=== PATIENT | male | born 1930 | race Caucasian/White ===

== ENCOUNTER 2018-10-29 09:17 | Inpatient (IN) | payer OTHER, BC ==
--- NOTE | 2018-10-29 09:26 | PDOC ---
Attending Attestation - Resident Resident Name: Cliff Romero (aldo) - HPI HPI: 10/29/18 11:49 Pt presents to the ED complaining of frequent falls. Found to be febrile in the ED. Denies other complaints except for back pain. - Physicial Exam PE: 10/29/18 12:29 Agree with resident exam. Patient is alert and oriented and in no acute distress. CV: rrr no m/r/g Pulm: cta b/l Abdomen: soft, non tender, non distended. Ext: RLE pitting edemia, unchanged from chronic as per patient. - Medical Decision Making 10/29/18 12:31 Pt presents to the ED complaining of falls. Found to be febrile. Also found to have UTI. agreeable to abx despite MOLST form. Will start levaquin and admit to medicine.
--- NOTE | 2018-10-29 09:35 | PDOC ---
History of Present Illness - General Chief Complaint: Injury Stated Complaint: FALL Time Seen by Provider: 10/29/18 09:26 History Source: Patient Exam Limitations: No Limitations - History of Present Illness Initial Comments: 10/29/18 10:01 87 yo male pmh of seizures, HTN and a recently replaced pacemaker presents to the ER after an unwitnessed fall [facility]. Pt has had 2 falls over the last 24 hours which is unusual for him. Pt denies CP, palpitations, SOB prior to the falls or after them, denies LUCIA, LOC, changes in speech/vision/strength/sensation , neck pain, back pain, abdominal pain. Pt is AOX3, no medical complaints. Past History - Past Medical History Allergies/Adverse Reactions: Allergies Allergy/AdvReac Type Severity Reaction Status Date / Time No Known Allergies Allergy Verified 10/29/18 09:24 Home Medications: Ambulatory Orders Acetaminophen [Tylenol] 650 mg PO Q6H PRN 10/29/18 Amlodipine Besylate 5 mg PO DAILY 10/29/18 Apixaban [Eliquis] 2.5 mg PO DAILY 10/29/18 Cholecalciferol (Vitamin D3) [Vitamin D3] 2,000 unit PO DAILY 10/29/18 Finasteride 5 mg PO DAILY 10/29/18 Levetiracetam 500 mg PO BID 10/29/18 Levothyroxine [Synthroid -] 50 mcg PO DAILY 10/29/18 Menthol/Dimeth/Aloe Vera/Vit E [Gold Torres Body Lotion] 1 applic TP BID 10/29/18 Metoprolol Succinate [Kapspargo Sprinkle] 50 mg PO DAILY 10/29/18 Multivit-Min/FA/Lycopen/Lutein [Centrum Silver Tablet] 1 each PO DAILY 10/29/18 Ramipril [Altace] 2.5 mg PO DAILY 10/29/18 Tamsulosin HCl [Flomax] 0.4 mg PO DAILY 10/29/18 - Suicide/Smoking/Psychosocial Hx Smoking History: Never smoked Hx Alcohol Use: No Drug/Substance Use Hx: No Review of Systems - Review of Systems Constitutional: No: Chills, Fever HEENTM: No: Blurred Vision, Double Vision Respiratory: No: Shortness of Breath, Productive cough Cardiac (ROS): No: Chest Pain ABD/GI: No: Constipated, Diarrhea, Nausea, Vomiting : No: Burning, Dysuria, Discharge, Frequency, Flank Pain Musculoskeletal: No: Back Pain Integumentary: No: Change in Color Neurological: No: Headache, Numbness, Paresthesia, Weakness *Physical Exam - Vital Signs Last Vital Signs Temp Pulse Resp BP Pulse Ox 100.0 F H 105 H 18 137/62 96 10/29/18 09:24 10/29/18 09:24 10/29/18 09:24 10/29/18 09:24 10/29/18 09:24 - Physical Exam General Appearance: Yes: Nourished, Appropriately Dressed. No: Apparent Distress HEENT: positive: EOMI, KASH Neck: positive: Supple. negative: Carotid bruit Respiratory/Chest: positive: Lungs Clear, Normal Breath Sounds, Respiratory Distress. negative: Accessory Muscle Use, Crackles, Rales, Rhonchi, Stridor, Wheezing Cardiovascular: positive: Regular Rhythm, S1, S2, Tachycardia. negative: Edema , JVD, Murmur Vascular Pulses: Dorsalis-Pedis (R): 4+, Doralis-Pedis (L): 4+ Gastrointestinal/Abdominal: positive: Flat, Soft. negative: Pulsatile Mass, Distended, Guarding, Rebound, Tenderness Musculoskeletal: positive: Normal Inspection. 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 Pt has had 2 falls over the last 24 hours which is unusual for him. Pt denies CP, palpitations, SOB prior to the falls or after them, denies LUCIA, LOC, changes in speech/vision/strength/sensation , neck pain, back pain, abdominal pain. Pt is AOX3, no medical complaints. message for Yanely Cao at [phone], message left at 10 27 am vitals show elevated HR and temp Yanely present in the ED, states the discrepancy in MOLST form regarding no antibiotics was unknown and will discuss with legal team Sepsis order set done Pt has hx of UTIs will straight cath and likely admit 10/29/18 13:54 Given IV antibiotics and fluids WBC count 19 UA positive URINE LEUKOCYTE ESTERASE 3+ and 200+ WBC Pt has hx of UTI as per deborah Discussed case with Dr. Nicholson, agrees to have pt admitted for urosepsis *DC/Admit/Observation/Transfer Diagnosis at time of Disposition: UTI (urinary tract infection) - Discharge Dispostion Condition at time of disposition: Stable Decision to Admit order: Yes - Referrals - Patient Instructions - Post Discharge Activity
[2018-10-29 12:07] LABS: BASO % 0.3 % (0-2.0); HEMOGLOBIN 10.9 GM/dL (11.7-16.9); LYMPH % 7.4 % (8-40); MCH 33.3 pg (25.7-33.7); MCHC 33.9 g/dl (32.0-35.9); MEAN CELL VOLUME 98.3 fl (80-96); MEAN PLT VOLUME 8.5 fl (7.5-11.1); MONO % 7.9 % (3.8-10.2); NEUT % 84.4 % (42.8-82.8); PLATELET COUNT 185 K/MM3 (134-434); RBC 3.26 M/mm3 (4.00-5.60); RDW 13.3 % (11.9-15.9); WHITE BLOOD COUNT 19.1 K/mm3 (4.0-10.0)
[2018-10-29 12:10] LABS: VENOUS PC02 34.9 mmHg (38-52); VENOUS PH 7.44 (7.31-7.41)
[2018-10-29 12:12] LABS: VENOUS PO2 < 49 mmHg (28-48)
[2018-10-29 12:17] LABS: EPI CELLS 0.5 /HPF (0-5/HPF); HYALINE CASTS 1 /lpf (0-8); URINE APPEARANCE CLOUDY; URINE BACTERIA 4974.7 /hpf (NEGATIVE); URINE BILIRUBIN NEGATIVE (NEGATIVE); URINE COLOR YELLOW; URINE GLUCOSE (UA) NEGATIVE (NEGATIVE); URINE KETONE NEGATIVE (NEGATIVE); URINE LEUK ESTERASE 3+ (NEGATIVE); URINE NITRITE NEGATIVE (NEGATIVE); URINE PROTEIN 2+ (NEGATIVE); URINE RBC 3 /hpf (0-4); URINE UROBILINOGEN 0.2 mg/dL (0.2-1.0); URINE WBC 235 /hpf (0-5)
[2018-10-29 12:22] LABS: INR 1.7 (0.83-1.09); PROTHROMBIN TIME (PATIENT) 20.2 SEC (9.7-13.0)
[2018-10-29 12:36] LABS: ALBUMIN 3.2 g/dl (3.4-5.0); ALK PHOS 82 U/L (45-117); ANION GAP 9 MMOL/L (8-16); CALCIUM 9.2 mg/dL (8.5-10.1); CHLORIDE 106 mmol/L (98-107); CO2 25 mmol/L (21-32); CREATININE 1.8 mg/dL (0.55-1.3); GLUCOSE,RANDOM 138 mg/dL (74-106); SGOT/AST 65 U/L (15-37); SGPT/ALT 33 U/L (13-61); SODIUM 139 mmol/L (136-145); TOT PROT 7.3 g/dl (6.4-8.2)
[2018-10-29] MEDS ORDERED: SODIUM CHLORIDE 1,000 ML IV STA (12:42)
[2018-10-29 14:05] LABS: ANISOCYTOSIS 1+; MACROCYTOSIS 1+; PLATELET ESTIMATE NORMAL
[2018-10-29] MEDS ORDERED: cefTRIAXone SODIUM 1 GM VIAL ONE (17:42)
[2018-10-29] MEDS ORDERED: DEXTROSE 5%-WATER - 50 ML IVPB ONE (17:43)
[2018-10-29] MEDS: CEFTRIAXONE 1 GM in DEXTROSE 5%-WATER - 50 ML IVPB SCH (17:46)
[2018-10-29 18:15] VITALS: BMI 30.2
--- NOTE | 2018-10-29 22:32 | HP ---
Admitting History and Physical - Admission History of Present Illness: 10/29/18 10:01 87 yo male pmh of seizures, HTN and a recently replaced pacemaker presents to the ER after an unwitnessed fall [facility]. Pt has had 2 falls over the last 24 hours which is unusual for him. He is able to provide full hx ( No LOC) , he reports one of his falls he stood up and was "unable to move his feet " " they wouldn't move" and he feel. Pt denies CP, palpitations, SOB prior to the falls or after them, denies LUCIA, LOC, changes in speech/vision/strength/sensation, neck pain, back pain, abdominal pain. Pt is AOX3, and provides full history. He has no medical complaints. 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 SSS)) Pulmonary: No: Asthma, Bronchitis Gastrointestinal: No: Ascites, Cancer - Advance Directives Advance Directives: Yes: Living Will, Health Care Proxy, DNR, MOLST - Smoking History Smoking history: Never smoked - Alcohol/Substance Use Hx Alcohol Use: No History of Substance Use: reports: None - Social History Usual Living Arrangement: Yes: Assisted Living ADL: Independent History of Recent Travel: No Home Medications - Allergies Allergies/Adverse Reactions: Allergies Allergy/AdvReac Type Severity Reaction Status Date / Time No Known Allergies Allergy Verified 10/29/18 09:24 - Home Medications Home Medications: Ambulatory Orders Acetaminophen [Tylenol] 650 mg PO Q6H PRN 10/29/18 Apixaban [Eliquis] 2.5 mg PO DAILY 10/29/18 Cholecalciferol (Vitamin D3) [Vitamin D3] 2,000 unit PO DAILY 10/29/18 Levothyroxine [Synthroid -] 50 mcg PO DAILY 10/29/18 Menthol/Dimeth/Aloe Vera/Vit E [Gold Torres Body Lotion] 1 applic TP BID 10/29/18 Metoprolol Succinate [Kapspargo Sprinkle] 50 mg PO DAILY 10/29/18 Multivit-Min/FA/Lycopen/Lutein [Centrum Silver Tablet] 1 each PO DAILY 10/29/18 RX: Amlodipine Besylate 5 mg PO DAILY 10/29/18 RX: Finasteride 5 mg PO DAILY 10/29/18 RX: Levetiracetam 500 mg PO BID 10/29/18 Ramipril [Altace] 2.5 mg PO DAILY 10/29/18 Tamsulosin HCl [Flomax] 0.4 mg PO DAILY 10/29/18 Review of Systems - Review of Systems Constitutional: reports: No Symptoms Eyes: reports: No Symptoms HENT: reports: No Symptoms Neck: reports: No Symptoms Cardiovascular: reports: No Symptoms Respiratory: reports: No Symptoms Gastrointestinal: reports: No Symptoms Genitourinary: reports: No Symptoms Breasts: reports: No Symptoms Reported Musculoskeletal: reports: No Symptoms, Other (right leg swelling - which he reports is usual for him) Integumentary: reports: No Symptoms Neurological: reports: No Symptoms, Incoordination, Pre-Existing Deficit, Seizure. denies: Change in LOC, Change in Speech, Numbness, Parasthesia Endocrine: reports: No Symptoms Hematology/Lymphatic: reports: No Symptoms Psychiatric: reports: No Symptoms Physical Examination Vital Signs: Vital Signs Temperature 98.4 F 10/29/18 18:10 Pulse Rate 100 H 10/29/18 18:10 Respiratory Rate 20 10/29/18 18:10 Blood Pressure 144/63 10/29/18 18:10 O2 Sat by Pulse Oximetry (%) 96 10/29/18 18:19 Constitutional: Yes: Well Nourished, No Distress, Calm Eyes: Yes: Conjunctiva Clear, EOM Intact HENT: Yes: Atraumatic, Normocephalic Neck: Yes: Supple, Trachea Midline Cardiovascular: Yes: Regular Rate and Rhythm Respiratory: Yes: Regular, Wheezes (left sided / exp high pitched non smoker / no hx of asthma) Gastrointestinal: Yes: Normal Bowel Sounds, Soft, Abdomen, Obese ...Rectal Exam: Yes: WNL Renal/: Yes: WNL. No: Bladder Distention Breast(s): Yes: WNL Musculoskeletal: Yes: WNL Extremities: Yes: WNL Edema: No Peripheral Pulses WNL: Yes Wound/Incision: Yes: Clean/Dry Neurological: Yes: Alert, Oriented, Unsteady Gait (unable to test gait - patient reports unsteady). No: Confusion ...Motor Strength: WNL Psychiatric: Yes: Alert, Oriented Labs: CBC, BMP 10/29/18 11:46 10/29/18 11:46 Problem List - Problems (1) Recurrent falls Code(s): R29.6 - REPEATED FALLS (2) UTI (urinary tract infection) Code(s): N39.0 - URINARY TRACT INFECTION, SITE NOT SPECIFIED (3) History of seizures Code(s): Z87.898 - PERSONAL HISTORY OF OTHER SPECIFIED CONDITIONS (4) H/O: CVA (cerebrovascular accident) Code(s): Z86.73 - PRSNL HX OF TIA (TIA), AND CEREB INFRC W/O RESID DEFICITS (5) Hypertension Code(s): I10 - ESSENTIAL (PRIMARY) HYPERTENSION (6) Hypothyroid Code(s): E03.9 - HYPOTHYROIDISM, UNSPECIFIED (7) BPH (benign prostatic hyperplasia) Code(s): N40.0 - BENIGN PROSTATIC HYPERPLASIA WITHOUT LOWER URINRY TRACT SYMP (8) History of permanent cardiac pacemaker placement Code(s): Z95.0 - PRESENCE OF CARDIAC PACEMAKER Assessment/Plan # Recurrent falls unclear if mechanical falls unsteady gait --?? neuropathy neuro eval #UTI seen by several times patient states he does not want to be seen by again u/a c/s done -awaiting c/s rocephin emperic tx ID consult #hx of CVA unclear if seizure cx of CVA stable on current AC meds #Hypothyroid TSH / T4 continue synthroid # CAD hx of PPM - poor historian ??SSS
[2018-10-29] MEDS: levETIRAcetam 500 MG TABLET (FP) PO SCH (22:37)
[2018-10-30] MEDS: ACETAMINOPHEN 325 MG TABLET (FP) PO PRN ×3 (02:12→15:48)
[2018-10-30] MEDS: LEVOTHYROXINE NA 50 MCG TABLET (FP) PO SCH (06:33)
[2018-10-30 07:45] LABS: HEMATOCRIT 32.4 % (35.4-49); MCH 33.3 pg (25.7-33.7); MEAN CELL VOLUME 97.9 fl (80-96); MEAN PLT VOLUME 8.8 fl (7.5-11.1); PLATELET COUNT 213 K/MM3 (134-434); RBC 3.31 M/mm3 (4.00-5.60); RDW 13.7 % (11.9-15.9); WHITE BLOOD COUNT 14.9 K/mm3 (4.0-10.0)
[2018-10-30] MEDS: TAMSULOSIN HCL 0.4 MG CAP PO SCH (08:05)
[2018-10-30 08:45] LABS: BLOOD UREA NITROGEN 29.5 mg/dL (7-18); CALCIUM 8.8 mg/dL (8.5-10.1); CREATININE 1.7 mg/dL (0.55-1.3); MAGNESIUM 2.2 mg/dL (1.8-2.4); POTASSIUM 3.9 mmol/L (3.5-5.1)
[2018-10-30] MEDS ORDERED: cefTRIAXone SODIUM 1 GM VIAL ONE (09:46)
[2018-10-30] MEDS ORDERED: DEXTROSE 5%-WATER - 50 ML IVPB ONE (09:46)
[2018-10-30] MEDS: CEFTRIAXONE 1 GM in DEXTROSE 5%-WATER - 50 ML IVPB SCH (10:49)
[2018-10-30] MEDS: CHOLECALCIFEROL (VIT D3) 1,000 UNIT (25 MCG) TABLET PO SCH (10:49)
[2018-10-30] MEDS: amLODIPine BESYLATE 5 MG TABLET (FP) PO SCH (10:50)
[2018-10-30] MEDS: levETIRAcetam 500 MG TABLET (FP) PO SCH ×2 (10:50→21:11)
[2018-10-30] MEDS: FINASTERIDE 5 MG TABLET (FP) PO SCH (10:50)
[2018-10-30] MEDS: RAMIPRIL 2.5 MG CAPSULE (FP) PO SCH (10:50)
--- NOTE | 2018-10-30 12:54 | PN ---
Progress Note (short form) - Note Progress Note: ID CONSULT DICTATED UTI R/O SEPSIS SECONDARY TO UTI FEVER/LEUKOCYTOSIS R/O SEPSIS FALLS AWAIT SEPSIS W/U CONTINUE EMPIRIC [id number]
--- NOTE | 2018-10-30 13:06 | EKG ---
Test Reason : Blood Pressure : / mmHG Vent. Rate : 094 BPM Atrial Rate : 094 BPM P-R Int : 134 ms QRS Dur : 088 ms QT Int : 362 ms P-R-T Axes : 030 025 059 degrees QTc Int : 452 ms POOR DATA QUALITY, INTERPRETATION MAY BE ADVERSELY AFFECTED NORMAL SINUS RHYTHM NORMAL ECG NO PREVIOUS ECGS AVAILABLE Confirmed by MD Kyle, Darwin ([id number]) on 10/30/2018 1:06:11 PM Referred By: Confirmed By:Darwin Wright MD
--- NOTE | 2018-10-30 14:40 | CONS ---
DATE OF CONSULTATION: DATE OF DICTATION: 10/30/2018 HISTORY OF PRESENT ILLNESS: The patient is an 87-year-old male who was evaluated for urinary tract infection, fever and leukocytosis. He was admitted to the hospital on October 29, 2018 with complaints of back pain after recurrent falls. In the emergency room he was noted to have fever 101. He complained of penile pain, as well as urinary frequency and incontinence. His white blood cell count was noted to be elevated at 19.1. Urinalysis showed many white cells. Urine culture now growing a lactose cable installer repairer helper. He was empirically treated with ceftriaxone. He denies dysuria or hematuria, no complaints of suprapubic or flank pain. He denies prior history of urinary tract infections. He has been followed in the past by a urologist, but was unsure of the name. PAST MEDICAL HISTORY: Positive for hypertension, seizure disorder. PAST SURGICAL HISTORY: He is status post permanent pacemaker. ALLERGIES: No known allergies. MEDICATIONS: Tylenol, amlodipine, Eliquis, Synthroid, metoprolol, Altace, Flomax. SOCIAL HISTORY: He lives at home in the community. He is a non-smoker, non-drinker. SYSTEMS REVIEW: Neurologic: Positive for seizure disorder. He denies loss of consciousness or focal weakness. Cardiac: Negative chest pain or palpitations. Positive permanent pacemaker. Respiratory: Negative cough, or sputum production. Gastrointestinal: Negative vomiting, or diarrhea. Genitourinary: As per HPI. LABORATORY DATA: White count on admission 19.1, presently 14.9, hematocrit 32.4, platelet count 213. Creatinine 1.7. Urinalysis 235 white cells. Blood culture is pending. Urine culture growing a lactose cable installer repairer helper. Chest x-ray negative for acute infiltrate. PHYSICAL EXAMINATION: General: On physical examination he is awake, in no acute distress. Vitals: Temperature 98.5, temperature maximum 101, blood pressure 156/82, pulse 109 regular, respirations 20 per minute. HEENT: Sclera anicteric. Heart: Sounds S1, S2. Lungs: Clear. Abdomen: Soft, no tenderness elicited, no suprapubic or flank tenderness. Extremities: Positive for edema. IMPRESSION: 1. Urinary tract infection, rule out sepsis secondary to urinary tract infection. 2. Fever leukocytosis. 3. Recurrent falls. RECOMMENDATIONS: Will await sepsis workup, continue empiric ceftriaxone. I would obtain follow up renal sonogram in light of previous findings of enlarged prostate and possible bladder mass. Will follow. Thank you for the kind referral. MAC MCCRARY M.D. [id number]
--- NOTE | 2018-10-30 19:57 | CON.NEURO ---
Consult Consult Specialty:: NEUROLOGY-CHAKA SAHU Reason for Consultation:: Falls - History of Present Illness History of Present Illness: 87 yo male pmh of seizures, HTN and a recently replaced pacemaker presents to the ER after an unwitnessed fall [facility]. Pt has had 2 falls over the last 24 hours which is unusual for him. He is able to provide full hx ( No LOC) , he reports one of his falls he stood up and was "unable to move his feet " " they wouldn't move" and he feel. Pt denies CP, palpitations, SOB prior to the falls or after them, denies LUCIA, LOC, changes in speech/vision/strength/sensation, neck pain, back pain, abdominal pain. Pt is AOX3, and provides full history. He has no medical complaints. -States each time he has fallen he has fallen forwards without tripping"just fall forward after I suddenly loose my balance"+ intermittent urinary retention. 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 SSS)) Pulmonary: No: Asthma, Bronchitis Gastrointestinal: No: Ascites, Cancer - Alcohol/Substance Use Hx Alcohol Use: No History of Substance Use: reports: None - Smoking History Smoking history: Never smoked - Social History ADL: Independent History of Recent Travel: No Home Medications - Allergies Allergies/Adverse Reactions: Allergies Allergy/AdvReac Type Severity Reaction Status Date / Time No Known Allergies Allergy Verified 10/29/18 09:24 - Home Medications Home Medications: Ambulatory Orders Acetaminophen [Tylenol] 650 mg PO Q6H PRN 10/29/18 Amlodipine Besylate 5 mg PO DAILY 10/29/18 Apixaban [Eliquis] 2.5 mg PO DAILY 10/29/18 Cholecalciferol (Vitamin D3) [Vitamin D3] 2,000 unit PO DAILY 10/29/18 Finasteride 5 mg PO DAILY 10/29/18 Levetiracetam 500 mg PO BID 10/29/18 Levothyroxine [Synthroid -] 50 mcg PO DAILY 10/29/18 Menthol/Dimeth/Aloe Vera/Vit E [Gold Torres Body Lotion] 1 applic TP BID 10/29/18 Metoprolol Succinate [Kapspargo Sprinkle] 50 mg PO DAILY 10/29/18 Multivit-Min/FA/Lycopen/Lutein [Centrum Silver Tablet] 1 each PO DAILY 10/29/18 Ramipril [Altace] 2.5 mg PO DAILY 10/29/18 Tamsulosin HCl [Flomax] 0.4 mg PO DAILY 10/29/18 Physical Exam-Neuro Vital Signs: Vital Signs Temperature 98.1 F 10/30/18 17:20 Pulse Rate 99 H 10/30/18 17:20 Respiratory Rate 20 10/30/18 17:20 Blood Pressure 133/59 L 10/30/18 17:20 O2 Sat by Pulse Oximetry (%) 93 L 10/29/18 21:00 Labs: CBC, BMP 10/30/18 06:47 10/30/18 06:47 INR, PTT INR 1.70 (0.83-1.09) H 10/29/18 11:46 - Neuro Exam Mini Mental Exam: Intact DTR's: 0 Left Achilles, 0 Right Achilles, 1+ Left Tricep, 1+ Right Tricep, 1+ Left Brachioradialis, 1+ Right Brachioradialis, 2+ Left Bicep, 2+ Right Bicep Babinski: Present (right side. 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 osteophytes, mod DJD) Assessment/Plan Multiple falls, ddx. includes(given increased tone in legs) "lower body parkinsonism, cervical/thoracic spinal stenosis(even though not reported on CT C spine, B12 deficiency Suggest: Vit B12 level, Folate. -If B12 wnl would give trial of Sinemet 25/100 tabs, 1/2 tid x 7 days than 1 tid. Thank you,
--- NOTE | 2018-10-30 23:33 | PN ---
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 osteophytes, mod DJD) Microbiology 10/29/18 11:46 Blood - Peripheral Venous Blood Culture - Preliminary NO GROWTH OBTAINED AFTER 24 HOURS, INCUBATION TO CONTINUE FOR 4 DAYS. 10/29/18 11:15 Blood - Peripheral Venous Blood Culture - Preliminary NO GROWTH OBTAINED AFTER 24 HOURS, INCUBATION TO CONTINUE FOR 4 DAYS. 10/29/18 12:00 Urine - Urine Clean Catch Urine Culture - Preliminary Lactose Fermenting Neg Bacilli Active Medications Acetaminophen (Tylenol -) 650 mg PO Q6H PRN PRN Reason: PAIN Last Admin: 10/30/18 15:48 Dose: 650 mg Amlodipine Besylate (Norvasc -) 5 mg PO DAILY [facility] Last Admin: 10/30/18 10:50 Dose: 5 mg Apixaban (Eliquis -) 2.5 mg PO DAILY [facility] Cholecalciferol (Vitamin D3 -) 2,000 unit PO DAILY [facility] Last Admin: 10/30/18 10:49 Dose: 2,000 unit Finasteride (Proscar -) 5 mg PO DAILY [facility] Last Admin: 10/30/18 10:50 Dose: 5 mg Ceftriaxone Sodium 1 gm/ (Dextrose) 50 mls @ 100 mls/hr IVPB DAILY [facility]; Protocol Last Admin: 10/30/18 10:49 Dose: 100 mls/hr Levetiracetam (Keppra -) 500 mg PO BID [facility] Last Admin: 10/30/18 21:11 Dose: 500 mg Levothyroxine Sodium (Synthroid -) 50 mcg PO AM [facility] Last Admin: 10/30/18 06:33 Dose: 50 mcg Metoprolol Succinate (Toprol Xl -) 50 mg PO DAILY [facility] Last Admin: 10/30/18 10:50 Dose: 50 mg Ramipril (Altace -) 2.5 mg PO DAILY [facility] Last Admin: 10/30/18 10:50 Dose: 2.5 mg Tamsulosin HCl (Flomax -) 0.4 mg PO DAILY@0830 [facility] Last Admin: 10/30/18 08:05 Dose: 0.4 mg Assessment/Plan # Recurrent falls appreciate neuro input lower body parkinsonism vs cervical / thoracic stenosis vs B12 def B12 level ordered PT evaluation reviewed #UTI seen by several times patient states he does not want to be seen by again u/a c/s done -awaiting c/s rocephin emperic tx ID consult appreciated #hx of CVA unclear if seizure cx of CVA stable on current AC meds # CAD hx of PPM stable on curent medication # BPH continue proscar / flomax # Hypothyroid continue synthroid Problem List - Problems (1) Recurrent falls Code(s): R29.6 - REPEATED FALLS (2) UTI (urinary tract infection) Code(s): N39.0 - URINARY TRACT INFECTION, SITE NOT SPECIFIED (3) History of seizures Code(s): Z87.898 - PERSONAL HISTORY OF OTHER SPECIFIED CONDITIONS (4) BPH (benign prostatic hyperplasia) Code(s): N40.0 - BENIGN PROSTATIC HYPERPLASIA WITHOUT LOWER URINRY TRACT SYMP (5) H/O: CVA (cerebrovascular accident) Code(s): Z86.73 - PRSNL HX OF TIA (TIA), AND CEREB INFRC W/O RESID DEFICITS (6) Hypertension Code(s): I10 - ESSENTIAL (PRIMARY) HYPERTENSION (7) Hypothyroid Code(s): E03.9 - HYPOTHYROIDISM, UNSPECIFIED (8) Urinary retention due to benign prostatic hyperplasia Code(s): N40.1 - BENIGN PROSTATIC HYPERPLASIA WITH LOWER URINARY TRACT SYMP; R33.8 - OTHER RETENTION OF URINE
[2018-10-31] MEDS: LEVOTHYROXINE NA 50 MCG TABLET (FP) PO SCH (06:12)
[2018-10-31] MEDS ORDERED: cefTRIAXone SODIUM 1 GM VIAL ONE (08:52)
[2018-10-31] MEDS ORDERED: DEXTROSE 5%-WATER - 50 ML IVPB ONE (08:53)
[2018-10-31] MEDS: TAMSULOSIN HCL 0.4 MG CAP PO SCH (10:06)
[2018-10-31] MEDS: CHOLECALCIFEROL (VIT D3) 1,000 UNIT (25 MCG) TABLET PO SCH (10:07)
[2018-10-31] MEDS: amLODIPine BESYLATE 5 MG TABLET (FP) PO SCH (10:08)
[2018-10-31] MEDS: FINASTERIDE 5 MG TABLET (FP) PO SCH (10:08)
[2018-10-31] MEDS: RAMIPRIL 2.5 MG CAPSULE (FP) PO SCH (10:08)
[2018-10-31] MEDS: levETIRAcetam 500 MG TABLET (FP) PO SCH ×2 (10:08→23:10)
[2018-10-31] MEDS: CEFTRIAXONE 1 GM in DEXTROSE 5%-WATER - 50 ML IVPB SCH (10:09)
--- NOTE | 2018-10-31 10:48 | PN ---
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 osteophytes, mod DJD) Microbiology 10/29/18 11:46 Blood - Peripheral Venous Blood Culture - Preliminary NO GROWTH OBTAINED AFTER 24 HOURS, INCUBATION TO CONTINUE FOR 4 DAYS. 10/29/18 11:15 Blood - Peripheral Venous Blood Culture - Preliminary NO GROWTH OBTAINED AFTER 24 HOURS, INCUBATION TO CONTINUE FOR 4 DAYS. 10/29/18 12:00 Urine - Urine Clean Catch Urine Culture - Preliminary Lactose Fermenting Neg Bacilli Active Medications Acetaminophen (Tylenol -) 650 mg PO Q6H PRN PRN Reason: PAIN Last Admin: 10/30/18 15:48 Dose: 650 mg Amlodipine Besylate (Norvasc -) 5 mg PO DAILY [facility] Last Admin: 10/31/18 10:08 Dose: 5 mg Apixaban (Eliquis -) 2.5 mg PO DAILY [facility] Cholecalciferol (Vitamin D3 -) 2,000 unit PO DAILY [facility] Last Admin: 10/31/18 10:07 Dose: 2,000 unit Finasteride (Proscar -) 5 mg PO DAILY [facility] Last Admin: 10/31/18 10:08 Dose: 5 mg Ceftriaxone Sodium 1 gm/ (Dextrose) 50 mls @ 100 mls/hr IVPB DAILY [facility]; Protocol Last Admin: 10/31/18 10:09 Dose: 100 mls/hr Levetiracetam (Keppra -) 500 mg PO BID [facility] Last Admin: 10/31/18 10:08 Dose: 500 mg Levothyroxine Sodium (Synthroid -) 50 mcg PO AM [facility] Last Admin: 10/31/18 06:12 Dose: 50 mcg Metoprolol Succinate (Toprol Xl -) 50 mg PO DAILY [facility] Last Admin: 10/31/18 10:08 Dose: 50 mg Ramipril (Altace -) 2.5 mg PO DAILY [facility] Last Admin: 10/31/18 10:08 Dose: 2.5 mg Tamsulosin HCl (Flomax -) 0.4 mg PO DAILY@0830 [facility] Last Admin: 10/31/18 10:06 Dose: 0.4 mg Assessment/Plan # Recurrent falls appreciate neuro input lower body parkinsonism vs cervical / thoracic stenosis vs B12 def B12 level ordered PT evaluation reviewed discussed with patient need for additional rehab -- he agrees willl arrange for STR #UTI seen by several times patient states he does not want to be seen by again u/a c/s done -awaiting c/s rocephin emperic tx ID consult appreciated #hx of CVA unclear if seizure cx of CVA stable on current AC meds # CAD hx of PPM stable on curent medication # BPH continue proscar / flomax PSA # Hypothyroid continue synthroid Problem List - Problems (1) Recurrent falls Code(s): R29.6 - REPEATED FALLS (2) UTI (urinary tract infection) Code(s): N39.0 - URINARY TRACT INFECTION, SITE NOT SPECIFIED (3) History of seizures Code(s): Z87.898 - PERSONAL HISTORY OF OTHER SPECIFIED CONDITIONS (4) BPH (benign prostatic hyperplasia) Code(s): N40.0 - BENIGN PROSTATIC HYPERPLASIA WITHOUT LOWER URINRY TRACT SYMP (5) Hypertension Code(s): I10 - ESSENTIAL (PRIMARY) HYPERTENSION (6) H/O: CVA (cerebrovascular accident) Code(s): Z86.73 - PRSNL HX OF TIA (TIA), AND CEREB INFRC W/O RESID DEFICITS (7) History of permanent cardiac pacemaker placement Code(s): Z95.0 - PRESENCE OF CARDIAC PACEMAKER (8) Hypothyroid Code(s): E03.9 - HYPOTHYROIDISM, UNSPECIFIED
[2018-10-31 11:40] LABS: HEMOGLOBIN 11.8 GM/dL (11.7-16.9); MCH 33.1 pg (25.7-33.7); MCHC 33.7 g/dl (32.0-35.9); MEAN CELL VOLUME 98.2 fl (80-96); MEAN PLT VOLUME 8.5 fl (7.5-11.1); MONO % 7.7 % (3.8-10.2); NEUT % 86.3 % (42.8-82.8); PLATELET COUNT 306 K/MM3 (134-434); RBC 3.56 M/mm3 (4.00-5.60); RDW 13.4 % (11.9-15.9); WHITE BLOOD COUNT 13.5 K/mm3 (4.0-10.0)
[2018-10-31 12:07] LABS: BILIRUBIN,TOTAL 0.4 mg/dL (0.2-1); BLOOD UREA NITROGEN 50.8 mg/dL (7-18); CALCIUM 9.3 mg/dL (8.5-10.1); CREATININE 3.2 mg/dL (0.55-1.3); POTASSIUM 4.3 mmol/L (3.5-5.1); TOT PROT 7.8 g/dl (6.4-8.2)
[2018-10-31] MEDS: APIXABAN 2.5 MG TABLET PO SCH (15:58)
[2018-11-01] MEDS: LEVOTHYROXINE NA 50 MCG TABLET (FP) PO SCH (06:11)
[2018-11-01] MEDS ORDERED: cefTRIAXone SODIUM 1 GM VIAL ONE (08:03)
[2018-11-01] MEDS ORDERED: DEXTROSE 5%-WATER - 50 ML IVPB ONE (08:03)
[2018-11-01] MEDS: TAMSULOSIN HCL 0.4 MG CAP PO SCH (08:42)
[2018-11-01] MEDS ORDERED: SODIUM CHLORIDE 1,000 ML IV SCH (10:00)
--- NOTE | 2018-11-01 10:05 | PN ---
Progress Note (short form) - Note Progress Note: 87 y/o male found sitting in chair. Denies pain and discomfort. Vital Signs Period Temp Pulse Resp BP Sys/Currie Pulse Ox Last 24 Hr 97.2 F-98 F 64-106 18-20 126-151/53-73 98 CBC, BMP 10/31/18 11:15 10/31/18 11:15 HEENT- NL Neck-Trachea midline Lungs- CTAB Heart- S1/S2 Abd- soft, nt Ext- RT LE trace edema LT LE no edema Active Medications Acetaminophen (Tylenol -) 650 mg PO Q6H PRN PRN Reason: PAIN Last Admin: 10/30/18 15:48 Dose: 650 mg Amlodipine Besylate (Norvasc -) 5 mg PO DAILY [facility] Last Admin: 10/31/18 10:08 Dose: 5 mg Apixaban (Eliquis -) 2.5 mg PO DAILY [facility] Last Admin: 10/31/18 15:58 Dose: 2.5 mg Cholecalciferol (Vitamin D3 -) 2,000 unit PO DAILY [facility] Last Admin: 10/31/18 10:07 Dose: 2,000 unit Finasteride (Proscar -) 5 mg PO DAILY [facility] Last Admin: 10/31/18 10:08 Dose: 5 mg Ceftriaxone Sodium 1 gm/ (Dextrose) 50 mls @ 100 mls/hr IVPB DAILY [facility]; Protocol Last Admin: 10/31/18 10:09 Dose: 100 mls/hr Sodium Chloride (Normal Saline -) 1,000 mls @ 75 mls/hr IV ASDIR [facility] Stop: 11/01/18 23:19 Levetiracetam (Keppra -) 500 mg PO BID [facility] Last Admin: 10/31/18 23:10 Dose: 500 mg Levothyroxine Sodium (Synthroid -) 50 mcg PO AM [facility] Last Admin: 11/01/18 06:11 Dose: 50 mcg Metoprolol Succinate (Toprol Xl -) 50 mg PO DAILY [facility] Last Admin: 10/31/18 10:08 Dose: 50 mg Ramipril (Altace -) 2.5 mg PO DAILY [facility] Last Admin: 10/31/18 10:08 Dose: 2.5 mg Tamsulosin HCl (Flomax -) 0.4 mg PO DAILY@0830 [facility] Last Admin: 09/19/19 08:42 Dose: 0.4 mg Assessment/Plan # Recurrent falls 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 / thoracic stenosis vs B12 def #UTI seen by several times patient declines again cont IV rocephin #hx of CVA cont AC # CAD hx of PPM # BPH continue proscar / flomax PSA # Hypothyroid continue synthroid Problem List - Problems (1) Recurrent falls Code(s): R29.6 - REPEATED FALLS (2) UTI (urinary tract infection) Code(s): N39.0 - URINARY TRACT INFECTION, SITE NOT SPECIFIED (3) History of seizures Code(s): Z87.898 - PERSONAL HISTORY OF OTHER SPECIFIED CONDITIONS (4) BPH (benign prostatic hyperplasia) Code(s): N40.0 - BENIGN PROSTATIC HYPERPLASIA WITHOUT LOWER URINRY TRACT SYMP (5) Hypertension Code(s): I10 - ESSENTIAL (PRIMARY) HYPERTENSION (6) H/O: CVA (cerebrovascular accident) Code(s): Z86.73 - PRSNL HX OF TIA (TIA), AND CEREB INFRC W/O RESID DEFICITS (7) History of permanent cardiac pacemaker placement Code(s): Z95.0 - PRESENCE OF CARDIAC PACEMAKER (8) Hypothyroid Code(s): E03.9 - HYPOTHYROIDISM, UNSPECIFIED
[2018-11-01] MEDS: CHOLECALCIFEROL (VIT D3) 1,000 UNIT (25 MCG) TABLET PO SCH (10:23)
[2018-11-01] MEDS: amLODIPine BESYLATE 5 MG TABLET (FP) PO SCH (10:23)
[2018-11-01] MEDS: RAMIPRIL 2.5 MG CAPSULE (FP) PO SCH (10:23)
[2018-11-01] MEDS: levETIRAcetam 500 MG TABLET (FP) PO SCH ×2 (10:23→23:01)
[2018-11-01] MEDS: APIXABAN 2.5 MG TABLET PO SCH (10:23)
[2018-11-01] MEDS: FINASTERIDE 5 MG TABLET (FP) PO SCH (10:23)
[2018-11-01] MEDS: CEFTRIAXONE 1 GM in DEXTROSE 5%-WATER - 50 ML IVPB SCH (11:04)
[2018-11-01 19:57] LABS: ALBUMIN 2.5 g/dl (3.4-5.0); BILIRUBIN,TOTAL 0.3 mg/dL (0.2-1); BLOOD UREA NITROGEN 75.1 mg/dL (7-18); CALCIUM 8.9 mg/dL (8.5-10.1); CREATININE 4.1 mg/dL (0.55-1.3); POTASSIUM 4.8 mmol/L (3.5-5.1); TOT PROT 6.6 g/dl (6.4-8.2)
--- NOTE | 2018-11-01 23:30 | PN ---
Progress Note, Physician History of Present Illness: AWAKE, ALERT C/O PENILE PAIN MONTEJO IN PLACE AFEBRILE WBC ELEVATED WORSENING AZOTEMIA BC(-) URINE C/S KLEBSIELLA - Current Medication List Current Medications: Active Medications Acetaminophen (Tylenol -) 650 mg PO Q6H PRN PRN Reason: PAIN Last Admin: 10/30/18 15:48 Dose: 650 mg Amlodipine Besylate (Norvasc -) 5 mg PO DAILY [facility] Last Admin: 11/01/18 10:23 Dose: 5 mg Apixaban (Eliquis -) 2.5 mg PO DAILY [facility] Last Admin: 11/01/18 10:23 Dose: 2.5 mg Cholecalciferol (Vitamin D3 -) 2,000 unit PO DAILY [facility] Last Admin: 11/01/18 10:23 Dose: 2,000 unit Finasteride (Proscar -) 5 mg PO DAILY [facility] Last Admin: 11/01/18 10:23 Dose: 5 mg Ceftriaxone Sodium 1 gm/ (Dextrose) 50 mls @ 100 mls/hr IVPB DAILY [facility]; Protocol Last Admin: 11/01/18 11:04 Dose: 100 mls/hr Levetiracetam (Keppra -) 500 mg PO BID [facility] Last Admin: 11/01/18 23:01 Dose: 500 mg Levothyroxine Sodium (Synthroid -) 50 mcg PO AM [facility] Last Admin: 11/01/18 06:11 Dose: 50 mcg Metoprolol Succinate (Toprol Xl -) 50 mg PO DAILY [facility] Last Admin: 11/01/18 10:23 Dose: 50 mg Ramipril (Altace -) 2.5 mg PO DAILY [facility] Last Admin: 11/01/18 10:23 Dose: 2.5 mg Tamsulosin HCl (Flomax -) 0.4 mg PO DAILY@0830 [facility] Last Admin: 11/01/18 08:42 Dose: 0.4 mg - Objective Vital Signs: Vital Signs Temperature 98.4 F 11/01/18 16:30 Pulse Rate 93 H 11/01/18 16:30 Respiratory Rate 20 11/01/18 16:30 Blood Pressure 134/76 11/01/18 16:30 O2 Sat by Pulse Oximetry (%) 98 11/01/18 08:23 Constitutional: Yes: No Distress Cardiovascular: Yes: Regular Rate and Rhythm, S1, S2 Respiratory: Yes: CTA Bilaterally Gastrointestinal: Yes: Normal Bowel Sounds Edema: No Labs: CBC, BMP 10/31/18 11:15 11/01/18 18:30 INR, PTT INR 1.70 (0.83-1.09) H 10/29/18 11:46 Assessment/Plan KLEBSIELLA UTI RENAL FAILURE FEVER/LEUKOCYTOSIS IMPROVED CONTINUE CEFTRIAXONE
[2018-11-02] MEDS: LEVOTHYROXINE NA 50 MCG TABLET (FP) PO SCH (06:31)
[2018-11-02 06:43] LABS: BASO % 0.4 % (0-2.0); EOS % 3.9 % (0-4.5); HEMATOCRIT 31.2 % (35.4-49); HEMOGLOBIN 10.5 GM/dL (11.7-16.9); LYMPH % 17.1 % (8-40); MCH 33.3 pg (25.7-33.7); MCHC 33.8 g/dl (32.0-35.9); MEAN CELL VOLUME 98.7 fl (80-96); MEAN PLT VOLUME 8.6 fl (7.5-11.1); MONO % 7.6 % (3.8-10.2); PLATELET COUNT 239 K/MM3 (134-434); RBC 3.16 M/mm3 (4.00-5.60); RDW 13.6 % (11.9-15.9); WHITE BLOOD COUNT 8.1 K/mm3 (4.0-10.0)
[2018-11-02 07:34] LABS: BLOOD UREA NITROGEN 63.9 mg/dL (7-18); CALCIUM 8.5 mg/dL (8.5-10.1); CREATININE 2.6 mg/dL (0.55-1.3); POTASSIUM 4.3 mmol/L (3.5-5.1)
[2018-11-02] MEDS ORDERED: cefTRIAXone SODIUM 1 GM VIAL ONE (09:12)
[2018-11-02] MEDS ORDERED: PT OWN MED DRAWER 7, Y5N ONE (09:12)
[2018-11-02] MEDS ORDERED: DEXTROSE 5%-WATER - 50 ML IVPB ONE (09:12)
[2018-11-02] MEDS: TAMSULOSIN HCL 0.4 MG CAP PO SCH (09:16)
[2018-11-02] MEDS: RAMIPRIL 2.5 MG CAPSULE (FP) PO SCH (09:18)
[2018-11-02] MEDS: CHOLECALCIFEROL (VIT D3) 1,000 UNIT (25 MCG) TABLET PO SCH (09:18)
[2018-11-02] MEDS: FINASTERIDE 5 MG TABLET (FP) PO SCH (09:18)
[2018-11-02] MEDS: amLODIPine BESYLATE 5 MG TABLET (FP) PO SCH (09:18)
[2018-11-02] MEDS: levETIRAcetam 500 MG TABLET (FP) PO SCH ×2 (09:18→21:39)
[2018-11-02] MEDS: CEFTRIAXONE 1 GM in DEXTROSE 5%-WATER - 50 ML IVPB SCH (09:19)
[2018-11-02] MEDS: APIXABAN 2.5 MG TABLET PO SCH (09:19)
--- NOTE | 2018-11-02 13:32 | PN ---
Progress Note (short form) - Note Progress Note: 87 y/o male found sitting in chair. Confused at times. Told niece, "I have needles in my penis". Denies pain and discomfort. Vital Signs Period Temp Pulse Resp BP Sys/Currie Pulse Ox Last 24 Hr 97.2 F-98.4 F 75-96 19-22 120-151/49-91 97 CBC, BMP 11/02/18 05:30 11/02/18 05:30 HEENT-NL Neck- supple Lungs- CTAb Heart- S1/S2 Abd- soft, Nt Gu- Perez in place- urine clear and yellow Ext- No Le edema Active Medications Acetaminophen (Tylenol -) 650 mg PO Q6H PRN PRN Reason: PAIN Last Admin: 10/30/18 15:48 Dose: 650 mg Amlodipine Besylate (Norvasc -) 5 mg PO DAILY [facility] Last Admin: 11/02/18 09:18 Dose: 5 mg Apixaban (Eliquis -) 2.5 mg PO DAILY [facility] Last Admin: 11/02/18 09:19 Dose: 2.5 mg Cholecalciferol (Vitamin D3 -) 2,000 unit PO DAILY [facility] Last Admin: 11/02/18 09:18 Dose: 2,000 unit Finasteride (Proscar -) 5 mg PO DAILY [facility] Last Admin: 11/02/18 09:18 Dose: 5 mg Ceftriaxone Sodium 1 gm/ (Dextrose) 50 mls @ 100 mls/hr IVPB DAILY [facility]; Protocol Last Admin: 11/02/18 09:19 Dose: 100 mls/hr Levetiracetam (Keppra -) 500 mg PO BID [facility] Last Admin: 11/02/18 09:18 Dose: 500 mg Levothyroxine Sodium (Synthroid -) 50 mcg PO AM [facility] Last Admin: 11/02/18 06:31 Dose: 50 mcg Metoprolol Succinate (Toprol Xl -) 50 mg PO DAILY [facility] Last Admin: 11/02/18 09:19 Dose: 50 mg Ramipril (Altace -) 2.5 mg PO DAILY [facility] Last Admin: 11/02/18 09:18 Dose: 2.5 mg Tamsulosin HCl (Flomax -) 0.4 mg PO DAILY@0830 [facility] Last Admin: 11/02/18 09:16 Dose: 0.4 mg Assessment/Plan # Recurrent falls 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 / thoracic stenosis vs B12 def #UTI seen by several times patient declines again UTI with Klebsiella cont IV rocephin #Obstructive Uropathy Residual >900 cc Bun/ creat decreased today Monitor BUN/ Creat Perez in place consult #hx of CVA cont AC # CAD hx of PPM # BPH continue proscar / flomax PSA # Hypothyroid continue synthroid Problem List - Problems (1) Recurrent falls Code(s): R29.6 - REPEATED FALLS (2) UTI (urinary tract infection) Code(s): N39.0 - URINARY TRACT INFECTION, SITE NOT SPECIFIED (3) History of seizures Code(s): Z87.898 - PERSONAL HISTORY OF OTHER SPECIFIED CONDITIONS (4) BPH (benign prostatic hyperplasia) Code(s): N40.0 - BENIGN PROSTATIC HYPERPLASIA WITHOUT LOWER URINRY TRACT SYMP (5) Hypertension Code(s): I10 - ESSENTIAL (PRIMARY) HYPERTENSION (6) H/O: CVA (cerebrovascular accident) Code(s): Z86.73 - PRSNL HX OF TIA (TIA), AND CEREB INFRC W/O RESID DEFICITS (7) History of permanent cardiac pacemaker placement Code(s): Z95.0 - PRESENCE OF CARDIAC PACEMAKER (8) Hypothyroid Code(s): E03.9 - HYPOTHYROIDISM, UNSPECIFIED
--- NOTE | 2018-11-02 16:12 | CON.GU ---
Consult Consult Specialty:: Referred by:: kinjal Reason for Consultation:: urinary retention - History of Present Illness Chief Complaint: urinary retention History of Present Illness: 87 year old male with a history of overflow incontinence. Nelson catheter was placed. 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 SSS)) Pulmonary: No: Asthma, Bronchitis Gastrointestinal: No: Ascites, Cancer Renal/: Yes: BPH - Alcohol/Substance Use Hx Alcohol Use: No History of Substance Use: reports: None - Smoking History Smoking history: Never smoked - Social History ADL: Independent History of Recent Travel: No Home Medications - Allergies Allergies/Adverse Reactions: Allergies Allergy/AdvReac Type Severity Reaction Status Date / Time No Known Allergies Allergy Verified 10/29/18 09:24 - Home Medications Home Medications: Ambulatory Orders Acetaminophen [Tylenol] 650 mg PO Q6H PRN 10/29/18 Amlodipine Besylate 5 mg PO DAILY 10/29/18 Apixaban [Eliquis] 2.5 mg PO DAILY 10/29/18 Cholecalciferol (Vitamin D3) [Vitamin D3] 2,000 unit PO DAILY 10/29/18 Finasteride 5 mg PO DAILY 10/29/18 Levetiracetam 500 mg PO BID 10/29/18 Levothyroxine [Synthroid -] 50 mcg PO DAILY 10/29/18 Menthol/Dimeth/Aloe Vera/Vit E [Gold Torres Body Lotion] 1 applic TP BID 10/29/18 Metoprolol Succinate [Kapspargo Sprinkle] 50 mg PO DAILY 10/29/18 Multivit-Min/FA/Lycopen/Lutein [Centrum Silver Tablet] 1 each PO DAILY 10/29/18 Ramipril [Altace] 2.5 mg PO DAILY 10/29/18 Tamsulosin HCl [Flomax] 0.4 mg PO DAILY 10/29/18 Review of Systems - Review of Systems Genitourinary: reports: Frequency, Incontinence, Urgency Physical Exam- Vital Signs: Vital Signs Temperature 95.3 F L 11/02/18 15:00 Pulse Rate 68 11/02/18 15:00 Respiratory Rate 18 11/02/18 15:00 Blood Pressure 132/89 11/02/18 15:00 O2 Sat by Pulse Oximetry (%) 97 11/01/18 21:00 Renal/: Yes: Nelson Present, Incontinence. No: Bladder Distention, CVA Tenderness - Left, CVA Tenderness - Right, Hematuria Labs: CBC, BMP 11/02/18 05:30 11/02/18 05:30 Problem List - Problems (1) Urinary retention due to benign prostatic hyperplasia Assessment/Plan: maintain nelson for now. on flomax. treat UTI. will need outpatient minimally invasive prostate procedure. Code(s): N40.1 - BENIGN PROSTATIC HYPERPLASIA WITH LOWER URINARY TRACT SYMP; R33.8 - OTHER RETENTION OF URINE (2) BPH (benign prostatic hyperplasia) Code(s): N40.0 - BENIGN PROSTATIC HYPERPLASIA WITHOUT LOWER URINRY TRACT SYMP (3) UTI (urinary tract infection) Code(s): N39.0 - URINARY TRACT INFECTION, SITE NOT SPECIFIED
--- NOTE | 2018-11-02 17:24 | PN ---
Progress Note, Physician History of Present Illness: AWAKE, ALERT OOB IN CHAIR REPORTS LESS PENILE PAIN MONTEJO IN PLACE AFEBRILE WBC WNL AZOTEMIA IMPROVED BC(-) URINE C/S KLEBSIELLA - Current Medication List Current Medications: Active Medications Acetaminophen (Tylenol -) 650 mg PO Q6H PRN PRN Reason: PAIN Last Admin: 10/30/18 15:48 Dose: 650 mg Amlodipine Besylate (Norvasc -) 5 mg PO DAILY [facility] Last Admin: 11/02/18 09:18 Dose: 5 mg Apixaban (Eliquis -) 2.5 mg PO DAILY [facility] Last Admin: 11/02/18 09:19 Dose: 2.5 mg Cholecalciferol (Vitamin D3 -) 2,000 unit PO DAILY [facility] Last Admin: 11/02/18 09:18 Dose: 2,000 unit Finasteride (Proscar -) 5 mg PO DAILY [facility] Last Admin: 11/02/18 09:18 Dose: 5 mg Ceftriaxone Sodium 1 gm/ (Dextrose) 50 mls @ 100 mls/hr IVPB DAILY [facility]; Protocol Last Admin: 11/02/18 09:19 Dose: 100 mls/hr Levetiracetam (Keppra -) 500 mg PO BID [facility] Last Admin: 11/02/18 09:18 Dose: 500 mg Levothyroxine Sodium (Synthroid -) 50 mcg PO AM [facility] Last Admin: 11/02/18 06:31 Dose: 50 mcg Metoprolol Succinate (Toprol Xl -) 50 mg PO DAILY [facility] Last Admin: 11/02/18 09:19 Dose: 50 mg Ramipril (Altace -) 2.5 mg PO DAILY [facility] Last Admin: 11/02/18 09:18 Dose: 2.5 mg Tamsulosin HCl (Flomax -) 0.4 mg PO DAILY@0830 [facility] Last Admin: 11/02/18 09:16 Dose: 0.4 mg - Objective Vital Signs: Vital Signs Temperature 95.3 F L 11/02/18 15:00 Pulse Rate 68 11/02/18 15:00 Respiratory Rate 18 11/02/18 15:00 Blood Pressure 132/89 11/02/18 15:00 O2 Sat by Pulse Oximetry (%) 97 11/02/18 09:00 Constitutional: Yes: No Distress Eyes: Yes: Conjunctiva Clear Cardiovascular: Yes: Regular Rate and Rhythm, S1, S2 Respiratory: Yes: CTA Bilaterally Gastrointestinal: Yes: Normal Bowel Sounds, Soft. No: Tenderness Labs: CBC, BMP 11/02/18 05:30 11/02/18 05:30 INR, PTT INR 1.70 (0.83-1.09) H 10/29/18 11:46 Assessment/Plan KLEBSIELLA UTI RENAL FAILURE FEVER/LEUKOCYTOSIS RESOLVED SUBSTITUTE KEFLEX 500MG PO BID 7D
[2018-11-02] MEDS: CEPHALEXIN MONOHYDRATE 500 MG CAPSULE (UD) PO SCH (21:39)
[2018-11-03] MEDS: LEVOTHYROXINE NA 50 MCG TABLET (FP) PO SCH (06:26)
[2018-11-03 06:39] LABS: BASO % 0.7 % (0-2.0); HEMATOCRIT 30.3 % (35.4-49); HEMOGLOBIN 10.3 GM/dL (11.7-16.9); LYMPH % 21.2 % (8-40); MCH 33.6 pg (25.7-33.7); MCHC 34.1 g/dl (32.0-35.9); MEAN CELL VOLUME 98.5 fl (80-96); MEAN PLT VOLUME 8.5 fl (7.5-11.1); MONO % 8.8 % (3.8-10.2); NEUT % 66.3 % (42.8-82.8); PLATELET COUNT 223 K/MM3 (134-434); RBC 3.08 M/mm3 (4.00-5.60); RDW 13.5 % (11.9-15.9); WHITE BLOOD COUNT 6.9 K/mm3 (4.0-10.0)
[2018-11-03 07:04] LABS: BLOOD UREA NITROGEN 47.1 mg/dL (7-18); CALCIUM 8.1 mg/dL (8.5-10.1); CREATININE 1.5 mg/dL (0.55-1.3); POTASSIUM 3.8 mmol/L (3.5-5.1)
[2018-11-03] MEDS: RAMIPRIL 2.5 MG CAPSULE (FP) PO SCH (09:31)
[2018-11-03] MEDS: levETIRAcetam 500 MG TABLET (FP) PO SCH ×2 (09:31→21:25)
[2018-11-03] MEDS: FINASTERIDE 5 MG TABLET (FP) PO SCH (09:31)
[2018-11-03] MEDS: amLODIPine BESYLATE 5 MG TABLET (FP) PO SCH (09:32)
[2018-11-03] MEDS: TAMSULOSIN HCL 0.4 MG CAP PO SCH (09:32)
[2018-11-03] MEDS: APIXABAN 2.5 MG TABLET PO SCH (09:32)
[2018-11-03] MEDS: CEPHALEXIN MONOHYDRATE 500 MG CAPSULE (UD) PO SCH ×2 (09:32→21:25)
[2018-11-03] MEDS: CHOLECALCIFEROL (VIT D3) 1,000 UNIT (25 MCG) TABLET PO SCH (09:32)
--- NOTE | 2018-11-03 09:53 | PN ---
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 osteophytes, mod DJD) Microbiology 10/29/18 11:46 Blood - Peripheral Venous Blood Culture - Preliminary NO GROWTH OBTAINED AFTER 96 HOURS, INCUBATION TO CONTINUE FOR 1 DAYS. 10/29/18 11:15 Blood - Peripheral Venous Blood Culture - Preliminary NO GROWTH OBTAINED AFTER 96 HOURS, INCUBATION TO CONTINUE FOR 1 DAYS. 10/29/18 12:00 Urine - Urine Clean Catch Urine Culture - Final Klebsiella Pneumoniae Active Medications Acetaminophen (Tylenol -) 650 mg PO Q6H PRN PRN Reason: PAIN Last Admin: 10/30/18 15:48 Dose: 650 mg Amlodipine Besylate (Norvasc -) 5 mg PO DAILY [facility] Last Admin: 11/03/18 09:32 Dose: 5 mg Apixaban (Eliquis -) 2.5 mg PO DAILY [facility] Last Admin: 11/03/18 09:32 Dose: 2.5 mg Cephalexin HCl (Keflex -) 500 mg PO BID [facility] Last Admin: 11/03/18 09:32 Dose: 500 mg Cholecalciferol (Vitamin D3 -) 2,000 unit PO DAILY [facility] Last Admin: 11/03/18 09:32 Dose: 2,000 unit Finasteride (Proscar -) 5 mg PO DAILY [facility] Last Admin: 11/03/18 09:31 Dose: 5 mg Levetiracetam (Keppra -) 500 mg PO BID [facility] Last Admin: 11/03/18 09:31 Dose: 500 mg Levothyroxine Sodium (Synthroid -) 50 mcg PO AM [facility] Last Admin: 11/03/18 06:26 Dose: 50 mcg Metoprolol Succinate (Toprol Xl -) 50 mg PO DAILY [facility] Last Admin: 11/03/18 09:32 Dose: 50 mg Ramipril (Altace -) 2.5 mg PO DAILY [facility] Last Admin: 11/03/18 09:31 Dose: 2.5 mg Tamsulosin HCl (Flomax -) 0.8 mg PO DAILY@0830 [facility] Last Admin: 11/03/18 09:32 Dose: 0.8 mg Assessment/Plan # BPH with outlet obstruction required nelson retention > 900 cc urine and inc in Cr >4.0 renal function normalizing after nelson insertion continue proscar / inc dose of flomax will trial d/c nelson in am #UTI u/a c/s done -Klebsiella keflex BID ID consult appreciated # Recurrent falls appreciate neuro input lower body parkinsonism vs cervical / thoracic stenosis vs B12 def B12 level ordered PT evaluation reviewed discussed with patient need for additional rehab -- he agrees willl arrange for STR #hx of CVA unclear if seizure cx of CVA stable on current AC meds # CAD hx of PPM stable on curent medication # Hypothyroid continue synthroid Problem List - Problems (1) Recurrent falls Code(s): R29.6 - REPEATED FALLS (2) UTI (urinary tract infection) Code(s): N39.0 - URINARY TRACT INFECTION, SITE NOT SPECIFIED (3) History of seizures Code(s): Z87.898 - PERSONAL HISTORY OF OTHER SPECIFIED CONDITIONS (4) BPH (benign prostatic hyperplasia) Code(s): N40.0 - BENIGN PROSTATIC HYPERPLASIA WITHOUT LOWER URINRY TRACT SYMP (5) Hypertension Code(s): I10 - ESSENTIAL (PRIMARY) HYPERTENSION (6) H/O: CVA (cerebrovascular accident) Code(s): Z86.73 - PRSNL HX OF TIA (TIA), AND CEREB INFRC W/O RESID DEFICITS (7) History of permanent cardiac pacemaker placement Code(s): Z95.0 - PRESENCE OF CARDIAC PACEMAKER (8) Hypothyroid Code(s): E03.9 - HYPOTHYROIDISM, UNSPECIFIED
[2018-11-04] MEDS: LEVOTHYROXINE NA 50 MCG TABLET (FP) PO SCH (06:09)
[2018-11-04 07:38] LABS: EOS % 2.4 % (0-4.5); HEMATOCRIT 31.5 % (35.4-49); HEMOGLOBIN 10.9 GM/dL (11.7-16.9); LYMPH % 28.7 % (8-40); MCH 33.8 pg (25.7-33.7); MCHC 34.6 g/dl (32.0-35.9); MEAN CELL VOLUME 97.6 fl (80-96); MONO % 8.8 % (3.8-10.2); NEUT % 59.1 % (42.8-82.8); PLATELET COUNT 232 K/MM3 (134-434); RBC 3.23 M/mm3 (4.00-5.60); RDW 13.3 % (11.9-15.9); WHITE BLOOD COUNT 7.7 K/mm3 (4.0-10.0)
[2018-11-04 08:04] LABS: BLOOD UREA NITROGEN 30.9 mg/dL (7-18); CALCIUM 8.6 mg/dL (8.5-10.1); CREATININE 1.3 mg/dL (0.55-1.3); POTASSIUM 3.8 mmol/L (3.5-5.1)
[2018-11-04] MEDS: TAMSULOSIN HCL 0.4 MG CAP PO SCH (09:43)
[2018-11-04] MEDS: levETIRAcetam 500 MG TABLET (FP) PO SCH ×2 (09:44→23:11)
[2018-11-04] MEDS: amLODIPine BESYLATE 5 MG TABLET (FP) PO SCH (09:44)
[2018-11-04] MEDS: RAMIPRIL 2.5 MG CAPSULE (FP) PO SCH (09:44)
[2018-11-04] MEDS: CHOLECALCIFEROL (VIT D3) 1,000 UNIT (25 MCG) TABLET PO SCH (09:44)
[2018-11-04] MEDS: FINASTERIDE 5 MG TABLET (FP) PO SCH (09:44)
[2018-11-04] MEDS: APIXABAN 2.5 MG TABLET PO SCH (09:45)
[2018-11-04] MEDS: CEPHALEXIN MONOHYDRATE 500 MG CAPSULE (UD) PO SCH ×2 (09:45→23:11)
--- NOTE | 2018-11-04 16:38 | PN ---
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 osteophytes, mod DJD) Microbiology 10/29/18 11:15 Blood - Peripheral Venous Blood Culture - Final NO GROWTH AFTER 5 DAYS INCUBATION 10/29/18 11:46 Blood - Peripheral Venous Blood Culture - Final NO GROWTH AFTER 5 DAYS INCUBATION 10/29/18 12:00 Urine - Urine Clean Catch Urine Culture - Final Klebsiella Pneumoniae Active Medications Acetaminophen (Tylenol -) 650 mg PO Q6H PRN PRN Reason: PAIN Last Admin: 10/30/18 15:48 Dose: 650 mg Amlodipine Besylate (Norvasc -) 5 mg PO DAILY [facility] Last Admin: 11/04/18 09:44 Dose: 5 mg Apixaban (Eliquis -) 2.5 mg PO DAILY [facility] Last Admin: 11/04/18 09:45 Dose: 2.5 mg Cephalexin HCl (Keflex -) 500 mg PO BID [facility] Last Admin: 11/04/18 09:45 Dose: 500 mg Cholecalciferol (Vitamin D3 -) 2,000 unit PO DAILY [facility] Last Admin: 11/04/18 09:44 Dose: 2,000 unit Finasteride (Proscar -) 5 mg PO DAILY [facility] Last Admin: 11/04/18 09:44 Dose: 5 mg Levetiracetam (Keppra -) 500 mg PO BID [facility] Last Admin: 11/04/18 09:44 Dose: 500 mg Levothyroxine Sodium (Synthroid -) 50 mcg PO AM [facility] Last Admin: 11/04/18 06:09 Dose: 50 mcg Metoprolol Succinate (Toprol Xl -) 50 mg PO DAILY [facility] Last Admin: 11/04/18 09:45 Dose: 50 mg Ramipril (Altace -) 2.5 mg PO DAILY [facility] Last Admin: 11/04/18 09:44 Dose: 2.5 mg Tamsulosin HCl (Flomax -) 0.8 mg PO DAILY@0830 [facility] Last Admin: 11/04/18 09:43 Dose: 0.8 mg Assessment/Plan # BPH with outlet obstruction required nelson retention > 900 cc urine and inc in Cr >4.0 renal function normalizing after nelson insertion elevated PSA - will follow up with continue proscar / inc dose of flomax / ABX will trial d/c nelson today if voiding freely probable d/c in am if obstructed will need follow up in hosp #UTI u/a c/s done -Klebsiella keflex BID ID consult appreciated # Recurrent falls appreciate neuro input lower body parkinsonism vs cervical / thoracic stenosis vs B12 def B12 level ordered - low normal -- will trial B12 inj IM PT evaluation reviewed discussed with patient need for additional rehab -- he agrees willl arrange for STR #hx of CVA unclear if seizure cx of CVA stable on current AC meds # CAD hx of PPM stable on current medication # Hypothyroid continue synthroid Problem List - Problems (1) Recurrent falls Code(s): R29.6 - REPEATED FALLS (2) UTI (urinary tract infection) Code(s): N39.0 - URINARY TRACT INFECTION, SITE NOT SPECIFIED (3) History of seizures Code(s): Z87.898 - PERSONAL HISTORY OF OTHER SPECIFIED CONDITIONS (4) BPH (benign prostatic hyperplasia) Code(s): N40.0 - BENIGN PROSTATIC HYPERPLASIA WITHOUT LOWER URINRY TRACT SYMP (5) Hypertension Code(s): I10 - ESSENTIAL (PRIMARY) HYPERTENSION (6) H/O: CVA (cerebrovascular accident) Code(s): Z86.73 - PRSNL HX OF TIA (TIA), AND CEREB INFRC W/O RESID DEFICITS (7) History of permanent cardiac pacemaker placement Code(s): Z95.0 - PRESENCE OF CARDIAC PACEMAKER (8) Hypothyroid Code(s): E03.9 - HYPOTHYROIDISM, UNSPECIFIED
[2018-11-04] MEDS: CYANOCOBALAMIN (VITAMIN B-12) 1000 MCG/1 ML VIAL IM SCH (17:42)
[2018-11-05] MEDS: LEVOTHYROXINE NA 50 MCG TABLET (FP) PO SCH (06:00)
[2018-11-05 07:45] LABS: BLOOD UREA NITROGEN 26.2 mg/dL (7-18); CALCIUM 8.5 mg/dL (8.5-10.1); CREATININE 1.2 mg/dL (0.55-1.3); POTASSIUM 3.7 mmol/L (3.5-5.1)
[2018-11-05 08:01] LABS: EOS % 2.6 % (0-4.5); HEMATOCRIT 29.7 % (35.4-49); HEMOGLOBIN 10.2 GM/dL (11.7-16.9); MCH 33.3 pg (25.7-33.7); MCHC 34.3 g/dl (32.0-35.9); MEAN CELL VOLUME 97.2 fl (80-96); MEAN PLT VOLUME 8.6 fl (7.5-11.1); MONO % 6.9 % (3.8-10.2); NEUT % 62.5 % (42.8-82.8); PLATELET COUNT 240 K/MM3 (134-434); RBC 3.06 M/mm3 (4.00-5.60); RDW 13.5 % (11.9-15.9); WHITE BLOOD COUNT 7.4 K/mm3 (4.0-10.0)
[2018-11-05] MEDS ORDERED: PT OWN MED DRAWER 7, Y5N ONE (09:50)
[2018-11-05] MEDS: CHOLECALCIFEROL (VIT D3) 1,000 UNIT (25 MCG) TABLET PO SCH (09:53)
[2018-11-05] MEDS: amLODIPine BESYLATE 5 MG TABLET (FP) PO SCH (09:53)
[2018-11-05] MEDS: CYANOCOBALAMIN (VITAMIN B-12) 1000 MCG/1 ML VIAL IM SCH (09:53)
[2018-11-05] MEDS: APIXABAN 2.5 MG TABLET PO SCH (09:53)
[2018-11-05] MEDS: levETIRAcetam 500 MG TABLET (FP) PO SCH ×2 (09:53→21:36)
[2018-11-05] MEDS: RAMIPRIL 2.5 MG CAPSULE (FP) PO SCH (09:53)
[2018-11-05] MEDS: FINASTERIDE 5 MG TABLET (FP) PO SCH (09:53)
[2018-11-05] MEDS: CEPHALEXIN MONOHYDRATE 500 MG CAPSULE (UD) PO SCH ×2 (09:53→21:36)
[2018-11-05] MEDS: TAMSULOSIN HCL 0.4 MG CAP PO SCH (09:53)
--- NOTE | 2018-11-05 14:25 | PN ---
Progress Note (short form) - Note Progress Note: patient seen and examined in room called last night - patient with urinary retention required re insertion of nelson will need to recall ?? 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 osteophytes, mod DJD) Microbiology 10/29/18 11:15 Blood - Peripheral Venous Blood Culture - Final NO GROWTH AFTER 5 DAYS INCUBATION 10/29/18 11:46 Blood - Peripheral Venous Blood Culture - Final NO GROWTH AFTER 5 DAYS INCUBATION 10/29/18 12:00 Urine - Urine Clean Catch Urine Culture - Final Klebsiella Pneumoniae Active Medications Acetaminophen (Tylenol -) 650 mg PO Q6H PRN PRN Reason: PAIN Last Admin: 10/30/18 15:48 Dose: 650 mg Amlodipine Besylate (Norvasc -) 5 mg PO DAILY [facility] Last Admin: 11/05/18 09:53 Dose: 5 mg Apixaban (Eliquis -) 2.5 mg PO DAILY [facility] Last Admin: 11/05/18 09:53 Dose: 2.5 mg Cephalexin HCl (Keflex -) 500 mg PO BID [facility] Last Admin: 11/05/18 09:53 Dose: 500 mg Cholecalciferol (Vitamin D3 -) 2,000 unit PO DAILY [facility] Last Admin: 11/05/18 09:53 Dose: 2,000 unit Cyanocobalamin (Vitamin B12 Injection -) 1,000 mcg IM DAILY [facility] Last Admin: 11/05/18 09:53 Dose: 1,000 mcg Finasteride (Proscar -) 5 mg PO DAILY [facility] Last Admin: 11/05/18 09:53 Dose: 5 mg Levetiracetam (Keppra -) 500 mg PO BID [facility] Last Admin: 11/05/18 09:53 Dose: 500 mg Levothyroxine Sodium (Synthroid -) 50 mcg PO AM [facility] Last Admin: 11/05/18 06:00 Dose: 50 mcg Metoprolol Succinate (Toprol Xl -) 50 mg PO DAILY [facility] Last Admin: 11/05/18 09:53 Dose: 50 mg Ramipril (Altace -) 2.5 mg PO DAILY [facility] Last Admin: 11/05/18 09:53 Dose: 2.5 mg Tamsulosin HCl (Flomax -) 0.8 mg PO DAILY@0830 [facility] Last Admin: 11/05/18 09:53 Dose: 0.8 mg Assessment/Plan # BPH with urinary obstruction inc flomax / proscar / ABX failed trial of voiding - required nelson overnight will recall # Recurrent falls appreciate neuro input lower body parkinsonism vs cervical / thoracic stenosis vs B12 def B12 level ordered PT evaluation reviewed #UTI seen by several times patient states he does not want to be seen by again u/a c/s done -awaiting c/s rocephin emperic tx ID consult appreciated #hx of CVA unclear if seizure cx of CVA stable on current AC meds # CAD hx of PPM stable on curent medication # BPH continue proscar / flomax # Hypothyroid continue synthroid Problem List - Problems (1) Recurrent falls Code(s): R29.6 - REPEATED FALLS (2) UTI (urinary tract infection) Code(s): N39.0 - URINARY TRACT INFECTION, SITE NOT SPECIFIED (3) History of seizures Code(s): Z87.898 - PERSONAL HISTORY OF OTHER SPECIFIED CONDITIONS (4) BPH (benign prostatic hyperplasia) Code(s): N40.0 - BENIGN PROSTATIC HYPERPLASIA WITHOUT LOWER URINRY TRACT SYMP (5) H/O: CVA (cerebrovascular accident) Code(s): Z86.73 - PRSNL HX OF TIA (TIA), AND CEREB INFRC W/O RESID DEFICITS (6) Hypertension Code(s): I10 - ESSENTIAL (PRIMARY) HYPERTENSION (7) Hypothyroid Code(s): E03.9 - HYPOTHYROIDISM, UNSPECIFIED (8) Urinary retention due to benign prostatic hyperplasia Code(s): N40.1 - BENIGN PROSTATIC HYPERPLASIA WITH LOWER URINARY TRACT SYMP; R33.8 - OTHER RETENTION OF URINE
[2018-11-06] MEDS: LEVOTHYROXINE NA 50 MCG TABLET (FP) PO SCH (06:07)
[2018-11-06] MEDS: APIXABAN 2.5 MG TABLET PO SCH (10:20)
[2018-11-06] MEDS: TAMSULOSIN HCL 0.4 MG CAP PO SCH (10:20)
[2018-11-06] MEDS: FINASTERIDE 5 MG TABLET (FP) PO SCH (10:20)
[2018-11-06] MEDS: levETIRAcetam 500 MG TABLET (FP) PO SCH (10:20)
[2018-11-06] MEDS: RAMIPRIL 2.5 MG CAPSULE (FP) PO SCH (10:20)
[2018-11-06] MEDS: amLODIPine BESYLATE 5 MG TABLET (FP) PO SCH (10:20)
[2018-11-06] MEDS: CEPHALEXIN MONOHYDRATE 500 MG CAPSULE (UD) PO SCH (10:21)
[2018-11-06] MEDS: CYANOCOBALAMIN (VITAMIN B-12) 1000 MCG/1 ML VIAL IM SCH (10:21)
[2018-11-06] MEDS: CHOLECALCIFEROL (VIT D3) 1,000 UNIT (25 MCG) TABLET PO SCH (10:21)
--- NOTE | 2018-11-06 12:56 | DS ---
Physical Examination Vital Signs: Vital Signs Temperature 98.6 F 11/06/18 10:00 Pulse Rate 71 11/06/18 10:00 Respiratory Rate 18 11/06/18 10:00 Blood Pressure 119/59 L 11/06/18 10:00 O2 Sat by Pulse Oximetry (%) 95 11/05/18 21:00 Findings/Remarks: 10/29/18 10:01 87 yo male pmh of seizures, HTN and a recently replaced pacemaker presents to the ER after an unwitnessed fall [facility]. Pt has had 2 falls over the last 24 hours which is unusual for him. He is able to provide full hx ( No LOC) , he reports one of his falls he stood up and was "unable to move his feet " " they wouldn't move" and he feel. Pt denies CP, palpitations, SOB prior to the falls or after them, denies LUCIA, LOC, changes in speech/vision/strength/sensation, neck pain, back pain, abdominal pain. Pt is AOX3, and provides full history. He has no medical complaints. Hospital stay was complicated by urinary obstruction. He is currently on Flomax /proscar and completed ABX tx for UTI --will repeat u/a and C/S as out patient. Patient will be d/c'd with nelson in place and follow up with . Constitutional: Yes: Well Nourished, No Distress, Calm Eyes: Yes: Conjunctiva Clear, EOM Intact HENT: Yes: Atraumatic, Normocephalic Neck: Yes: Trachea Midline Respiratory: Yes: CTA Bilaterally Gastrointestinal: Yes: Normal Bowel Sounds, Soft. No: Distention ...Rectal Exam: Yes: Deferred Renal/: Yes: Nelson Present. No: Bladder Distention, Hematuria Breast(s): Yes: WNL Musculoskeletal: Yes: Joint Stiffness Extremities: Yes: WNL. No: Deformity Edema: Yes Edema: LLE: Trace, RLE: Trace Peripheral Pulses WNL: Yes Integumentary: Yes: WNL Neurological: Yes: Alert, Oriented, Pre-Existing Deficit, Unsteady Gait Psychiatric: Yes: Alert, Oriented Labs: CBC, BMP 11/05/18 06:50 11/05/18 06:50 Discharge Summary Reason For Visit: UTI Current Active Problems BPH (benign prostatic hyperplasia) (Acute) H/O: CVA (cerebrovascular accident) (Acute) History of permanent cardiac pacemaker placement (Acute) History of seizures (Acute) Hypertension (Acute) Hypothyroid (Acute) Recurrent falls (Acute) UTI (urinary tract infection) (Acute) Urinary retention due to benign prostatic hyperplasia (Acute) Condition: Stable - Instructions Referrals: Dany Ramirez MD [Staff Physician] - Disposition: [facility] FACILITY - Home Medications Comprehensive Discharge Medication List: Ambulatory Orders Acetaminophen [Tylenol] 650 mg PO Q6H PRN 10/29/18 Amlodipine Besylate 5 mg PO DAILY 10/29/18 Apixaban [Eliquis] 2.5 mg PO DAILY 10/29/18 Cholecalciferol (Vitamin D3) [Vitamin D3] 2,000 unit PO DAILY 10/29/18 Finasteride 5 mg PO DAILY 10/29/18 Levetiracetam 500 mg PO BID 10/29/18 Levothyroxine [Synthroid -] 50 mcg PO DAILY 10/29/18 Menthol/Dimeth/Aloe Vera/Vit E [Gold Torres Body Lotion] 1 applic TP BID 10/29/18 Metoprolol Succinate [Kapspargo Sprinkle] 50 mg PO DAILY 10/29/18 Multivit-Min/FA/Lycopen/Lutein [Centrum Silver Tablet] 1 each PO DAILY 10/29/18 Ramipril [Altace] 2.5 mg PO DAILY 10/29/18 Tamsulosin HCl [Flomax] 0.8 mg PO DAILY 10/29/18
[2018-11-06 14:50] VITALS: BP 129/54; PULSE 74; TEMP 97.9
== END 2018-11-06 14:45 | DRG 552 ==
LOC: JER 09:17 → JERBED 14:07 → J8W 17:23
PROVIDERS: ADMIT Family Medicine; ATTEND Family Medicine
DX: M48.02 Spinal stenosis, cervical region (principal); N39.0 Urinary tract infection, site not specified; M48.04 Spinal stenosis, thoracic region; I10 Essential (primary) hypertension; Z95.0 Presence of cardiac pacemaker; E03.9 Hypothyroidism, unspecified; N40.0 Benign prostatic hyperplasia without lower urinary tract symptoms; R29.6 Repeated falls; I25.10 Atherosclerotic heart disease of native coronary artery without angina pectoris; G40.909 Epilepsy, unspecified, not intractable, without status epilepticus; N40.1 Benign prostatic hyperplasia with lower urinary tract symptoms; R33.8 Other retention of urine; B96.1 Klebsiella pneumoniae [K. pneumoniae] as the cause of diseases classified elsewhere; G20 Parkinson's disease; N28.9 Disorder of kidney and ureter, unspecified; E53.8 Deficiency of other specified B group vitamins
CPT/HCPCS: 36415; 70450-TC; 71045-TC-FY; 72125-TC; 80048; 80053; 81003; 82607; 82746; 82803; 83605; 83735; 84153; 84443; 84484; 85025; 85027; 85610; 85730; 87040; 87086; 87186; 93005; 93010; 97116-GP; 97162-GP; 99284-25; J7030

== ENCOUNTER 2018-12-23 10:40 | Inpatient (IN) | payer OTHER, BC ==
--- NOTE | 2018-12-23 10:57 | PDOC ---
History of Present Illness - General History Source: Patient Exam Limitations: No Limitations - History of Present Illness Initial Comments: 88 yo M with a hx of HTN, hx of TIA, dysphagia, and BPH (off eliquis for 1 week for upcoming TURP in 2 days) presents to the emergency department from his skilled nursing [facility] for weakness, tachycardia, and hypotension. Per the facility , he had a BP initially of 178/133 with a heart rate of 130. They gave him, PO, norvasc 5 mg, metoprolol 50 mg, and ramipril 2.5 mg at 8:30 am. The patient then had a BP of 97/54 with a heart rate in the 170s. In our department, he is unable to provide a history due to AMS. <West Holley - Last Filed: 12/23/18 18:48> <Kerri Hussein - Last Filed: 12/25/18 12:28> - General Stated Complaint: HIGH BP Time Seen by Provider: 12/23/18 10:49 Past History - Past Medical History Cardiac Disorders: Yes (Sick Sinus Syndrome, A-Fib) CVA: Yes (NO RESIDUAL) COPD: No Disorders: Yes (BPH) HTN: Yes Seizures: Yes Thyroid Disease: Yes - Immunization History Immunization Up to Date: Yes - Psycho Social/Smoking Cessation Hx Smoking History: Never smoked Hx Alcohol Use: No Drug/Substance Use Hx: No Substance Use Type: None <West Holley - Last Filed: 12/23/18 18:48> <Kerri Hussein - Last Filed: 12/25/18 12:28> - Past Medical History Allergies/Adverse Reactions: Allergies Allergy/AdvReac Type Severity Reaction Status Date / Time No Known Allergies Allergy Verified 10/29/18 09:24 Home Medications: Ambulatory Orders Acetaminophen 325 mg PO QID 12/23/18 Amlodipine Besylate [Norvasc -] 5 mg PO DAILY 12/23/18 Apixaban [Eliquis] 2.5 mg PO DAILY 12/23/18 Cholecalciferol (Vitamin D3) [Vitamin D] 2,000 unit PO DAILY 12/23/18 Finasteride 5 mg PO DAILY 12/23/18 Levetiracetam 500 mg PO BID 12/23/18 Levothyroxine [Synthroid -] 50 mcg PO DAILY 12/23/18 Metoprolol Succinate 50 mg PO DAILY 12/23/18 Multivitamins [Tab-A-Vit -] 1 tab PO DAILY 12/23/18 Ramipril [Altace] 2.5 mg PO DAILY 12/23/18 Tamsulosin HCl [Flomax] 0.4 mg PO DAILY 12/23/18 *Physical Exam - Physical Exam General Appearance: Yes: Nourished, Appropriately Dressed. No: Apparent Distress, Obese HEENT: positive: EOMI, KASH, Normal Voice, Symmetrical, Hearing Grossly Normal, Other (dry mucous membranes). negative: Pharynx Normal (abrasions inside the mouth lower lip), Pale Conjunctivae, Scleral Icterus (R), Scleral Icterus (L), Muffled/Hoarse voice, Pharyngeal Erythema, Tonsillar Exudate, Tonsillar Erythema , Excessive drooling Neck: positive: Trachea midline, Supple. negative: Tender, Lymphadenopathy (R) , Lymphadenopathy (L), Tender lateral, Tender midline Respiratory/Chest: positive: Decreased Breath Sounds (at the bases bilaterally) . negative: Chest Tender, Respiratory Distress, Accessory Muscle Use Cardiovascular: positive: Tachycardia, Systolic Murmur (grade 1), Irregularly Irregular Gastrointestinal/Abdominal: positive: Normal Bowel Sounds, Flat, Soft. negative : Tender, Distended, Guarding, Rebound, Tenderness, Hernia Lymphatic: negative: Adenopathy Musculoskeletal: positive: Normal Inspection. negative: CVA Tenderness, Vertebral Tenderness Extremity: positive: Normal Inspection, Normal Range of Motion. 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 negative: Fully Oriented (oriented to self only) <West Holley - Last Filed: 12/23/18 18:48> - Vital Signs Last Vital Signs Temp Pulse Resp BP Pulse Ox 97.6 F 159 H 30 H 89/49 L 94 L 12/23/18 11:56 12/23/18 12:25 12/23/18 12:25 12/23/18 12:25 12/23/18 12:10 <Kerri Hussein - Last Filed: 12/25/18 12:28> Procedures - Central Line Central Line Lumen: triple Central Line Position: internal jugular (R) Anesthesia: 1% Lidocaine Amount of anesthesia (ccs): 5 Complications: none Post Central Line Insertion: sutured, good blood return, position confirmed w/ CXR <LeydiWest - Last Filed: 12/23/18 18:48> - Bedside Ultrasound Remarks: 12/23/18 13:17 POCUS renal exam performed, indication includes abdominal/flank pain. views obtained: bilateral kidneys in short and long axis, bladder. findings: bilateral moderate hydronephrosis. urinary retention of acute nature, volume > 1000 ml - Impression: acute urinary retention with bilateral hydronephrosis. 12/25/18 12:27 <Kerri Hussein - Last Filed: 12/25/18 12:28> ED Treatment Course - LABORATORY CBC & Chemistry Diagram: 12/23/18 11:15 12/23/18 10:45 <LeydiWest - Last Filed: 12/23/18 18:48> - LABORATORY CBC & Chemistry Diagram: 12/25/18 06:00 12/25/18 06:00 - ADDITIONAL ORDERS Additional order review: Laboratory Results 12/23/18 12/23/18 12/23/18 11:15 10:45 10:45 PT with INR Cancelled INR Cancelled PTT (Actin FS) Cancelled Sodium 133 L Potassium 4.7 Chloride 104 Carbon Dioxide 16 L Anion Gap 13 BUN 69.9 H Creatinine 4.6 H Est GFR (CKD-EPI)AfAm 12.17 Est GFR (CKD-EPI)NonAf 10.50 Random Glucose 148 H Calcium 9.3 Magnesium 2.2 Total Bilirubin 0.5 AST 35 ALT 17 Alkaline Phosphatase 105 Creatine Kinase 677 H Creatine Kinase Index 0.5 CK-MB (CK-2) 3.8 H Troponin I 0.03 B-Natriuretic Peptide 5815.3 H Total Protein 7.7 Albumin 2.9 L TSH 0.37 D 12/23/18 11:15 RBC 3.71 L MCV 97.9 H MCHC 33.5 RDW 14.2 MPV 10.1 D Neutrophils % 94.6 H D Lymphocytes % 2.2 L D Monocytes % 3.0 L Eosinophils % 0.0 D Basophils % 0.2 - RADIOLOGY Radiology Studies Ordered: Category Date Time Status CHEST X-RAY PORTABLE* [RAD] Stat Radiology 12/23/18 10:48 Completed - Medications Given in the ED: ED Medications Discontinued Medications Generic Name Dose Route Start Last Admin Trade Name Brandyn PRN Reason Stop Dose Admin Calcium Gluconate 1,000 mg 12/23/18 10:59 12/23/18 11:25 Calcium Gluconate 10% - IVPB 12/23/18 11:00 1,000 mg ONCE ONE Administration Digoxin 0.25 mg 12/23/18 12:16 12/23/18 12:27 Lanoxin Injection - IVPUSH 12/23/18 12:17 0.25 mg ONCE ONE Administration Diltiazem HCl 10 mg 12/23/18 12:10 12/23/18 12:19 Cardizem Injection - IVPB 12/23/18 12:11 Not Given ONCE ONE <Kerri Hussein - Last Filed: 12/25/18 12:28> Medical Decision Making - Medical Decision Making 12/23/18 12:00 BP was 87/46 prior to administration of the epinephrine (dose is 10 mcg/mL). 1 mL was delivered 11:52 am. At 11:54 am, the BP was 93/57. 12/23/18 12:06 BP was 99/65 with HR of 162. Another 1 mL (10 mcg/mL) was delivered at 12:07 pm. 12/23/18 12:14 BP at 90/52. Patient continues to be tachycardic at 170s. Will cancel diltiazem order and start digoxin 0.25 mg IV. 12/23/18 13:09 BP at 104/92 at 12:40 pm (98). At 13:09, the patient's BP was 81/53. The patient is s/p 1 L of NS started by EMS. The patient continues to have tachycardia with BPM 130-150s. A call was placed out to Dr. Bassett. 12/23/18 18:48 Patient's healthcare proxy, Yanely, stated that she wants a central line to be placed, reversing her original standing on no central line when the patient initially presented. A central line was placed (refer to procedure note). <West Holley - Last Filed: 12/23/18 18:48> - Critical Care Time Total Critical Care Time (minutes): 60 (afib rvr, septic shock, acute renal failure) Critical Care Statement: The care of this patient involved high complexity decision making to prevent further life threatening deterioration of the patient 's condition and/or to evaluate & treat vital organ system(s) failure or risk of failure. <Kerri Hussein - Last Filed: 12/25/18 12:28> Discharge - Discharge Information Problems reviewed: Yes <West Holley - Last Filed: 12/23/18 18:48> - Discharge Information Problems reviewed: Yes - Admission Yes <Kerri Hussein - Last Filed: 12/25/18 12:28> - Discharge Information Clinical Impression/Diagnosis: Atrial fibrillation with RVR, Acute UTI, Septic shock Acute renal failure Qualifiers: Acute renal failure type: unspecified Qualified Code(s): N17.9 - Acute kidney failure, unspecified Condition: Guarded
[2018-12-23] MEDS ORDERED: SODIUM CHLORIDE 0.9% 500 ML INFUS.BAG IV ONE (10:59)
[2018-12-23] MEDS ORDERED: CALCIUM GLUCONATE 10% - 1,000 MG/10 ML VIAL IVPB ONE (10:59)
--- NOTE | 2018-12-23 11:08 | PDOC ---
Documentation entered by Jannet Diaz SCRIBE, acting as scribe for Kerri Hussein MD. Kerri Hussein MD: This documentation has been prepared by the Joe moran Nirvannie, SCRIBE, under my direction and personally reviewed by me in its entirety. I confirm that the documentation accurately reflects all work, treatment, procedures, and medical decision making performed by me. Attending Attestation - Resident Resident Name: West Holley - ED Attending Attestation I have performed the following: I have examined & evaluated the patient, The case was reviewed & discussed with the resident, I agree w/resident's findings & plan - HPI HPI: 12/23/18 11:04 88 YOM with PMHx of seizures, TIA/CVA, dysphagia, HTN, Afib on Eliquis, PPM, HTN , HLD, BPH presents to the ER from [facility] for evaluation of weakness. while at [place], noted to be hypertensive and tachycardic (VS BP 178/133, HR 130, SpO2 93%), given norvasc 5mg, metoprolol 50mg, ramipril 2.5mg at approx 830am. repeat BP 97/54. he is due for TURP in 2 days, held off on Eliquis x 1 week. recently sent to [facility] and has been there x 1 month for falls. per niece at bedside, he has been having garbled speech x 1 week. 12/23/18 11:40 - Physicial Exam PE: 12/23/18 11:07 Agree with the resident's HPI and PE as documented in the electronic medical record. NAD, EOMI, PERRL, nl conjunctiva, anicteric; neck supple. chest wall PPM palpated. lungs clear, +irreg irregular, +tachycardic. abdomen soft, +palp bladder, distended abdomen and tender over suprapubic region.. +nelson in place, no urine output. normal external genitalia. Back nontender. CUEVA x4, slow speech , No peripheral edema. pale color for ethnicity, WWP. 12/23/18 11:21 12/23/18 13:39 - Critical Care Time Total Critical Care Time: 60 (Afib RVR) Critical Care Statement: The care of this patient involved high complexity decision making to prevent further life threatening deterioration of the patient 's condition and/or to evaluate & treat vital organ system(s) failure or risk of failure. - Medical Decision Making 12/23/18 11:10 Vital Signs Temp Pulse Resp BP Pulse Ox 180 H 20 98/48 L 96 12/23/18 10:45 12/23/18 10:45 12/23/18 10:45 12/23/18 10:45 Vital signs notable for atrial fibrillation RVR, heart rate 170s, BP is currently soft 98/50. We will continue with IV fluid hydration, IV calcium. This is most likely secondary to his BP drop from multiple antihypertensives administered at approximately 8:30 AM today. He is currently mentating, will also consider digoxin after findings of CARLOS/ARF with Cr 4.5, baseline normal, considering bladder outlet obstruction/obstructive uropathy. Bedside ultrasound with mild to moderate bilateral hydronephrosis with very distended bladder with retention of almost 1 L and layering of blood clot. Will change out the Nelson as this could be etiology for his acute renal failure , leukocytosis also noted which could be coming from infection with the obstruction so we will check UA with urine culture and antibiotics as necessary. Patient was given push dose epinephrine's of 20 mcg, with minimal effect on his hemodynamics, continues to be in atrial fibrillation RVR so we will trial digoxin. Hold off on AV node blockade at this time as it will also worsen his hypotension. IV calcium also administered and IV fluids for volume repletion after nelson coude catheter placed, 1.5L urine output, with bloody and sedimentation, pascale with infection, c/w urinary stasis. abx - zosyn given catheter use and UTI. confirmed with patient's niece, Yanely - DNR/DNI, no prolonged use of pressors, central line, intubation, aggressive or heroic measures, CPR/resuscitation. ok with IV/temp pressors, hydration, nelson 12/23/18 13:01 - spoke with Dr Richard - agree with plan Dr Bassett for cards cs- rec'd amiodarone gtt. heparin gtt for resuming AC. 12/23/18 13:40 ICU consult for admission, admit for AFIB RVR with hypotension, requiring amio gtt. urinary retention, acute renal failure, urinary tract infection. admit to primary care provider. 12/23/18 15:08 12/23/18 15:56 Heart Score/ECG Review #1 ECG reviewed & interpreted by me at: 10:45 General ECG Interpretation: Normal Intervals Compared to previous ECG there are: Changes noted 12/23/18 11:11 EKG with atrial fibrillation RVR 169 bpm, no interval abnormalities, narrow QRS , ST and T wave segments and morphology normal. Nonspecific T wave abnormalities
[2018-12-23] MEDS ORDERED: CALCIUM GLUCONATE 10% - 1,000 MG/10 ML VIAL ONE ×2 (11:17→11:18)
[2018-12-23 11:42] LABS: BASO % 0.2 % (0-2.0); HEMATOCRIT 36.3 % (35.4-49); HEMOGLOBIN 12.2 GM/dL (11.7-16.9); LYMPH % 2.2 % (8-40); MCH 32.8 pg (25.7-33.7); MCHC 33.5 g/dl (32.0-35.9); MEAN CELL VOLUME 97.9 fl (80-96); MEAN PLT VOLUME 10.1 fl (7.5-11.1); NEUT % 94.6 % (42.8-82.8); PLATELET COUNT 194 K/MM3 (134-434); RBC 3.71 M/mm3 (4.00-5.60); RDW 14.2 % (11.9-15.9); WHITE BLOOD COUNT 14.8 K/mm3 (4.0-10.0)
[2018-12-23] MEDS ORDERED: dilTIAZem HCL 50 MG/10 ML - 10 ML VIAL IVPB ONE (12:10)
[2018-12-23] MEDS ORDERED: DIGOXIN 0.5 MG/2 ML AMPUL IVPUSH ONE (12:16)
[2018-12-23] MEDS ORDERED: dilTIAZem HCL 125 MG/25 ML - 25 ML VIAL ONE (12:17)
[2018-12-23 12:18] LABS: ALBUMIN 2.9 g/dl (3.4-5.0); BILIRUBIN,TOTAL 0.5 mg/dL (0.2-1); BLOOD UREA NITROGEN 69.9 mg/dL (7-18); CALCIUM 9.3 mg/dL (8.5-10.1); CREATININE 4.6 mg/dL (0.55-1.3); MAGNESIUM 2.2 mg/dL (1.8-2.4); POTASSIUM 4.7 mmol/L (3.5-5.1); TOT PROT 7.7 g/dl (6.4-8.2)
[2018-12-23] MEDS ORDERED: DIGOXIN 0.5 MG/2 ML AMPUL ONE (12:21)
[2018-12-23 12:50] LABS: N-TERMINAL BNP 5815.3 pg/ml (5-450)
[2018-12-23 13:09] LABS: ANISOCYTOSIS 2+; MACROCYTOSIS 0; PLATELET ESTIMATE NORMAL
[2018-12-23] MEDS ORDERED: AMIODARONE HCL 150 MG/3 ML VIAL IVPUSH ONE (13:26)
[2018-12-23 13:34] LABS: INR 1.22 (0.83-1.09); PROTHROMBIN TIME (PATIENT) 14.4 SEC (9.7-13.0)
[2018-12-23 13:37] LABS: ACTIVATED PTT 28.1 SECONDS (25.2-36.5)
[2018-12-23] MEDS ORDERED: SODIUM CHLORIDE 1,000 ML IV STA (14:20)
[2018-12-23] MEDS ORDERED: AMIODARONE IN DEXTROSE,ISO-OSM 360 MG/200 ML BAG ONE (14:56)
[2018-12-23] MEDS ORDERED: AMIODARONE HCL 150 MG/3 ML VIAL ONE (14:56)
[2018-12-23] MEDS ORDERED: HEPARIN NA (PORCINE) 5,000 UNITS/ML 1ML VIAL ONE (15:08)
[2018-12-23] MEDS ORDERED: HEPARIN INFUSION - 25,000 UNITS/500 ML INFUS.BAG IVPB ONE (15:08)
[2018-12-23] MEDS: AMIODARONE IN DEXTROSE,ISO-OSM 360 MG/200 ML BAG IVPB SCH (15:20)
[2018-12-23] MEDS: HEPARIN - 25,000 UNIT in SODIUM CHLORIDE 495 ML IV SCH (15:20)
[2018-12-23 15:46] LABS: EPI CELLS 0 /HPF (0-5/HPF); HYALINE CASTS 1 /lpf (0-8); PH,URINE 5.5 (5.0-8.0); URINE APPEARANCE CLOUDY; URINE BACTERIA 878.1 /hpf (NEGATIVE); URINE BILIRUBIN NEGATIVE (NEGATIVE); URINE COLOR YELLOW; URINE GLUCOSE (UA) NEGATIVE (NEGATIVE); URINE KETONE NEGATIVE (NEGATIVE); URINE LEUK ESTERASE 3+ (NEGATIVE); URINE NITRITE NEGATIVE (NEGATIVE); URINE PROTEIN 1+ (NEGATIVE); URINE RBC 23 /hpf (0-4); URINE UROBILINOGEN 0.2 mg/dL (0.2-1.0); URINE WBC 105 /hpf (0-5)
[2018-12-23] MEDS ORDERED: PIPERACILLIN/TAZOB 3.375 GM 3.375 GM in DEXTROSE 5%-WATER - 50 ML IVPB ONE (15:55)
[2018-12-23] MEDS ORDERED: PIPERACILLIN/TAZOB 3.375 GM 3.375 GM/50 ML BAG IVPB ONE (16:48)
--- NOTE | 2018-12-23 17:18 | CONSULT ---
Consultation: CONSULT REQUEST: ICU HISTORY OF PRESENT ILLNESS: Patient is a poor historian due to mental status. Patient is an 88 yo M witha PMHx of HTN, hx TIA, dysphagia, PPM, BPH (off eliquis, scheduled for TURP), recent admission for UTI, presented to the ED from [facility] because of weakness, hypotension, and lethargy. In the ER patient was found in rapid a-fib in the 150s-170s and hypertensive. He was given Norvasc 5mg, metoprolol 50mg, ramipril at 8:30am which resulted in hypotension. Patient was then given 2 rounds of "low dose epi". Patent remained hypotensive s /p 2 L normal saline and tachycardic. He was then started on digoxin with no improvement in heart rate. Cardiology was called and plan was to start patient on amiodarone drip. Patient has been off eliquis for the last few days because of a planned TURP. Patient was d/c in october for a UTI and discharged with a nelson. Daughter says the nelson catheter has not been removed since discharge on 11/06. Patient "normal" at baseline, walks/talks, per Family. REVIEW OF SYSTEMS: unable to obtain PHYSICAL EXAMINATION Vital Signs - 24 hr 12/23/18 12/23/18 12/23/18 10:45 11:56 12:10 Temperature 97.6 F Pulse Rate 180 H Pulse Rate [ 180 H 156 H Apical] Respiratory 20 34 H 32 H Rate Blood Pressure 95/48 L Blood Pressure [Left Arm] Blood Pressure 98/48 L 99/65 [Right Arm] O2 Sat by Pulse 96 95 94 L Oximetry (%) 12/23/18 12/23/18 12/23/18 12:25 13:00 13:09 Temperature Pulse Rate Pulse Rate [ 159 H 166 H 160 H Apical] Respiratory 30 H 30 H Rate Blood Pressure Blood Pressure 177/155 H 94/54 L [Left Arm] Blood Pressure 89/49 L [Right Arm] O2 Sat by Pulse Oximetry (%) 12/23/18 16:54 Temperature 97.5 F L Pulse Rate Pulse Rate [ Apical] Respiratory Rate Blood Pressure Blood Pressure [Left Arm] Blood Pressure [Right Arm] O2 Sat by Pulse Oximetry (%) GENERAL: lethargic, altered, a/o x 1 HEAD: Normal with no signs of trauma. EYES: PERRL EARS, NOSE, THROAT: oropharynx clear without exudates. dry mucous membranes. NECK: supple without lymphadenopathy, JVD, or masses. LUNGS: decreased breah sounds HEART: irregular rhythm, tachy, +PPM ABDOMEN: distended abdomen, suprapubic tenderness. palpable bladder. +Nelson- bloody LOWER EXTREMITIES: 2+ pulses, No peripheral edema. Laboratory Results - last 24 hr 12/23/18 12/23/18 15:10 15:21 WBC RBC Hgb Hct MCV MCH MCHC RDW Plt Count MPV Absolute Neuts (auto) Neutrophils % Neutrophils % (Manual) Band Neutrophils % Lymphocytes % Lymphocytes % (Manual) Monocytes % Monocytes % (Manual) Eosinophils % Eosinophils % (Manual) Basophils % Basophils % (Manual) Myelocytes % (Man) Promyelocytes % (Man) Blast Cells % (Manual) Nucleated RBC % Metamyelocytes Hypochromia Platelet Estimate Polychromasia Poikilocytosis Basophilic Stippling Anisocytosis Microcytosis Macrocytosis Spherocytes [place] Cells PT with INR INR PTT (Actin FS) Sodium Potassium Chloride Carbon Dioxide Anion Gap BUN Creatinine Est GFR (CKD-EPI)AfAm Est GFR (CKD-EPI)NonAf Random Glucose Calcium Magnesium Total Bilirubin AST ALT Alkaline Phosphatase Creatine Kinase Creatine Kinase Index CK-MB (CK-2) Troponin I B-Natriuretic Peptide Total Protein Albumin TSH Urine Color Yellow Urine Appearance Cloudy Urine pH 5.5 Ur Specific Jamison 1.014 Urine Protein 1+ H Urine Glucose (UA) Negative Urine Ketones Negative Urine Blood 3+ H Urine Nitrite Negative Urine Bilirubin Negative Urine Urobilinogen 0.2 Ur Leukocyte Esterase 3+ H Urine WBC (Auto) 105 Urine RBC (Auto) 23 Urine Casts (Auto) 1 U Epithel Cells (Auto) 0 Urine Bacteria (Auto) 878.1 Ur Random Creatinine 138.0 Ur Random Sodium Ur Random Potassium Ur Random Chloride Blood Type Antibody Screen Active Medications Generic Name Dose Route Start Last Admin Trade Name Freq PRN Reason Stop Dose Admin Amiodarone HCl/Dextrose 360 mg in 200 mls @ 16.667 mls/hr 12/23/18 13:30 12/01 15:20 Nexterone 360 Mg/200 Ml Bag IVPB 16.667 mls/hr ASDIR SHEEBA Administration Protocol 0.5 MG/MIN Heparin Sodium (Porcine) 25, 500 mls @ 20 mls/hr 12/23/18 13:30 12/23/18 15: 20 000 unit/ Sodium Chloride IV 1,000 unit/hr TITR SHEEBA 20 mls/hr Administration Protocol 1,000 UNIT/HR ASSESSMENT/PLAN: #Neuro -Lethargic -monitor mental status -Patient on Keppra at home: changed to IV for now #CV -hypotension likely d/t Septic shock -s/p 2 L NS IV fluids -plan to place Central line -monitor CVP -maintain MAP >65 -begin pressors if needed. -Rapid A-fib- given 1x digoxin 0.25 -Amio drip started -Hold rate control due to hypotension -eliquis held -Heparin drip started -Echo ordered -Cardio consulted #ID -Septic Shock likely from UTI -positive u/a, leukocytosis w/ left shift, hypotenson -nelson not renewed since october -renew nelson -Start zosyn -ID consulted -follow bcx, ucx, lactic acid #Pulmonary -maintaining saturation on Nasal canula -o2 supplementation as needed #Renal -CARLOS likely 2/2 obstructive uropathy -Cr 4.6 (last admission in 02.14) -renew nelson -Kidney/bladder/abdominal US -FU urine studies, Fena -strict i/o's -Nephrology consulted # -abdomen distended, suprapubic tenderness, palpable bladder -patient with hx of severe BPH, scheduled TURP in a few days -Has not removed nelson since October. -renew nelson -kidney US, abdominal US -Urology consulted #Endocrine -hx of hypothyroidism -Levothyroxin changed from PO to IV for now. 50mcgs PO converted to 40mcgs IV. Put back on original oral dose when able to take PO. #dvt ppx -heparin drip DNR/DNI Dispo: We will continue to follow the patient. Thank you for this consultative opportunity. Critical care time spent in reviewing chart, evaluating patient and formulating plan - 40 minutes. Visit type - Emergency Visit Emergency Visit: Yes ED Registration Date: 12/23/18 Care time: The patient presented to the Emergency Department on the above date and was hospitalized for further evaluation of their emergent condition. - New Patient This patient is new to me today: Yes Date on this admission: 12/23/18 - Critical Care Critical Care patient: Yes Total Critical Care Time (in minutes): 40 Critical Care Statement: The care of this patient involved high complexity decision making to prevent further life threatening deterioration of the patient 's condition and/or to evaluate & treat vital organ system(s) failure or risk of failure. ATTENDING PHYSICIAN STATEMENT I saw and evaluated the patient. I reviewed the resident's note and discussed the case with the resident. I agree with the resident's findings and plan as documented. SUBJECTIVE: OBJECTIVE: ASSESSMENT AND PLAN:
[2018-12-23] MEDS ORDERED: NOREPINEPHRINE BITARTRATE 4 MG/4 ML ML IV ONE (19:12)
[2018-12-23] MEDS: NOREPINEPHRINE BITARTRATE 4,000 MCG in DEXTROSE 5%-WATER - 496 ML IV SCH ×2 (19:13→21:45)
--- NOTE | 2018-12-23 19:36 | HP ---
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 SSS)) Renal/: Yes: BPH, Other (obstructive uropathy) Psych: Yes: Anxiety - Smoking History Smoking history: Never smoked - Alcohol/Substance Use Hx Alcohol Use: No History of Substance Use: reports: None - Social History Usual Living Arrangement: Yes: Assisted Living ADL: Independent History of Recent Travel: No Home Medications - Allergies Allergies/Adverse Reactions: Allergies Allergy/AdvReac Type Severity Reaction Status Date / Time No Known Allergies Allergy Verified 10/29/18 09:24 - Home Medications Home Medications: Ambulatory Orders Acetaminophen 325 mg PO QID 12/23/18 Amlodipine Besylate [Norvasc -] 5 mg PO DAILY 12/23/18 Apixaban [Eliquis] 2.5 mg PO DAILY 12/23/18 Cholecalciferol (Vitamin D3) [Vitamin D] 2,000 unit PO DAILY 12/23/18 Finasteride 5 mg PO DAILY 12/23/18 Levetiracetam 500 mg PO BID 12/23/18 Levothyroxine [Synthroid -] 50 mcg PO DAILY 12/23/18 Metoprolol Succinate 50 mg PO DAILY 12/23/18 Multivitamins [Tab-A-Vit -] 1 tab PO DAILY 12/23/18 Ramipril [Altace] 2.5 mg PO DAILY 12/23/18 Tamsulosin HCl [Flomax] 0.4 mg PO DAILY 12/23/18 Review of Systems Unable to obtain ROS, reason: clinial condition Findings/Remarks: patient transferred to ER lethargic and hypotensive - Review of Systems Constitutional: reports: Lethargy Eyes: reports: No Symptoms HENT: reports: No Symptoms Neck: reports: No Symptoms Cardiovascular: reports: Shortness of Breath Respiratory: reports: SOB Genitourinary: reports: Other (obstructive uropathy) Physical Examination Vital Signs: Vital Signs Temperature 98.0 F 12/23/18 19:27 Pulse Rate 86 12/23/18 19:27 Respiratory Rate 30 H 12/23/18 19:27 Blood Pressure 102/43 L 12/23/18 19:27 O2 Sat by Pulse Oximetry (%) 96 12/23/18 19:27 Labs: CBC, BMP 12/23/18 11:15 12/23/18 10:45 Problem List - Problems (1) Acute renal failure Code(s): N17.9 - ACUTE KIDNEY FAILURE, UNSPECIFIED Qualifiers: Acute renal failure type: unspecified Qualified Code(s): N17.9 - Acute kidney failure, unspecified (2) Atrial fibrillation with RVR Code(s): I48.91 - UNSPECIFIED ATRIAL FIBRILLATION (3) BPH (benign prostatic hyperplasia) Code(s): N40.0 - BENIGN PROSTATIC HYPERPLASIA WITHOUT LOWER URINRY TRACT SYMP (4) H/O: CVA (cerebrovascular accident) Code(s): Z86.73 - PRSNL HX OF TIA (TIA), AND CEREB INFRC W/O RESID DEFICITS (5) Hypertension Code(s): I10 - ESSENTIAL (PRIMARY) HYPERTENSION (6) Hypothyroid Code(s): E03.9 - HYPOTHYROIDISM, UNSPECIFIED (7) Urinary retention due to benign prostatic hyperplasia Code(s): N40.1 - BENIGN PROSTATIC HYPERPLASIA WITH LOWER URINARY TRACT SYMP; R33.8 - OTHER RETENTION OF URINE
--- NOTE | 2018-12-23 20:36 | CONS ---
DATE OF CONSULTATION: 12/23/2018 The patient is an 88-year-old male first seen in the detention last month with urinary retention. Patient was on anticoagulation for atrial fibrillation. He was scheduled to undergo a TURP on December 25, 2018, and he was to be off his anticoagulation for 5 days prior to the TURP. He presented today to the emergency room with weakness, tachycardia, and hypotension. He does have history of high blood pressure as well as a CVA in the past. He has had recurrent TIAs. He complains of dysphagia. He also had history of prostatism with frequency, urgency, terminal dribbling, and feelings of incomplete bladder emptying. In the detention, his blood pressure was 178/33 with a heart rate of 130. They gave him p.o. Norvasc as well as metoprolol and ramipril at 8:30 a.m. The patient then had a blood pressure of 197/54 and a heart rate of 170. The patient does have history of a sick sinus syndrome with atrial fibrillation. He also has history of hypothyroidism as well as seizure disorder. He denies any allergies. He denies ethanolism or tobacco. He is on multiple medication including acetaminophen, Norvasc, Eliquis, vitamin D, Proscar, levothyroxine, metoprolol, , and Flomax. His temperature in the emergency room was 97.6, pulse 159, respirations 30, blood pressure 89/49, pulse oximetry 94. He appeared to be well nourished and well dressed, in no apparent distress. An ultrasound performed in the emergency room, which included the abdomen and flanks, revealed a distended bladder with greater than 970 mL of fluid. There was also bilateral moderate hydroureteronephrosis. A CBC revealed a white count of 14.8, hemoglobin 12.2, hematocrit 36.3, platelets 194. The patient's BUN was 69.9 and creatinine 46.6. Random glucose was 148. The patient's liver enzymes were within normal limits. The patient is presently still in the emergency room. His latest blood pressure is 183/53. He has received 1 L of normal saline. He continues to be tachycardic at a rate between 130 and 150. Impression at present is acute urinary retention, acute renal failure, atrial fibrillation with a rapid ventricular response. Will continue to monitor patient and when patient is medically cleared, will attempt to perform a prostate reductive procedure. In the meantime, will control his cardiovascular status. CRISTOPHER PACHECO M.D. [id number]
--- NOTE | 2018-12-23 21:37 | PROC ---
Central Line Insertion Indication: Vasopressor Risks and Benefits Explained: Yes Consent on Chart: Yes Central Line: Triple Lumen Catheter Anesthesia: 1% Lidocaine Sterile Technique: Yes Ultrasound Guided Assistance: Yes Position: Right Internal Jugular Post Insertion: Yes: Bilateral Breath Sounds, Bilateral Chest Expansion, Chest X-Ray Ordered Sterile Dressing Applied: Yes
[2018-12-23] MEDS ORDERED: levETIRAcetam 500 MG TABLET (FP) PO SCH (22:00)
[2018-12-23] MEDS: levETIRAcetam 500 MG/5 ML INJECTION VIAL IVPB SCH (22:54)
[2018-12-23] MEDS ORDERED: PIPERACILLIN/TAZOBACTAM 2.25 GM VIAL IVPB ONE (23:10)
[2018-12-23] MEDS ORDERED: DEXTROSE 5%-WATER - 50 ML IVPB ONE (23:10)
[2018-12-23] MEDS: SODIUM CHLORIDE 1,000 ML IV SCH (23:13)
[2018-12-23] MEDS ORDERED: PIPERACILLIN/TAZOB 2.25 GM 2.25 GM in DEXTROSE 5%-WATER - 50 ML IVPB SCH (23:30)
[2018-12-24] MEDS: PIPERACILLIN/TAZOB 2.25 GM 2.25 GM in DEXTROSE 5%-WATER - 50 ML IVPB SCH ×3 (00:12→08:45)
[2018-12-24] MEDS ORDERED: PIPERACILLIN/TAZOBACTAM 2.25 GM VIAL IVPB ONE ×2 (02:20→08:27)
[2018-12-24] MEDS ORDERED: DEXTROSE 5%-WATER - 50 ML IVPB ONE ×3 (02:20→12:23)
[2018-12-24] MEDS: NOREPINEPHRINE BITARTRATE 8,000 MCG in DEXTROSE 5%-WATER - 492 ML IV SCH (02:41)
[2018-12-24 07:05] LABS: BASO % 0.1 % (0-2.0); HEMATOCRIT 29.4 % (35.4-49); LYMPH % 4.7 % (8-40); MCH 32.7 pg (25.7-33.7); MEAN CELL VOLUME 96.3 fl (80-96); MEAN PLT VOLUME 10.2 fl (7.5-11.1); NEUT % 91.2 % (42.8-82.8); PLATELET COUNT 148 K/MM3 (134-434); RBC 3.05 M/mm3 (4.00-5.60); RDW 13.8 % (11.9-15.9)
[2018-12-24 07:40] LABS: ALBUMIN 2.1 g/dl (3.4-5.0); BILIRUBIN,TOTAL 0.5 mg/dL (0.2-1); BLOOD UREA NITROGEN 69.2 mg/dL (7-18); CALCIUM 8.2 mg/dL (8.5-10.1); CREATININE 3.6 mg/dL (0.55-1.3); POTASSIUM 3.4 mmol/L (3.5-5.1)
[2018-12-24] MEDS ORDERED: PT OWN MED DRAWER 7, Y5N ONE (09:33)
[2018-12-24] MEDS: HEPARIN NA (PORCINE) 5,000 UNITS/ML 1ML VIAL IVPUSH PRN ×2 (09:35→16:46)
[2018-12-24] MEDS: levETIRAcetam 500 MG/5 ML INJECTION VIAL IVPB SCH ×2 (09:36→21:35)
[2018-12-24 09:41] LABS: PLATELET ESTIMATE DECREASED
--- NOTE | 2018-12-24 09:59 | CON.ID ---
Consult Reason for Consultation:: UTI - History of Present Illness Chief Complaint: weakness, hypotension History of Present Illness: Mr. Hogan is an 88y/o male with BPH (was scheduled for TURP on 12/25), klebsiella positive UTI treated with Ceftriaxone and Keflex (10/2018), urinary retention (urinary catheter placed), PPM (?SSS/a-fib), and CVA who presents from [facility] with hypotension post-medication administration yesterday. He was hypertensive at 178/133 and HR 130 and was given medication then was hypotensive and presented to ED. He was reported to be weak and lethargic. He has had recent falls at [place] per chart. He currently denies chills, fever, nausea , abdominal pain, or penile pain. 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 Cardio/Vascular: Yes: HTN, Other (PPM insertion, possible SSS or a-fib) Renal/: Yes: BPH, UTI, Other (obstructive uropathy) Psych: Yes: Anxiety Endocrine: Yes: Hypothyroidism - Past Surgical History Past Surgical History: Yes: Permanent Pacemaker - Alcohol/Substance Use Hx Alcohol Use: No History of Substance Use: reports: None - Smoking History Smoking history: Never smoked - Social History Usual Living Arrangement: Assisted ADL: Independent History of Recent Travel: No Home Medications - Allergies Allergies/Adverse Reactions: Allergies Allergy/AdvReac Type Severity Reaction Status Date / Time No Known Allergies Allergy Verified 10/29/18 09:24 - Home Medications Home Medications: Ambulatory Orders Acetaminophen 325 mg PO QID 12/23/18 Amlodipine Besylate [Norvasc -] 5 mg PO DAILY 12/23/18 Apixaban [Eliquis] 2.5 mg PO DAILY 12/23/18 Cholecalciferol (Vitamin D3) [Vitamin D] 2,000 unit PO DAILY 12/23/18 Finasteride 5 mg PO DAILY 12/23/18 Levetiracetam 500 mg PO BID 12/23/18 Levothyroxine [Synthroid -] 50 mcg PO DAILY 12/23/18 Metoprolol Succinate 50 mg PO DAILY 12/23/18 Multivitamins [Tab-A-Vit -] 1 tab PO DAILY 12/23/18 Ramipril [Altace] 2.5 mg PO DAILY 12/23/18 Tamsulosin HCl [Flomax] 0.4 mg PO DAILY 12/23/18 Review of Systems - Review of Systems Constitutional: denies: Chills, Fever HENT: denies: Difficult Swallowing Cardiovascular: denies: Chest Pain, Palpitations Respiratory: denies: Cough Gastrointestinal: denies: Abdominal Pain, Nausea Genitourinary: denies: Burning Integumentary: denies: Rash Neurological: denies: Syncope Physical Exam Vital Signs: Vital Signs Temperature 98.8 F 12/24/18 03:00 Pulse Rate 87 12/24/18 09:00 Respiratory Rate 20 12/24/18 09:00 Blood Pressure 128/48 L 12/24/18 09:00 O2 Sat by Pulse Oximetry (%) 98 12/23/18 22:00 Constitutional: Yes: No Distress Eyes: Yes: Conjunctiva Clear, EOM Intact HENT: Yes: Atraumatic, Normocephalic Neck: Yes: Supple. No: Lymphadenopathy Cardiovascular: Yes: Regular Rate and Rhythm. No: Murmur Respiratory: Yes: CTA Bilaterally, On Nasal O2 Gastrointestinal: Yes: Distention, Hyperactive Bowel Sounds Renal/: Yes: Perez Present (sediment in tube; dried blood at meatus) Edema: LLE: Trace, RLE: Trace Integumentary: Yes: Pressure Ulcer (erythematous sacral area; right IJ present no induration or erythema; PPM no induration or erythema) Neurological: Yes: Alert, Oriented, Lethargy Labs: CBC, BMP 12/24/18 05:30 12/24/18 05:30 Imaging - Results Chest X-ray: Report Reviewed (bilateral pleural effusions can't exlude LLL infiltrate), Image Reviewed Ultrasound: Report Reviewed (4.8cm masslike density in bladder (blood clot vs neoplasm), no hydronephrosis, bilateral simple renal cysts, 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 Hogan is an 88y/o male with BPH (was scheduled for TURP on 12/25), klebsiella positive UTI treated with Ceftriaxone and Keflex (10/2018), urinary retention (urinary catheter placed), CKD, PPM (?SSS/a-fib), and CVA who presents from [facility] with hypotension post-medication administration. #UTI #bacteremia #CARLOS, likely pre-renal Pt has hx of urinary obstruction and klebsiella positive UTI. He was scheduled for TURP. Pt presented with a-fib with RVR and hypotension with improvement in pressure and HR. Leukocytosis present. He has been afebrile. UA positive for leuk esterase, blood, WBCs, and bacteria. Initial blood cultures are growing Gram + cocci in clusters but may be from 1 site. -urine cx pending -d/c Zosyn -ceftriaxone 1g daily -vancomycin 1g x1 -vanc level in the morning, redose if <15 -echo -repeat blood cultures from 2 separate sites
[2018-12-24] MEDS ORDERED: LEVOTHYROXINE NA 50 MCG TABLET (FP) PO SCH (10:00)
[2018-12-24] MEDS ORDERED: LEVOTHYROXINE SODIUM 100 MCG VIAL IVPUSH SCH (10:00)
--- NOTE | 2018-12-24 10:14 | EKG ---
Test Reason : Blood Pressure : / mmHG Vent. Rate : 169 BPM Atrial Rate : 153 BPM P-R Int : 000 ms QRS Dur : 080 ms QT Int : 272 ms P-R-T Axes : 000 028 090 degrees QTc Int : 456 ms ATRIAL FIBRILLATION WITH RAPID VENTRICULAR RESPONSE NONSPECIFIC ST AND T WAVE ABNORMALITY ABNORMAL ECG WHEN COMPARED WITH ECG OF 29-OCT-2018 17:03, ATRIAL FIBRILLATION HAS REPLACED SINUS RHYTHM VENT. RATE HAS INCREASED BY 75 BPM Confirmed by CHRISTIANO SAHU, JONEL ([id number]) on 12/24/2018 10:14:01 AM Referred By: Confirmed By:JONEL ALVARADO MD
--- NOTE | 2018-12-24 10:23 | PN ---
Progress Note (short form) - Note Progress Note: UROLOGY NOTE. PT. WITH H/O BPH WITH LUTS, HAS BEEN ON MONTEJO DRAINAGE FOR PAST 14 DAYS. PT. IS SCHEDUALED FOR A TURP/TUVP FOR Monday12/25/18. BUN/CREAT.=69.2 /3.6,WBC=14,000.PLAN-TUVP IN AM IF MED. OK.
--- NOTE | 2018-12-24 10:55 | CON.CARD ---
Consult Consult Specialty:: cardio - History of Present Illness Chief Complaint: rapid afib, hypotension History of Present Illness: 88 M here with hypotension, lethargy (sent from [place]). s/p recent admission for UTI 11/01--discharged with nelson noted in [place] to exhibit weakness, hypotension, and lethargy. In the ER patient was found in rapid a-fib in the 150s-170s and hypertensive. He was given Norvasc 5mg, metoprolol 50mg, ramipril at 8:30am which resulted in hypotension. Patient was then given 2 rounds of "low dose epi". Patent remained hypotensive s /p 2 L normal saline and tachycardic. He was then started on digoxin with no improvement in heart rate. Amio gtt started. Patient has been off eliquis for the last few days because of a planned TURP. UFH gtt started here. s/p PM generator change 10/01--has not been back to see me since presently: lethargic, opens eyes weakly. 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 SSS)) Renal/: Yes: BPH, Other (obstructive uropathy) Psych: Yes: Anxiety - Alcohol/Substance Use Hx Alcohol Use: No History of Substance Use: reports: None - Smoking History Smoking history: Never smoked - Social History ADL: Independent History of Recent Travel: No Home Medications - Allergies Allergies/Adverse Reactions: Allergies Allergy/AdvReac Type Severity Reaction Status Date / Time No Known Allergies Allergy Verified 10/29/18 09:24 - Home Medications Home Medications: Ambulatory Orders Acetaminophen 325 mg PO QID 12/23/18 Amlodipine Besylate [Norvasc -] 5 mg PO DAILY 12/23/18 Apixaban [Eliquis] 2.5 mg PO DAILY 12/23/18 Cholecalciferol (Vitamin D3) [Vitamin D] 2,000 unit PO DAILY 12/23/18 Finasteride 5 mg PO DAILY 12/23/18 Levetiracetam 500 mg PO BID 12/23/18 Levothyroxine [Synthroid -] 50 mcg PO DAILY 12/23/18 Metoprolol Succinate 50 mg PO DAILY 12/23/18 Multivitamins [Tab-A-Vit -] 1 tab PO DAILY 12/23/18 Ramipril [Altace] 2.5 mg PO DAILY 12/23/18 Tamsulosin HCl [Flomax] 0.4 mg PO DAILY 12/23/18 Family Medical History Family History: Denies (no known cmp) Review of Systems Unable to obtain ROS, reason: not verbal presently Vital Signs: Vital Signs Temperature 98.8 F 12/24/18 03:00 Pulse Rate 87 12/24/18 09:00 Respiratory Rate 20 12/24/18 09:00 Blood Pressure 128/48 L 12/24/18 09:00 O2 Sat by Pulse Oximetry (%) 97 12/24/18 09:00 Constitutional: Yes: Well Nourished, No Distress Eyes: No: Sclera Icterus HENT: No: Nasal Congestion Neck: No: Decreased ROM Respiratory: Yes: CTA Bilaterally (not deep breaths). No: Accessory Muscle Use Gastrointestinal: Yes: Normal Bowel Sounds. No: Distention, Hepatomegaly, Palpable Mass, Tenderness Cardiovascular: Yes: Regular Rate and Rhythm JVD: No Carotid Bruit: No PMI: Non-Displaced Heart Sounds: Yes: S1, S2. No: Gallop Murmur: No: Systolic Murmur, Diastolic Murmur Musculoskeletal: Yes: Other (No kyphosis) Extremities: No: Cool, Cyanosis Edema: No Peripheral Pulses: 2+ Left Carotid, 2+ Right Carotid, 2+ Left Doralis Pedis, 2+ Right Dorsalis Pedis Integumentary: No: Jaundice Neurological: Yes: Lethargy. No: Seizure Psychiatric: No: Agitated - Other Data Labs, Other Data: CBC, BMP 12/24/18 05:30 12/24/18 05:30 INR, PTT INR 1.22 (0.83-1.09) H 12/23/18 12:55 Troponin, BNP 12/23/18 10:45 Troponin I 0.03 B-Natriuretic Peptide 5815.3 H Troponin, BNP 12/23/18 10:45 Troponin I 0.03 B-Natriuretic Peptide 5815.3 H Assessment/Plan ECG: rapid AF, mild NSST-Ts likely rate related CXR: new pleural effusions--reviewed, ? small effusions--resolved on CXR #2 Echo 07/01: TDS. nl LVSF, probably normal RV. mild AI. mild-mod MR/TR Renal/bladder sono: no hydro, ? 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 clot, vs other tele: NSR septic shock: -lactate elevated initiatlly--cont IVF -BCX gram positive cocci clusters--await ID -pt is s/p PM generator change at [facility] (dr carbajal) on 10/11/18--once cultured organisms identified, will d/w dr carbajal ZENY (here vs there) -cont norepi for now, for MAP >60--if rapid AF on amio, would change to phenylephrine or vasopressing to minimize chronotropic agonist effect CARLOS, urinary retention with indwelling nelson: -plan per crit care, renal/ PAF, rapid HR: -hypotension limiting AVN blockers -cont amio gtt for now -cont UFH gtt (hold eliquis in case of need for invasive procedures) PPM, s/p generator change recently (Dr. Martin, [facility]): -as above est time in data review, pt exam, formulating mgmt plan of potentially life- threatening problems = 39 min
[2018-12-24] MEDS ORDERED: VANCOMYCIN 1 GRAM (PRE-DOCKED) 1,000 MG/250 ML BAG IVPB ONE (11:00)
[2018-12-24] MEDS ORDERED: SODIUM CHLORIDE 0.9% 1000 ML INFUS.BAG IV ONE (11:01)
--- NOTE | 2018-12-24 11:32 | CONSULT ---
Consult Consult Specialty:: Nephrology Reason for Consultation:: CARLOS - History of Present Illness Chief Complaint: sent in for weakness and hypotension History of Present Illness: Pt is an 88 year old male with pmhx of htn, tia, dysphagia, ppm, bph, indwelling nelson and uti who was sent in from the [place] for weakness and lethargy. He was found to be in rapid a-fib with a pulse in the 150s. He was initially hypertensive. He wa treated with amlodipine, metoprolol and ramipril. He later developed hypotension. I was called to evaluate him for CARLOS. His renal function has improved from yesterday. He is now on fluids. He was scheduled for turp and has been off of eliquis. He is awake but not able to contribute much to history. 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 Cardio/Vascular: Yes: HTN, Other (PPM insertion, possible SSS or a-fib) Renal/: Yes: BPH, UTI, Other (obstructive uropathy) Psych: Yes: Anxiety Endocrine: Yes: Hypothyroidism - Past Surgical History Past Surgical History: Yes: Permanent Pacemaker - Alcohol/Substance Use Hx Alcohol Use: No History of Substance Use: reports: None - Smoking History Smoking history: Never smoked - Social History Usual Living Arrangement: Snf ADL: Independent History of Recent Travel: No Home Medications - Allergies Allergies/Adverse Reactions: Allergies Allergy/AdvReac Type Severity Reaction Status Date / Time No Known Allergies Allergy Verified 10/29/18 09:24 - Home Medications Home Medications: Ambulatory Orders Acetaminophen 325 mg PO QID 12/23/18 Amlodipine Besylate [Norvasc -] 5 mg PO DAILY 12/23/18 Apixaban [Eliquis] 2.5 mg PO DAILY 12/23/18 Cholecalciferol (Vitamin D3) [Vitamin D] 2,000 unit PO DAILY 12/23/18 Finasteride 5 mg PO DAILY 12/23/18 Levetiracetam 500 mg PO BID 12/23/18 Levothyroxine [Synthroid -] 50 mcg PO DAILY 12/23/18 Metoprolol Succinate 50 mg PO DAILY 12/23/18 Multivitamins [Tab-A-Vit -] 1 tab PO DAILY 12/23/18 Ramipril [Altace] 2.5 mg PO DAILY 12/23/18 Tamsulosin HCl [Flomax] 0.4 mg PO DAILY 12/23/18 Family Medical History Family History: Denies Review of Systems Unable to obtain ROS, reason: poor historian - Review of Systems Constitutional: reports: No Symptoms Eyes: reports: No Symptoms HENT: reports: No Symptoms Cardiovascular: reports: No Symptoms Respiratory: reports: No Symptoms Gastrointestinal: reports: No Symptoms Genitourinary: reports: Other (nelson) Musculoskeletal: reports: No Symptoms Integumentary: reports: No Symptoms Neurological: reports: No Symptoms Endocrine: reports: No Symptoms Hematology/Lymphatic: reports: No Symptoms Psychiatric: reports: No Symptoms Physical Exam Vital Signs: Vital Signs Temperature 98.8 F 12/24/18 03:00 Pulse Rate 87 12/24/18 09:00 Respiratory Rate 20 12/24/18 09:00 Blood Pressure 128/48 L 12/24/18 09:00 O2 Sat by Pulse Oximetry (%) 97 12/24/18 09:00 Constitutional: Yes: Calm Eyes: Yes: Conjunctiva Clear HENT: Yes: Atraumatic Neck: Yes: Supple Cardiovascular: Yes: Pulse Irregular, S1, S2 Respiratory: Yes: On Nasal O2 Gastrointestinal: Yes: Soft Renal/: Yes: Nelson Present Musculoskeletal: Yes: Muscle Weakness Edema: Yes Edema: LLE: Trace, RLE: Trace Neurological: Yes: Confusion Labs: CBC, BMP 12/24/18 05:30 12/24/18 05:30 Laboratory Tests 11/04/18 11/05/18 12/23/18 06:45 06:50 10:45 WBC Hgb Creatinine 1.3 1.2 4.6 H Urine Protein Urine Blood Ur Leukocyte Esterase 12/23/18 12/23/18 12/24/18 11:15 15:21 05:30 WBC 14.8 H 14.0 H Hgb 10.0 L Creatinine Urine Protein 1+ H Urine Blood 3+ H Ur Leukocyte Esterase 3+ H 12/24/18 05:30 WBC Hgb Creatinine 3.6 H Urine Protein Urine Blood Ur Leukocyte Esterase Imaging - Results Chest X-ray: Report Reviewed Problem List - Problems (1) Acute renal failure Code(s): N17.9 - ACUTE KIDNEY FAILURE, UNSPECIFIED Qualifiers: Acute renal failure type: unspecified Qualified Code(s): N17.9 - Acute kidney failure, unspecified (2) Atrial fibrillation with RVR Code(s): I48.91 - UNSPECIFIED ATRIAL FIBRILLATION Assessment/Plan Current Medications Generic Name Dose Route Start Last Admin Trade Name Freq PRN Reason Stop Dose Admin Heparin Sodium (Porcine) 5,000 unit 12/24/18 08:34 12/24/18 09:35 Heparin - IVPUSH 5,000 unit PRN PRN Administration APTT (SECONDS) <40 Heparin Sodium (Porcine) 1,000 unit 12/24/18 08:34 Heparin - IVPUSH PRN PRN APTT (SECONDS) 40-49 Amiodarone HCl/Dextrose 360 mg in 200 mls @ 16.667 mls/hr 12/23/18 13:30 12/01 15:20 Nexterone 360 Mg/200 Ml Bag IVPB 16.667 mls/hr ASDIR SHEEBA Administration Protocol 0.5 MG/MIN Heparin Sodium (Porcine) 25, 500 mls @ 20 mls/hr 12/23/18 13:30 12/24/18 08: 34 000 unit/ Sodium Chloride IV 1,150 unit/hr TITR SHEEBA 23 mls/hr Titration Protocol 1,000 UNIT/HR Sodium Chloride 1,000 mls @ 42 mls/hr 12/23/18 22:45 12/23/18 23:13 Normal Saline - IV 42 mls/hr ASDIR SHEEBA Administration Norepinephrine Bitartrate 8, 500 mls @ 18.75 mls/hr 12/24/18 01:45 12/24/18 02:43 000 mcg/ Dextrose IV 15 mcg/min TITR SHEEBA 56.25 mls/hr Titration Protocol 5 MCG/MIN Vancomycin HCl 1,000 mg in 250 mls @ 166.667 mls/hr 12/24/18 11:00 12/24/18 11:09 Vancomycin (Pre-Docked) IVPB 12/24/18 12:29 166.667 mls/hr ONCE ONE Administration Protocol Ceftriaxone Sodium 1 gm/ 50 mls @ 200 mls/hr 12/24/18 11:15 Dextrose IVPB DAILY SHEEBA Protocol Levetiracetam 500 mg 12/23/18 22:00 12/24/18 09:36 Keppra Injection - IVPB 500 mg BID SHEEBA Administration Levothyroxine Sodium 40 mcg 12/24/18 10:00 12/24/18 11:09 Synthroid Injection - IVPUSH 40 mcg DAILY SHEEBA Administration Microbiology 12/23/18 12:55 Blood - Peripheral Venous Blood Culture - Preliminary Pending Organism 12/23/18 12:55 Blood - Peripheral Venous Blood Culture - Preliminary Pending Organism Impression 1. CARLOS 2. rapid a-fib 3. hypotension 4. sepsis 5. bacteremia 6. hypothyroidism 7. 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
[2018-12-24] MEDS ORDERED: POTASSIUM CHLORIDE TABS 20 MEQ TABLET.ER (FP) PO ONE (11:36)
--- NOTE | 2018-12-24 11:36 | PN ---
Physical Exam: SUBJECTIVE: Patient seen and examined this morning. He denies any pain or concerns. States that he is thirsty. Denies abdominal pain. Spoke with family regarding care today. OBJECTIVE: Vital Signs Period Temp Pulse Resp BP Sys/Currie Pulse Ox Last 24 Hr 97.4 F-98.8 F 72-180 20-36 89-177/43-155 94-98 GENERAL: AAOx2 (self and place), NAD HEAD: Normal with no signs of trauma. EYES: PERRL, EOMI, no scleral icterus ENT: dry mucous membranes, poor oral dentition. NECK: Trachea midline, full range of motion, supple. LUNGS: decreased breath sounds at bases. no wheezes, no crackles, no accessory muscle use. HEART: Regular rate and rhythm, S1, S2 without murmur, rub or gallop. ABDOMEN: Soft, nontender, nondistended, normoactive bowel sounds, no guarding, no rebound EXTREMITIES: trace edema of bilateral lower extremities. 2+ pulses, warm, well- perfused Laboratory Results - last 24 hr 12/23/18 12/23/18 12/23/18 10:45 10:45 11:15 WBC RBC Hgb Hct MCV MCH MCHC RDW Plt Count MPV Absolute Neuts (auto) Neutrophils % Neutrophils % (Manual) Band Neutrophils % Lymphocytes % Lymphocytes % (Manual) Monocytes % Monocytes % (Manual) Eosinophils % Eosinophils % (Manual) Basophils % Basophils % (Manual) Myelocytes % (Man) Promyelocytes % (Man) Blast Cells % (Manual) Nucleated RBC % Metamyelocytes Hypochromia Dohle Bodies Platelet Estimate Polychromasia Poikilocytosis Basophilic Stippling Anisocytosis Microcytosis Macrocytosis Spherocytes Bow Cells PT with INR Cancelled INR Cancelled PTT (Actin FS) Cancelled Sodium 133 L Potassium 4.7 Chloride 104 Carbon Dioxide 16 L Anion Gap 13 BUN 69.9 H Creatinine 4.6 H Est GFR (CKD-EPI)AfAm 12.17 Est GFR (CKD-EPI)NonAf 10.50 Random Glucose 148 H Lactic Acid Calcium 9.3 Phosphorus Magnesium 2.2 Total Bilirubin 0.5 AST 35 ALT 17 Alkaline Phosphatase 105 Creatine Kinase 677 H Creatine Kinase Index 0.5 CK-MB (CK-2) 3.8 H Troponin I 0.03 B-Natriuretic Peptide 5815.3 H Total Protein 7.7 Albumin 2.9 L TSH 0.37 D Urine Color Urine Appearance Urine pH Ur Specific [place] Urine Protein Urine Glucose (UA) Urine Ketones Urine Blood Urine Nitrite Urine Bilirubin Urine Urobilinogen Ur Leukocyte Esterase Urine WBC (Auto) Urine RBC (Auto) Urine Casts (Auto) U Epithel Cells (Auto) Urine Bacteria (Auto) Ur Random Creatinine Ur Random Sodium Ur Random Potassium Ur Random Chloride Blood Type Antibody Screen 12/23/18 12/23/18 12/23/18 11:15 11:15 12:05 WBC 14.8 H RBC 3.71 L Hgb 12.2 Hct 36.3 D MCV 97.9 H MCH 32.8 MCHC 33.5 RDW 14.2 Plt Count 194 MPV 10.1 D Absolute Neuts (auto) 14.0 H Neutrophils % 94.6 H D Neutrophils % (Manual) 66.7 D Band Neutrophils % 24.5 Lymphocytes % 2.2 L D Lymphocytes % (Manual) 2.9 L D Monocytes % 3.0 L Monocytes % (Manual) 4 Eosinophils % 0.0 D Eosinophils % (Manual) 0.0 Basophils % 0.2 Basophils % (Manual) 0.0 Myelocytes % (Man) 0 Promyelocytes % (Man) 0 Blast Cells % (Manual) 0 Nucleated RBC % 0 Metamyelocytes 2 D Hypochromia 0 Dohle Bodies Platelet Estimate Normal Polychromasia 1+ Poikilocytosis 1+ Basophilic Stippling 1+ Anisocytosis 2+ Microcytosis 2+ Macrocytosis 0 Spherocytes 1+ Charley Cells 1+ PT with INR INR PTT (Actin FS) Sodium Potassium Chloride Carbon Dioxide Anion Gap BUN Creatinine Est GFR (CKD-EPI)AfAm Est GFR (CKD-EPI)NonAf Random Glucose Lactic Acid Calcium Phosphorus Magnesium Total Bilirubin AST ALT Alkaline Phosphatase Creatine Kinase Creatine Kinase Index CK-MB (CK-2) Troponin I B-Natriuretic Peptide Total Protein Albumin TSH Urine Color Urine Appearance Urine pH Ur Specific [place] Urine Protein Urine Glucose (UA) Urine Ketones Urine Blood Urine Nitrite Urine Bilirubin Urine Urobilinogen Ur Leukocyte Esterase Urine WBC (Auto) Urine RBC (Auto) Urine Casts (Auto) U Epithel Cells (Auto) Urine Bacteria (Auto) Ur Random Creatinine Ur Random Sodium Ur Random Potassium Ur Random Chloride Blood Type AB POSITIVE AB POSITIVE Antibody Screen No Result Required. 12/23/18 12/23/18 12/23/18 12:05 12:55 15:10 WBC RBC Hgb Hct MCV MCH MCHC RDW Plt Count MPV Absolute Neuts (auto) Neutrophils % Neutrophils % (Manual) Band Neutrophils % Lymphocytes % Lymphocytes % (Manual) Monocytes % Monocytes % (Manual) Eosinophils % Eosinophils % (Manual) Basophils % Basophils % (Manual) Myelocytes % (Man) Promyelocytes % (Man) Blast Cells % (Manual) Nucleated RBC % Metamyelocytes Hypochromia Dohle Bodies Platelet Estimate Polychromasia Poikilocytosis Basophilic Stippling Anisocytosis Microcytosis Macrocytosis Spherocytes Charley Cells PT with INR 14.40 H INR 1.22 H PTT (Actin FS) 28.1 Sodium Potassium Chloride Carbon Dioxide Anion Gap BUN Creatinine Est GFR (CKD-EPI)AfAm Est GFR (CKD-EPI)NonAf Random Glucose Lactic Acid Calcium Phosphorus Magnesium Total Bilirubin AST ALT Alkaline Phosphatase Creatine Kinase Creatine Kinase Index CK-MB (CK-2) Troponin I B-Natriuretic Peptide Total Protein Albumin TSH Urine Color Urine Appearance Urine pH Ur Specific [place] Urine Protein Urine Glucose (UA) Urine Ketones Urine Blood Urine Nitrite Urine Bilirubin Urine Urobilinogen Ur Leukocyte Esterase Urine WBC (Auto) Urine RBC (Auto) Urine Casts (Auto) U Epithel Cells (Auto) Urine Bacteria (Auto) Ur Random Creatinine Ur Random Sodium 55 Ur Random Potassium 38.0 Ur Random Chloride 58 L Blood Type Antibody Screen Negative 12/23/18 12/23/18 12/23/18 15:10 15:21 22:20 WBC RBC Hgb Hct MCV MCH MCHC RDW Plt Count MPV Absolute Neuts (auto) Neutrophils % Neutrophils % (Manual) Band Neutrophils % Lymphocytes % Lymphocytes % (Manual) Monocytes % Monocytes % (Manual) Eosinophils % Eosinophils % (Manual) Basophils % Basophils % (Manual) Myelocytes % (Man) Promyelocytes % (Man) Blast Cells % (Manual) Nucleated RBC % Metamyelocytes Hypochromia Dohle Bodies Platelet Estimate Polychromasia Poikilocytosis Basophilic Stippling Anisocytosis Microcytosis Macrocytosis Spherocytes Charley Cells PT with INR INR PTT (Actin FS) Sodium Potassium Chloride Carbon Dioxide Anion Gap BUN Creatinine Est GFR (CKD-EPI)AfAm Est GFR (CKD-EPI)NonAf Random Glucose Lactic Acid 2.1 H Calcium Phosphorus Magnesium Total Bilirubin AST ALT Alkaline Phosphatase Creatine Kinase Creatine Kinase Index CK-MB (CK-2) Troponin I B-Natriuretic Peptide Total Protein Albumin TSH Urine Color Yellow Urine Appearance Cloudy Urine pH 5.5 Ur Specific [place] 1.014 Urine Protein 1+ H Urine Glucose (UA) Negative Urine Ketones Negative Urine Blood 3+ H Urine Nitrite Negative Urine Bilirubin Negative Urine Urobilinogen 0.2 Ur Leukocyte Esterase 3+ H Urine WBC (Auto) 105 Urine RBC (Auto) 23 Urine Casts (Auto) 1 U Epithel Cells (Auto) 0 Urine Bacteria (Auto) 878.1 Ur Random Creatinine 138.0 Ur Random Sodium Ur Random Potassium Ur Random Chloride Blood Type Antibody Screen 12/24/18 12/24/18 12/24/18 05:30 05:30 05:30 WBC 14.0 H RBC 3.05 L Hgb 10.0 L Hct 29.4 L D MCV 96.3 H MCH 32.7 MCHC 34.0 RDW 13.8 Plt Count 148 D MPV 10.2 Absolute Neuts (auto) 12.8 H Neutrophils % 91.2 H Neutrophils % (Manual) 81.8 D Band Neutrophils % 9.1 Lymphocytes % 4.7 L D Lymphocytes % (Manual) 7.1 L D Monocytes % 4.0 Monocytes % (Manual) 2 L Eosinophils % 0.0 Eosinophils % (Manual) 0.0 Basophils % 0.1 Basophils % (Manual) 0.0 Myelocytes % (Man) 0 Promyelocytes % (Man) 0 Blast Cells % (Manual) 0 Nucleated RBC % 0 Metamyelocytes 0 D Hypochromia Dohle Bodies 1+ Platelet Estimate Decreased Polychromasia Poikilocytosis Basophilic Stippling Anisocytosis Microcytosis Macrocytosis Spherocytes Bow Cells PT with INR INR PTT (Actin FS) Sodium 135 L Potassium 3.4 L Chloride 105 Carbon Dioxide 18 L Anion Gap 12 BUN 69.2 H Creatinine 3.6 H Est GFR (CKD-EPI)AfAm 16.36 Est GFR (CKD-EPI)NonAf 14.12 Random Glucose 179 H Lactic Acid 1.7 Calcium 8.2 L Phosphorus 4.0 Magnesium 2.0 Total Bilirubin 0.5 AST 82 H ALT 23 Alkaline Phosphatase 80 Creatine Kinase Creatine Kinase Index CK-MB (CK-2) Troponin I B-Natriuretic Peptide Total Protein 6.0 L Albumin 2.1 L TSH Urine Color Urine Appearance Urine pH Ur Specific [place] Urine Protein Urine Glucose (UA) Urine Ketones Urine Blood Urine Nitrite Urine Bilirubin Urine Urobilinogen Ur Leukocyte Esterase Urine WBC (Auto) Urine RBC (Auto) Urine Casts (Auto) U Epithel Cells (Auto) Urine Bacteria (Auto) Ur Random Creatinine Ur Random Sodium Ur Random Potassium Ur Random Chloride Blood Type Antibody Screen 12/24/18 05:30 WBC RBC Hgb Hct MCV MCH MCHC RDW Plt Count MPV Absolute Neuts (auto) Neutrophils % Neutrophils % (Manual) Band Neutrophils % Lymphocytes % Lymphocytes % (Manual) Monocytes % Monocytes % (Manual) Eosinophils % Eosinophils % (Manual) Basophils % Basophils % (Manual) Myelocytes % (Man) Promyelocytes % (Man) Blast Cells % (Manual) Nucleated RBC % Metamyelocytes Hypochromia Dohle Bodies Platelet Estimate Polychromasia Poikilocytosis Basophilic Stippling Anisocytosis Microcytosis Macrocytosis Spherocytes Bow Cells PT with INR INR PTT (Actin FS) 37.1 H Sodium Potassium Chloride Carbon Dioxide Anion Gap BUN Creatinine Est GFR (CKD-EPI)AfAm Est GFR (CKD-EPI)NonAf Random Glucose Lactic Acid Calcium Phosphorus Magnesium Total Bilirubin AST ALT Alkaline Phosphatase Creatine Kinase Creatine Kinase Index CK-MB (CK-2) Troponin I B-Natriuretic Peptide Total Protein Albumin TSH Urine Color Urine Appearance Urine pH Ur Specific [place] Urine Protein Urine Glucose (UA) Urine Ketones Urine Blood Urine Nitrite Urine Bilirubin Urine Urobilinogen Ur Leukocyte Esterase Urine WBC (Auto) Urine RBC (Auto) Urine Casts (Auto) U Epithel Cells (Auto) Urine Bacteria (Auto) Ur Random Creatinine Ur Random Sodium Ur Random Potassium Ur Random Chloride Blood Type Antibody Screen Active Medications Generic Name Dose Route Start Last Admin Trade Name Freq PRN Reason Stop Dose Admin Heparin Sodium (Porcine) 5,000 unit 12/24/18 08:34 12/24/18 09:35 Heparin - IVPUSH 5,000 unit PRN PRN Administration APTT (SECONDS) <40 Heparin Sodium (Porcine) 1,000 unit 12/24/18 08:34 Heparin - IVPUSH PRN PRN APTT (SECONDS) 40-49 Amiodarone HCl/Dextrose 360 mg in 200 mls @ 16.667 mls/hr 12/23/18 13:30 12/01 15:20 Nexterone 360 Mg/200 Ml Bag IVPB 16.667 mls/hr ASDIR SHEEBA Administration Protocol 0.5 MG/MIN Heparin Sodium (Porcine) 25, 500 mls @ 20 mls/hr 12/23/18 13:30 12/24/18 08: 34 000 unit/ Sodium Chloride IV 1,150 unit/hr TITR SHEEBA 23 mls/hr Titration Protocol 1,000 UNIT/HR Sodium Chloride 1,000 mls @ 42 mls/hr 12/23/18 22:45 12/23/18 23:13 Normal Saline - IV 42 mls/hr ASDIR SHEEBA Administration Norepinephrine Bitartrate 8, 500 mls @ 18.75 mls/hr 12/24/18 01:45 12/24/18 02:43 000 mcg/ Dextrose IV 15 mcg/min TITR SHEBEA 56.25 mls/hr Titration Protocol 5 MCG/MIN Vancomycin HCl 1,000 mg in 250 mls @ 166.667 mls/hr 12/24/18 11:00 12/24/18 11:09 Vancomycin (Pre-Docked) IVPB 12/24/18 12:29 166.667 mls/hr ONCE ONE Administration Protocol Ceftriaxone Sodium 1 gm/ 50 mls @ 200 mls/hr 12/24/18 11:15 Dextrose IVPB DAILY SHEEBA Protocol Levetiracetam 500 mg 12/23/18 22:00 12/24/18 09:36 Keppra Injection - IVPB 500 mg BID SHEEBA Administration Levothyroxine Sodium 40 mcg 12/24/18 10:00 12/24/18 11:09 Synthroid Injection - IVPUSH 40 mcg DAILY SHEEBA Administration ASSESSMENT/PLAN: Patient is an 88 yo M witha PMHx of HTN, hx TIA, dysphagia, PPM, BPH (off eliquis, scheduled for TURP), recent admission for UTI, presented to the ED from [facility] because of weakness, hypotension, and lethargy. Found to have Afib with RVR in ED. Admitted for uncontrolled Afib and Septic shock 2/2 to UTI. #Neuro - Lethargic, AAOx2 - monitor mental status - Patient on Keppra at home: changed to IV for now #Cardio - hypotension improved - Central line placed for pressor support - On Levophed 15mcg. Wean as tolerated - monitor CVP - maintain MAP >65 - Amio drip started started for Afib, continue - Hold rate control due to hypotension - Heparin drip started, hold eliquis - Echo ordered, concern for bacteremia as well - Cardio on board #ID - Septic Shock likely from UTI - positive u/a, leukocytosis w/ left shift, hypotenson - nelson renewed - Discontinue Zosyn. - Vanc x1 ordered - Random vanc in morning, redose as appropriate - Ceftriaxone Q24 as per ID - ID consulted - Blood cx showing presumptive MSSA. repeat Blood cx ordered by ID #Pulmonary - maintaining saturation on Nasal canula - o2 supplementation as needed #Renal - CARLOS likely 2/2 obstructive uropathy - Cr 4.6 -> 3.6 (last admission in 02.14) - renew nelson - Kidney/bladder/abdominal US showing partially distended urinary bladder. Masslike density within the urinary bladder measuring 4.8cm, Differential diagnosis includes a large blood clot versus a urinary blader mass/neoplasm for which further evaluation is recommended. - strict i/o's - Nephrology consulted # - patient with hx of severe BPH, scheduled for TURP but not a candidate at this time - Nelson not removed at residential since discharge in October as per family - Nelson renewed - Urology consulted #Endocrine - hx of hypothyroidism - Continue home dose of Synthroid #Prophylaxis - heparin drip #FEN - gentle hydration, bolus as needed - Hypokalemia, repleted #Dispo - Continue to monitor in ICU - Patient is DNR/DNI Visit type - Emergency Visit Emergency Visit: Yes ED Registration Date: 12/23/18 Care time: The patient presented to the Emergency Department on the above date and was hospitalized for further evaluation of their emergent condition. - New Patient This patient is new to me today: Yes Date on this admission: 12/24/18 - Critical Care Critical Care patient: Yes Total Critical Care Time (in minutes): 36 Critical Care Statement: The care of this patient involved high complexity decision making to prevent further life threatening deterioration of the patient 's condition and/or to evaluate & treat vital organ system(s) failure or risk of failure. ATTENDING PHYSICIAN STATEMENT I saw and evaluated the patient. I reviewed the resident's note and discussed the case with the resident. I agree with the resident's findings and plan as documented. SUBJECTIVE: OBJECTIVE: ASSESSMENT AND PLAN:
--- NOTE | 2018-12-24 11:38 | PN ---
Teaching Attending Note Name of Resident: Angela Hunt ATTENDING PHYSICIAN STATEMENT I saw and evaluated the patient. I reviewed the resident's note and discussed the case with the resident. I agree with the resident's findings and plan as documented. SUBJECTIVE: Pt seen and examined in the ICU. Remains on levophed gtt. Blood cultures growing gram positive cocci in clusters. OBJECTIVE: Vital Signs Period Temp Pulse Resp BP Sys/Currie Pulse Ox Last 24 Hr 97.4 F-98.8 F 72-180 20-36 89-177/43-155 94-98 Intake & Output 12/21/18 12/22/18 12/23/18 12/24/18 23:59 23:59 23:59 23:59 Intake Total 2876 945.0 Output Total 4750 800 Balance -1874 145.0 Weight 84.776 kg 84.958 kg Gen: NAD at rest Heart: RRR Lung: decreased breath sounds at the bases Abd: soft, nontender Ext: no edema CBC, BMP 12/24/18 05:30 12/24/18 05:30 Active Medications Heparin Sodium (Porcine) (Heparin -) 5,000 unit IVPUSH PRN PRN PRN Reason: APTT (SECONDS) <40 Last Admin: 12/24/18 09:35 Dose: 5,000 unit Heparin Sodium (Porcine) (Heparin -) 1,000 unit IVPUSH PRN PRN PRN Reason: APTT (SECONDS) 40-49 Amiodarone HCl/Dextrose (Nexterone 360 Mg/200 Ml Bag) 360 mg in 200 mls @ 16.667 mls/hr IVPB ASDIR SHEEBA; Protocol Last Admin: 12/23/18 15:20 Dose: 16.667 mls/hr Heparin Sodium (Porcine) 25, (000 unit/ Sodium Chloride) 500 mls @ 20 mls/hr IV TITR SHEEBA; Protocol Last Titration: 12/24/18 08:34 Dose: 1,150 unit/hr, 23 mls/hr Sodium Chloride (Normal Saline -) 1,000 mls @ 42 mls/hr IV ASDIR SHEEBA Last Admin: 12/23/18 23:13 Dose: 42 mls/hr Norepinephrine Bitartrate 8, (000 mcg/ Dextrose) 500 mls @ 18.75 mls/hr IV TITR SHEEBA; Protocol Last Titration: 12/24/18 02:43 Dose: 15 mcg/min, 56.25 mls/hr Vancomycin HCl (Vancomycin (Pre-Docked)) 1,000 mg in 250 mls @ 166.667 mls/hr IVPB ONCE ONE; Protocol Stop: 12/24/18 12:29 Last Admin: 12/24/18 11:09 Dose: 166.667 mls/hr Ceftriaxone Sodium 1 gm/ (Dextrose) 50 mls @ 200 mls/hr IVPB DAILY [facility]; Protocol Levetiracetam (Keppra Injection -) 500 mg IVPB BID SHEEBA Last Admin: 12/24/18 09:36 Dose: 500 mg Levothyroxine Sodium (Synthroid Injection -) 40 mcg IVPUSH DAILY SHEEBA Last Admin: 12/24/18 11:09 Dose: 40 mcg Potassium Chloride (K-Dur -) 40 meq PO ONCE ONE Stop: 12/24/18 11:37 ASSESSMENT AND PLAN: Gram Positive Bacteremia UTI Septic Shock Lactic Acidosis Acute on Chronic Renal Failure Atrial Fibrillation with RVR h/o PPM Hypothyroidism Anemia - continue antibiotics - f/u cultures - echocardiogram - IVF boluses - monitor urine output, creatinine - taper pressors to maintain MAP >65 - amiodarone gtt - continue anticoagulation - O2 to keep SpO2 >90% - continue ICU monitoring critical care time spent in reviewing chart, evaluating patient and formulating plan 35 min
[2018-12-24] MEDS ORDERED: cefTRIAXone SODIUM 1 GM VIAL ONE (12:23)
--- NOTE | 2018-12-24 12:25 | PN ---
Teaching Attending Note Name of Resident: Jamila Monae ATTENDING PHYSICIAN STATEMENT I saw and evaluated the patient. I reviewed the resident's note and discussed the case with the resident. I agree with the resident's findings and plan as documented. SUBJECTIVE: OBJECTIVE: ASSESSMENT AND PLAN: MULTIPLE +BC STAPH SP. ? SIGNIFICANCE R/O STAPH BACTEREMIA/ SEPSIS - UNCLEAR SOURCE OBSTRUCTIVE UROPATHY/ INDWELLING MONTEJO RENAL FAILURE REPEAT BC, CHECK ECHO EMPIRIC VANCOMYCIN 1GM X 1 DOSE CEFTRIAXONE Q24H
--- NOTE | 2018-12-24 12:25 | PN ---
Progress Note (short form) - Note Progress Note: patient seen and examined in ICU awake - feeling "better " nelson in place , draining cloudy urine Vital Signs Period Temp Pulse Resp BP Sys/Currie Pulse Ox Last 24 Hr 97.4 F-98.8 F 72-166 20-36 89-177/43-155 95-98 Intake & Output 12/21/18 12/22/18 12/23/18 12/24/18 23:59 23:59 23:59 23:59 Intake Total 2876 945.0 Output Total 4750 800 Balance -1874 145.0 Weight 186 lb 14.4 oz 187 lb 4.8 oz patient awake / interactive neck - jvd heart S1/S2 irreg lungs clear ant and laterally abd no tenderness / no pelvic distension appreciated nelson in place ext no edema CBC, BMP 12/24/18 05:30 12/24/18 05:30 admission Cr 4.7 Microbiology 12/23/18 12:55 Blood - Peripheral Venous Blood Culture - Preliminary Pending Organism 12/23/18 12:55 Blood - Peripheral Venous Blood Culture - Preliminary Pending Organism Active Medications Heparin Sodium (Porcine) (Heparin -) 5,000 unit IVPUSH PRN PRN PRN Reason: APTT (SECONDS) <40 Last Admin: 12/24/18 09:35 Dose: 5,000 unit Heparin Sodium (Porcine) (Heparin -) 1,000 unit IVPUSH PRN PRN PRN Reason: APTT (SECONDS) 40-49 Amiodarone HCl/Dextrose (Nexterone 360 Mg/200 Ml Bag) 360 mg in 200 mls @ 16.667 mls/hr IVPB [facility]; Protocol Last Admin: 12/23/18 15:20 Dose: 16.667 mls/hr Heparin Sodium (Porcine) 25, (000 unit/ Sodium Chloride) 500 mls @ 20 mls/hr IV TITR [facility]; Protocol Last Titration: 12/24/18 08:34 Dose: 1,150 unit/hr, 23 mls/hr Sodium Chloride (Normal Saline -) 1,000 mls @ 42 mls/hr IV ASDIR SHEEBA Last Admin: 12/23/18 23:13 Dose: 42 mls/hr Norepinephrine Bitartrate 8, (000 mcg/ Dextrose) 500 mls @ 18.75 mls/hr IV TITR [facility]; Protocol Last Titration: 12/24/18 11:40 Dose: 10 mcg/min, 37.5 mls/hr Ceftriaxone Sodium 1 gm/ (Dextrose) 50 mls @ 200 mls/hr IVPB DAILY [facility]; Protocol Last Admin: 12/24/18 12:26 Dose: 200 mls/hr Levetiracetam (Keppra Injection -) 500 mg IVPB BID [facility] Last Admin: 12/24/18 09:36 Dose: 500 mg Levothyroxine Sodium (Synthroid Injection -) 40 mcg IVPUSH DAILY [facility] Last Admin: 12/24/18 11:09 Dose: 40 mcg # Septic shock / lactic acidosis - ? source continue empiric IV abx - await c/s IV fluids / continue norepi taper as tolerated / CCU monitoring ID consult / CC consult / nephrology consult # Obstructive uropathy similar event on last hospitalization ( ARF due to obstruction ) nelson in place consult - was pending TURP # A fib - admitted with RVR (2/2 AKR / Obs uropathy /septic shock) Continue Amiodarone drip UFH drip echo cardiogram ?? need for ZENY -- per Cardio # AKF contine IV fluids / trend renal function Nephrology consult Problem List - Problems (1) Acute renal failure Code(s): N17.9 - ACUTE KIDNEY FAILURE, UNSPECIFIED Qualifiers: Acute renal failure type: unspecified Qualified Code(s): N17.9 - Acute kidney failure, unspecified (2) Atrial fibrillation with RVR Code(s): I48.91 - UNSPECIFIED ATRIAL FIBRILLATION (3) BPH (benign prostatic hyperplasia) Code(s): N40.0 - BENIGN PROSTATIC HYPERPLASIA WITHOUT LOWER URINRY TRACT SYMP (4) H/O: CVA (cerebrovascular accident) Code(s): Z86.73 - PRSNL HX OF TIA (TIA), AND CEREB INFRC W/O RESID DEFICITS (5) Hypertension Code(s): I10 - ESSENTIAL (PRIMARY) HYPERTENSION (6) Hypothyroid Code(s): E03.9 - HYPOTHYROIDISM, UNSPECIFIED (7) Urinary retention due to benign prostatic hyperplasia Code(s): N40.1 - BENIGN PROSTATIC HYPERPLASIA WITH LOWER URINARY TRACT SYMP; R33.8 - OTHER RETENTION OF URINE
[2018-12-24] MEDS: CEFTRIAXONE 1 GM in DEXTROSE 5%-WATER - 50 ML IVPB SCH (12:26)
[2018-12-24] MEDS: HEPARIN - 25,000 UNIT in SODIUM CHLORIDE 495 ML IV SCH (13:35)
[2018-12-24] MEDS: AMIODARONE IN DEXTROSE,ISO-OSM 360 MG/200 ML BAG IVPB SCH (13:36)
[2018-12-24] MEDS ORDERED: NOREPINEPHRINE BITARTRATE 4 MG/4 ML ML IV ONE (14:03)
--- NOTE | 2018-12-24 14:40 | CONSULT ---
Admitting History and Physical - Primary Care Physician PCP: Sonia Nicholson I - Admission History of Present Illness: Per EMR- 88 yo M witha PMHx of HTN, hx TIA, dysphagia, PPM, BPH (off eliquis, scheduled for TURP), recent admission for UTI, presented to the ED from [place] because of weakness, hypotension, and lethargy. Found to have Afib with RVR in ED. Admitted for uncontrolled Afib and Septic shock 2/2 to UTI. Selected Entries 12/23/18 12/23/18 12/23/18 11:56 15:01 16:54 Temperature 97.6 F 97.4 F L 97.5 F L 12/23/18 12/23/18 12/23/18 17:01 19:27 20:55 Temperature 98.0 F 98.0 F 98.0 F 12/23/18 12/24/18 12/24/18 23:00 03:00 11:00 Temperature 98.4 F 98.8 F 98.7 F Laboratory Tests 12/23/18 12/24/18 11:15 05:30 WBC 14.8 H 14.0 H Selected Entries 12/23/18 12/24/18 22:33 10:00 Breakfast 0 Supper 0 Pt was from [facility], admitted 10/2018 with falls. Transferred to [place] for STR. Pt with dx of Dysphagia at [place], was on chopped/thin liquid. 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 Cardiovascular: Yes: HTN, Other (PPM insertion, possible SSS or a-fib) Renal/: Yes: BPH, UTI, Other (obstructive uropathy) Psych: Yes: Anxiety Endocrine: Yes: Hypothyroidism - Past Surgical History Past Surgical History: Yes: Permanent Pacemaker - Smoking History Smoking history: Never smoked - Alcohol/Substance Use Hx Alcohol Use: No History of Substance Use: reports: None - Social History ADL: Independent History of Recent Travel: No History - Admission Reason For Visit: AFIB WITH RAPID VENTRICULAR RESPONSE - Diagnostics X-ray: Report Reviewed - General Mental Status: Alert and Oriented, Awake and Alert, Able to Follow Commands Attention: Mild Impairment Ability to Follow Directions: Good Head/Neck Control: Good - Hearing Hearing: Functional Speech Evaluation - Communication Primary Language: [place] Communication: Yes: Within Normal Limits Oral Expression Ability: Yes: No Impairment - Speech Production Able to Make Needs Known: Yes: WNL Intelligibility: Yes: WNL - Speech Characteristics Voice Loudness: Normal Voice Pitch: Yes: Normal Voice Phonatory-based Quality: Yes: Normal Speech Pattern: Normal Speech Clarity: < 100% Nasal Resonance: Normal Articulation: Yes: Precise Rate of Speech: Intact - Language/Auditory Comprehension Follows: Yes: 2 Stage Simple Commands - Language/Verbal Expression Able to Respond to Simple Queries: Yes: WNL Able to Communicate Wants and Needs: Yes: WNL Functional Communication Status: Yes: WNL - 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: Yes: WNL Short Term Memory: Yes: WNL - Swallow Evaluation/Bedside Assessment Current Nutritional Intake: Thin Liquids, Other (chopped) Oral Secretions: Yes: WFL, Dryness Dentition: Yes: Adequate Facial Symmetry at Rest: Symmetrical Facial Symmetry on Retraction: Symmetrical Against Resistance Opening: Normal Against Resistance Closing: Normal Pucker Lips: Normal Smile: Normal Lingual Movement: Normal, Symmetric Lingual Speed of Movement: Normal Lingual Movement Strgth Against Opposition: Normal Lingual Movement Characteristics: Normal Laryngeal Elevation: WFL Laryngeal Movement: Able to Palpate Rate of Intake: WFL Bolus Size: Small Labial Seal: WFL Chewing: Impaired (mildly labored with banana cake. Oral dryness.) Oral Prep Time: Increased Pocketing: None Coughing/Throat Clear: No (3 oz water test (-)) Change in Voice: No Recommendations - Speech Evaluation, Impression/Plan Impression: Mildly labored with banana cake, suspect due to oral dryness. (-) 3 oz water test. Oriented. Sleepy but arousable. - Disposition Discharge to: To be Determined - Dysphagia Impressions/Plan Dysphagia Impressions: Minimal Impairment *Silent aspiration: cannot be R/O at bedside Dysphagia Treatment Plan: Small Bites, Chin Tuck/Down, Clear Pocket Food, Trial Feedings, Safe Rate, 1/2 tsp. at a time, Elevate HOB during feed Recommendations: Modified Barium Swallow (before d/c to upgrade to most liberal diet pt can tolerate) - Recommendations Diet Consistency: Dysphagia Whole (chopped meat,extra gravy) Liquids: Thin Liquids Supplement: Ensure, Magic Cup
--- NOTE | 2018-12-24 18:44 | PN ---
Progress Note (short form) - Note Progress Note: Anesthesia preop note Patient seen and examined. Admitted with Afib with RVR. On levophed and amiodarone drip, now Sinus rhythm. UTI, sepsis. Currently medically unstable for scheduled TURP surgery. Discussed with Dr Gimenez.
[2018-12-25] MEDS: HEPARIN NA (PORCINE) 5,000 UNITS/ML 1ML VIAL IVPUSH PRN (01:22)
[2018-12-25] MEDS: NOREPINEPHRINE BITARTRATE 8,000 MCG in DEXTROSE 5%-WATER - 492 ML IV SCH ×2 (01:44→04:17)
[2018-12-25] MEDS: AMIODARONE IN DEXTROSE,ISO-OSM 360 MG/200 ML BAG IVPB SCH ×3 (03:00→16:27)
[2018-12-25] MEDS ORDERED: NOREPINEPHRINE BITARTRATE 4 MG/4 ML ML IV ONE (04:06)
[2018-12-25] MEDS: SODIUM CHLORIDE 1,000 ML IV SCH ×2 (04:16→22:52)
[2018-12-25] MEDS: LEVOTHYROXINE NA 50 MCG TABLET (FP) PO SCH (06:13)
[2018-12-25 07:16] LABS: EOS % 0.3 % (0-4.5); HEMATOCRIT 29.5 % (35.4-49); LYMPH % 6.3 % (8-40); MCH 32.7 pg (25.7-33.7); MCHC 33.9 g/dl (32.0-35.9); MEAN CELL VOLUME 96.4 fl (80-96); MEAN PLT VOLUME 10.8 fl (7.5-11.1); NEUT % 86.4 % (42.8-82.8); PLATELET COUNT 124 K/MM3 (134-434); RBC 3.06 M/mm3 (4.00-5.60); RDW 13.7 % (11.9-15.9); WHITE BLOOD COUNT 10.7 K/mm3 (4.0-10.0)
--- NOTE | 2018-12-25 07:42 | ECHO ---
Name: VIKKI GREENE, JR Exam:Adult Echocardiogram Study Date: 12/24/2018 07:56 AM Age: 88 yrs Reason For Study: A-Fib Height: 71 in Weight: 181 lb BSA: 2.0 m2 MMode/2D Measurements & Calculations IVSd: 1.1 cm Ao root diam: 2.2 cm LVIDd: 4.5 cm LA dimension: 2.7 cm LVIDs: 3.4 cm LVPWd: 1.1 cm EDV(Teich): 92.0 ml LVOT diam: 2.0 cm ESV(Teich): 48.4 ml LAV (MOD-bp): 49.4 ml Doppler Measurements & Calculations MV E max edison: 93.1 cm/sec Ao V2 max: 157.5 cm/sec MV A max edison: 130.0 cm/sec Ao max P.9 mmHg MV E/A: 0.72 AI P1/2t: 454.0 msec MV dec time: 0.24 sec WALTER(V,D): 2.0 cm2 AI max edison: 276.9 cm/sec LV V1 max P.4 mmHg AI max P.7 mmHg LV V1 max: 104.3 cm/sec AI dec slope: 178.6 cm/sec2 MR max edison: 403.5 cm/sec TR max edison: 277.8 cm/sec MR max P.0 mmHg TR max P.9 mmHg PA V2 max: 92.3 cm/sec Med Peak E' Edison: 5.2 cm/sec PA max P.4 mmHg Med E/e': 17.8 Lat Peak E' Edison: 10.6 cm/sec Lat E/e': 8.8 Procedure A complete two-dimensional transthoracic echocardiogram was performed (2D, M-mode, Doppler and color flow Doppler). Left Ventricle The left ventricle is normal in size. Left ventricular systolic function is normal. Ejection Fraction = 55- 60%. Diastolic dysfunction, Grade II, consistent with elevated left atrial pressure. Ratio E/E'= 18. No regional wall motion abnormalities noted. Right Ventricle The right ventricle is not well visualized. Atria The left atrial size is normal. LA volume index is 25 ml/m2. Right atrial size is normal. Mitral Valve There is mild mitral annular calcification. There is no mitral regurgitation noted. Tricuspid Valve The tricuspid valve is normal in structure and function. There is mild tricuspid regurgitation. Pulmo nary artery systolic pressure is at least 34 mmHg if RA pressure is assumed 3 mmHg. Aortic Valve There is mild aortic sclerosis.;. Mild aortic regurgitation. Pulmonic Valve The pulmonic valve is not well visualized. Great Vessels The aortic root is normal size. Pericardium/Pleura There is no pericardial effusion. Interpretation Summary The left ventricle is normal in size. Left ventricular systolic function is normal. No regional wall motion abnormalities noted. Ejection Fraction = 55-60%. Diastolic dysfunction, Grade II, consistent with elevated left atrial pressure. Ratio E/E'= 18 The right ventricle is not well visualized. The left atrial size is normal. Right atrial size is normal. There is mild mitral annular calcification. There is mild tricuspid regurgitation. Pulmonary artery systolic pressure is at least 34 mmHg if RA pressure is assumed 3 mmHg There is mild aortic sclerosis. Mild aortic regurgitation. There is no pericardial effusion. Previous study is not available for comparison Khris Martinez MD 12/24/2018 10:56 AM
[2018-12-25 08:39] LABS: ALBUMIN 1.9 g/dl (3.4-5.0); BILIRUBIN,TOTAL 0.2 mg/dL (0.2-1); CALCIUM 7.8 mg/dL (8.5-10.1); CREATININE 2.1 mg/dL (0.55-1.3); MAGNESIUM 1.8 mg/dL (1.8-2.4); PHOSPHOROUS 2.6 mg/dL (2.5-4.9); POTASSIUM 3.1 mmol/L (3.5-5.1); TOT PROT 5.6 g/dl (6.4-8.2)
--- NOTE | 2018-12-25 08:48 | PN ---
Progress Note (short form) - Note Progress Note: patient seen and examined in ICU awake - feeling "better " nelson in place , draining cloudy urine Vital Signs Period Temp Pulse Resp BP Sys/Currie Pulse Ox Last 24 Hr 97.1 F-99.5 F 75-87 20-28 104-132/45-55 96-97 Intake & Output 12/22/18 12/23/18 12/24/18 12/25/18 23:59 23:59 23:59 23:59 Intake Total 2876 4534.0 1777.4 Output Total 4750 2500 800 Balance -1874 2034.0 977.4 Weight 186 lb 14.4 oz 187 lb 4.8 oz 192 lb 4.8 oz patient awake / interactive neck - jvd heart S1/S2 irreg lungs clear ant and laterally abd no tenderness / no pelvic distension appreciated nelson in place ext no edema CBC, BMP 12/25/18 06:00 12/25/18 06:00 CBC, BMP 12/24/18 05:30 12/24/18 05:30 admission Cr 4.7 Microbiology 12/23/18 14:00 Urine - Urine - Catheterized Urine Culture - Final Contaminated: Please Repeat 12/23/18 12:55 Blood - Peripheral Venous Blood Culture - Preliminary Presumptive Mssa (Pbp2a Neg) 12/23/18 12:55 Blood - Peripheral Venous Blood Culture - Preliminary Presumptive Mssa (Pbp2a Neg) 12/24/18 11:20 Blood - Central Line Blood Culture - Preliminary Pending Organism Active Medications Heparin Sodium (Porcine) (Heparin -) 5,000 unit IVPUSH PRN PRN PRN Reason: APTT (SECONDS) <40 Last Admin: 12/25/18 01:22 Dose: 5,000 unit Heparin Sodium (Porcine) (Heparin -) 1,000 unit IVPUSH PRN PRN PRN Reason: APTT (SECONDS) 40-49 Last Admin: 12/24/18 16:46 Dose: 1,000 unit Amiodarone HCl/Dextrose (Nexterone 360 Mg/200 Ml Bag) 360 mg in 200 mls @ 16.667 mls/hr IVPB ASDIR SHEEBA; Protocol Last Admin: 12/25/18 03:00 Dose: 16.667 mls/hr Heparin Sodium (Porcine) 25, (000 unit/ Sodium Chloride) 500 mls @ 20 mls/hr IV TITR SHEEBA; Protocol Last Titration: 12/25/18 07:58 Dose: 1,350 unit/hr, 27 mls/hr Sodium Chloride (Normal Saline -) 1,000 mls @ 42 mls/hr IV ASDIR SHEEBA Last Admin: 12/25/18 04:16 Dose: 42 mls/hr Norepinephrine Bitartrate 8, (000 mcg/ Dextrose) 500 mls @ 18.75 mls/hr IV TITR SHEEBA; Protocol Last Admin: 12/25/18 04:17 Dose: 8 mcg/min, 30 mls/hr Ceftriaxone Sodium 1 gm/ (Dextrose) 50 mls @ 200 mls/hr IVPB DAILY [facility]; Protocol Last Admin: 12/24/18 12:26 Dose: 200 mls/hr Levetiracetam (Keppra Injection -) 500 mg IVPB BID [facility] Last Admin: 12/24/18 21:35 Dose: 500 mg Levothyroxine Sodium (Synthroid -) 50 mcg PO DAILY@0700 [facility] Last Admin: 12/25/18 06:13 Dose: 50 mcg Assmt / plan # Septic shock / lactic acidosis - ? source continue empiric IV abx - await c/s IV fluids / continue norepi taper as tolerated / CCU monitoring ID consult / CC consult / nephrology consult # Obstructive uropathy similar event on last hospitalization ( ARF due to obstruction ) nelson in place consult - was pending TURP # A fib - admitted with RVR (2/2 AKR / Obs uropathy /septic shock) Continue Amiodarone drip UFH drip echo cardiogram ?? need for ZENY -- per Cardio # AKF contine IV fluids / trend renal function Nephrology consult Problem List - Problems (1) Acute renal failure Code(s): N17.9 - ACUTE KIDNEY FAILURE, UNSPECIFIED Qualifiers: Acute renal failure type: unspecified Qualified Code(s): N17.9 - Acute kidney failure, unspecified (2) Atrial fibrillation with RVR Code(s): I48.91 - UNSPECIFIED ATRIAL FIBRILLATION (3) BPH (benign prostatic hyperplasia) Code(s): N40.0 - BENIGN PROSTATIC HYPERPLASIA WITHOUT LOWER URINRY TRACT SYMP (4) H/O: CVA (cerebrovascular accident) Code(s): Z86.73 - PRSNL HX OF TIA (TIA), AND CEREB INFRC W/O RESID DEFICITS (5) Hypertension Code(s): I10 - ESSENTIAL (PRIMARY) HYPERTENSION (6) Hypothyroid Code(s): E03.9 - HYPOTHYROIDISM, UNSPECIFIED (7) Urinary retention due to benign prostatic hyperplasia Code(s): N40.1 - BENIGN PROSTATIC HYPERPLASIA WITH LOWER URINARY TRACT SYMP; R33.8 - OTHER RETENTION OF URINE
[2018-12-25] MEDS ORDERED: cefTRIAXone SODIUM 1 GM VIAL ONE (09:09)
[2018-12-25] MEDS ORDERED: DEXTROSE 5%-WATER - 50 ML IVPB ONE (09:09)
[2018-12-25] MEDS: levETIRAcetam 500 MG/5 ML INJECTION VIAL IVPB SCH ×2 (09:11→22:18)
[2018-12-25] MEDS: CEFTRIAXONE 1 GM in DEXTROSE 5%-WATER - 50 ML IVPB SCH (09:12)
[2018-12-25] MEDS ORDERED: NAPH,MB-DB/K PH,MBDB POWDER PACKET PO ONE (09:30)
--- NOTE | 2018-12-25 09:30 | PN ---
Progress Note, Physician History of Present Illness: Mr. Hogan is an 88y/o male with BPH (was scheduled for TURP on 12/25), klebsiella positive UTI treated with Ceftriaxone and Keflex (10/2018), urinary retention (urinary catheter placed), PPM (?SSS/a-fib), and CVA who presents from [facility] with hypotension post-medication administration yesterday. He was hypertensive at 178/133 and HR 130 and was given medication then was hypotensive and presented to ED. He was reported to be weak and lethargic. He has had recent falls at OR per chart. Overnight pt denies chest pain, abdominal pain, fever, or chills. He reports feeling more tired than yesterday. - Current Medication List Current Medications: Active Medications Heparin Sodium (Porcine) (Heparin -) 5,000 unit IVPUSH PRN PRN PRN Reason: APTT (SECONDS) <40 Last Admin: 12/25/18 01:22 Dose: 5,000 unit Heparin Sodium (Porcine) (Heparin -) 1,000 unit IVPUSH PRN PRN PRN Reason: APTT (SECONDS) 40-49 Last Admin: 12/24/18 16:46 Dose: 1,000 unit Amiodarone HCl/Dextrose (Nexterone 360 Mg/200 Ml Bag) 360 mg in 200 mls @ 16.667 mls/hr IVPB ASDIR SHEEBA; Protocol Last Admin: 12/25/18 03:00 Dose: 16.667 mls/hr Heparin Sodium (Porcine) 25, (000 unit/ Sodium Chloride) 500 mls @ 20 mls/hr IV TITR [facility]; Protocol Last Titration: 12/25/18 07:58 Dose: 1,350 unit/hr, 27 mls/hr Sodium Chloride (Normal Saline -) 1,000 mls @ 42 mls/hr IV ASDIR SHEEBA Last Admin: 12/25/18 04:16 Dose: 42 mls/hr Norepinephrine Bitartrate 8, (000 mcg/ Dextrose) 500 mls @ 18.75 mls/hr IV TITR [facility]; Protocol Last Titration: 12/25/18 09:00 Dose: 5 mcg/min, 18.75 mls/hr Ceftriaxone Sodium 1 gm/ (Dextrose) 50 mls @ 200 mls/hr IVPB DAILY [facility]; Protocol Last Admin: 12/25/18 09:12 Dose: 200 mls/hr Potassium Chloride (Potassium Chloride 10 Meq Premix Ivpb -) 10 meq in 100 mls @ 100 mls/hr IVPB Q60M [facility] Stop: 12/25/18 12:44 Levetiracetam (Keppra Injection -) 500 mg IVPB BID [facility] Last Admin: 12/25/18 09:11 Dose: 500 mg Levothyroxine Sodium (Synthroid -) 50 mcg PO DAILY@0700 [facility] Last Admin: 12/25/18 06:13 Dose: 50 mcg Potassium Phos/Sodium Phos (Phos-Nak Packet -) 1 packet PO ONCE ONE Stop: 12/25/18 09:31 - Objective Vital Signs: Vital Signs Temperature 97.3 F L 12/25/18 08:00 Pulse Rate 80 12/25/18 09:00 Respiratory Rate 21 H 12/25/18 08:00 Blood Pressure 110/51 L 12/25/18 09:00 O2 Sat by Pulse Oximetry (%) 96 12/24/18 20:18 Constitutional: Yes: No Distress, Other (sleepy but arousable) Eyes: Yes: Conjunctiva Clear, EOM Intact HENT: Yes: Atraumatic, Normocephalic Neck: Yes: Supple, Trachea Midline Cardiovascular: Yes: Regular Rate and Rhythm. No: Murmur Respiratory: Yes: CTA Bilaterally Gastrointestinal: Yes: Abdomen, Obese, Distention, Hyperactive Bowel Sounds Extremities: Yes: Other (no pain with active left shoulder flexion) Edema: LLE: Trace, RLE: 1+ Integumentary: Yes: Other (no rashes noted on extremities, no erythema, induration, or tenderness to palpation at pacemaker site and axilla) Neurological: Yes: Alert Labs: CBC, BMP 12/25/18 06:00 12/25/18 06:00 INR, PTT INR 1.22 (0.83-1.09) H 12/23/18 12:55 - ....Imaging Ultrasound: Report Reviewed (EF 55-60%, grade II diastolic dysfunction, mitral calcification, mild TR, increased pulm artery pressure at 34, mild , mild AR, no effusion, no vegetations) Impression/Plan Impression/Plan: Mr. Hogan is an 88y/o male with BPH, klebsiella positive UTI treated with Ceftriaxone and Keflex (10/2018), urinary retention (urinary catheter placed), and CKD who presents from [facility] with hypotension and a-fib with RVR post- hypertensive medication administration. Leukocytosis borderline normal now. He has been afebrile. Cr improving. Initial blood cultures are presumptive for MSSA and second set Gram positive cocci in clusters. Per chart, pacemaker generator replacement done in September 2018 at [facility]. Pt denies tenderness to palpation at site. No erythema or shoulder pain. TTE negative for vegetations. UA positive for leuk esterase, blood, WBCs, and bacteria. Urine cx contaminated. Zosyn d/c'ed yesterday. Vancomycin and ceftriaxone given yesterday. #septic shock 2/2 bacteremia Possibly MSSA bacteremia, unsure of source -nafcillin 2g Q4H -repeat blood cultures tomorrow morning -CBC Visit type - Emergency Visit Emergency Visit: Yes ED Registration Date: 12/23/18 Care time: The patient presented to the Emergency Department on the above date and was hospitalized for further evaluation of their emergent condition. - New Patient This patient is new to me today: No - Critical Care Critical Care patient: Yes Total Critical Care Time (in minutes): 35 Critical Care Statement: The care of this patient involved high complexity decision making to prevent further life threatening deterioration of the patient 's condition and/or to evaluate & treat vital organ system(s) failure or risk of failure. - Discharge Referral Referred to [facility] Med P.C.: No ATTENDING PHYSICIAN STATEMENT I saw and evaluated the patient. I reviewed the resident's note and discussed the case with the resident. I agree with the resident's findings and plan as documented. SUBJECTIVE: OBJECTIVE: ASSESSMENT AND PLAN:
[2018-12-25] MEDS: KCL 10 MEQ IVPB 10 MEQ/100 ML INFUS.BAG IVPB SCH ×3 (10:14→12:30)
[2018-12-25] MEDS ORDERED: NAFCILLIN - 2 GM in DEXTROSE 5%-WATER - 100 ML IVPB SCH (10:30)
--- NOTE | 2018-12-25 11:24 | PN ---
Teaching Attending Note Name of Resident: Jamila Monae ATTENDING PHYSICIAN STATEMENT I saw and evaluated the patient. I reviewed the resident's note and discussed the case with the resident. I agree with the resident's findings and plan as documented. SUBJECTIVE: AWAKE,RESPONSIVE NO COMPLIANTS BC PRESUMED MSSA OBJECTIVE: SUPINE IN BED COR S1S2 LUNGS DECREASED BC BILATERALLY ABDO SOFT, NON TENDER 1+ EDEMA ASSESSMENT AND PLAN: MSSA BACTEREMIA R/O ENDOCARDITIS OBSTRUCTIVE UROPATHY RENAL FAILURE AWAIT BC RESULTS REPEAT BC SUBSTITUTE NAFCILLIN
--- NOTE | 2018-12-25 12:01 | PN ---
Teaching Attending Note Name of Resident: Angela Hunt ATTENDING PHYSICIAN STATEMENT I saw and evaluated the patient. I reviewed the resident's note and discussed the case with the resident. I agree with the resident's findings and plan as documented. SUBJECTIVE: Pt seen and examined in the ICU. Remains on levophed gtt but on lower dose. Multiple blood cultures growing MSSA. OBJECTIVE: Vital Signs Period Temp Pulse Resp BP Sys/Currie Pulse Ox Last 24 Hr 97.1 F-99.5 F 75-87 21-28 104-132/45-55 96-98 Intake & Output 12/22/18 12/23/18 12/24/18 12/25/18 23:59 23:59 23:59 23:59 Intake Total 2876 4534.0 1777.4 Output Total 4750 2500 800 Balance -1874 2034.0 977.4 Weight 84.776 kg 84.958 kg 87.226 kg Gen: NAD at rest Heart: RRR Lung: decreased breath sounds at the bases Abd: soft, nontender Ext: no edema CBC, BMP 12/25/18 06:00 12/25/18 06:00 Active Medications Heparin Sodium (Porcine) (Heparin -) 5,000 unit IVPUSH PRN PRN PRN Reason: APTT (SECONDS) <40 Last Admin: 12/25/18 01:22 Dose: 5,000 unit Heparin Sodium (Porcine) (Heparin -) 1,000 unit IVPUSH PRN PRN PRN Reason: APTT (SECONDS) 40-49 Last Admin: 12/24/18 16:46 Dose: 1,000 unit Amiodarone HCl/Dextrose (Nexterone 360 Mg/200 Ml Bag) 360 mg in 200 mls @ 16.667 mls/hr IVPB [facility]; Protocol Last Admin: 12/25/18 03:00 Dose: 16.667 mls/hr Heparin Sodium (Porcine) 25, (000 unit/ Sodium Chloride) 500 mls @ 20 mls/hr IV TITR [facility]; Protocol Last Titration: 12/25/18 07:58 Dose: 1,350 unit/hr, 27 mls/hr Sodium Chloride (Normal Saline -) 1,000 mls @ 42 mls/hr IV [facility]IR [facility] Last Admin: 12/25/18 04:16 Dose: 42 mls/hr Norepinephrine Bitartrate 8, (000 mcg/ Dextrose) 500 mls @ 18.75 mls/hr IV TITR [facility]; Protocol Last Titration: 12/25/18 10:18 Dose: 3 mcg/min, 11.25 mls/hr Potassium Chloride (Potassium Chloride 10 Meq Premix Ivpb -) 10 meq in 100 mls @ 100 mls/hr IVPB Q60M [facility] Stop: 12/25/18 12:44 Last Admin: 12/25/18 10:14 Dose: 100 mls/hr Nafcillin Sodium 2 gm/ (Dextrose) 100 mls @ 100 mls/hr IVPB Q4H-IV [facility]; Protocol Levetiracetam (Keppra Injection -) 500 mg IVPB BID [facility] Last Admin: 12/25/18 09:11 Dose: 500 mg Levothyroxine Sodium (Synthroid -) 50 mcg PO DAILY@0700 [facility] Last Admin: 12/25/18 06:13 Dose: 50 mcg ASSESSMENT AND PLAN: MSSA Bacteremia UTI r/o Endocarditis Septic Shock Lactic Acidosis Acute on Chronic Renal Failure Atrial Fibrillation with RVR h/o PPM Hypothyroidism Anemia - continue antibiotics - f/u cultures - discuss with cardiology - ?PPM lead not visualized on echocardiogram - IVF - replete lytes - monitor urine output, creatinine - taper pressors to maintain MAP >65 - amiodarone gtt - continue anticoagulation - O2 to keep SpO2 >90% - continue ICU monitoring critical care time spent in reviewing chart, evaluating patient and formulating plan 35 min
--- NOTE | 2018-12-25 12:03 | PN ---
Progress Note, Physician History of Present Illness: Pt seen and examined at bedside. He appears comfortable. - Current Medication List Current Medications: Active Medications Heparin Sodium (Porcine) (Heparin -) 5,000 unit IVPUSH PRN PRN PRN Reason: APTT (SECONDS) <40 Last Admin: 12/25/18 01:22 Dose: 5,000 unit Heparin Sodium (Porcine) (Heparin -) 1,000 unit IVPUSH PRN PRN PRN Reason: APTT (SECONDS) 40-49 Last Admin: 12/24/18 16:46 Dose: 1,000 unit Amiodarone HCl/Dextrose (Nexterone 360 Mg/200 Ml Bag) 360 mg in 200 mls @ 16.667 mls/hr IVPB ASDIR SHEEBA; Protocol Last Admin: 12/25/18 03:00 Dose: 16.667 mls/hr Heparin Sodium (Porcine) 25, (000 unit/ Sodium Chloride) 500 mls @ 20 mls/hr IV TITR SHEEBA; Protocol Last Titration: 12/25/18 07:58 Dose: 1,350 unit/hr, 27 mls/hr Sodium Chloride (Normal Saline -) 1,000 mls @ 42 mls/hr IV ASDIR SHEEBA Last Admin: 12/25/18 04:16 Dose: 42 mls/hr Norepinephrine Bitartrate 8, (000 mcg/ Dextrose) 500 mls @ 18.75 mls/hr IV TITR SHEEBA; Protocol Last Titration: 12/25/18 10:18 Dose: 3 mcg/min, 11.25 mls/hr Potassium Chloride (Potassium Chloride 10 Meq Premix Ivpb -) 10 meq in 100 mls @ 100 mls/hr IVPB Q60M SHEEBA Stop: 12/25/18 12:44 Last Admin: 12/25/18 10:14 Dose: 100 mls/hr Nafcillin Sodium 2 gm/ (Dextrose) 100 mls @ 100 mls/hr IVPB Q4H-IV SHEEBA; Protocol Levetiracetam (Keppra Injection -) 500 mg IVPB BID SHEEBA Last Admin: 12/25/18 09:11 Dose: 500 mg Levothyroxine Sodium (Synthroid -) 50 mcg PO DAILY@0700 SHEEBA Last Admin: 12/25/18 06:13 Dose: 50 mcg - Objective Vital Signs: Vital Signs Temperature 97.3 F L 12/25/18 08:00 Pulse Rate 78 12/25/18 10:18 Respiratory Rate 21 H 12/25/18 10:00 Blood Pressure 123/49 L 12/25/18 10:18 O2 Sat by Pulse Oximetry (%) 98 12/25/18 09:00 Constitutional: Yes: Calm Eyes: Yes: Conjunctiva Clear HENT: Yes: Atraumatic Cardiovascular: Yes: S1, S2 Respiratory: Yes: CTA Bilaterally Gastrointestinal: Yes: Normal Bowel Sounds, Soft Genitourinary: Yes: Perez Present Edema: Yes Edema: LLE: 1+, RLE: 1+ Neurological: Yes: Confusion Labs: CBC, BMP 12/25/18 06:00 12/25/18 06:00 INR, PTT INR 1.22 (0.83-1.09) H 12/23/18 12:55 Problem List - Problems (1) Acute renal failure Code(s): N17.9 - ACUTE KIDNEY FAILURE, UNSPECIFIED Qualifiers: Qualified Code(s): N17.9 - Acute kidney failure, unspecified (2) Atrial fibrillation with RVR Code(s): I48.91 - UNSPECIFIED ATRIAL FIBRILLATION Assessment/Plan Current Medications Generic Name Dose Route Start Last Admin Trade Name Freq PRN Reason Stop Dose Admin Heparin Sodium (Porcine) 5,000 unit 12/24/18 08:34 12/25/18 01:22 Heparin - IVPUSH 5,000 unit PRN PRN Administration APTT (SECONDS) <40 Heparin Sodium (Porcine) 1,000 unit 12/24/18 08:34 12/24/18 16:46 Heparin - IVPUSH 1,000 unit PRN PRN Administration APTT (SECONDS) 40-49 Amiodarone HCl/Dextrose 360 mg in 200 mls @ 16.667 mls/hr 12/23/18 13:30 01/31 03:00 Nexterone 360 Mg/200 Ml Bag IVPB 16.667 mls/hr ASDIR SHEEBA Administration Protocol 0.5 MG/MIN Heparin Sodium (Porcine) 25, 500 mls @ 20 mls/hr 12/23/18 13:30 12/25/18 07: 58 000 unit/ Sodium Chloride IV 1,350 unit/hr TITR SHEEBA 27 mls/hr Titration Protocol 1,000 UNIT/HR Sodium Chloride 1,000 mls @ 42 mls/hr 12/23/18 22:45 12/25/18 04:16 Normal Saline - IV 42 mls/hr ASDIR SHEEBA Administration Norepinephrine Bitartrate 8, 500 mls @ 18.75 mls/hr 12/24/18 01:45 12/25/18 10:18 000 mcg/ Dextrose IV 3 mcg/min TITR SHEEBA 11.25 mls/hr Titration Protocol 5 MCG/MIN Potassium Chloride 10 meq in 100 mls @ 100 mls/hr 12/25/18 09:45 12/25/18 10: 14 Potassium Chloride 10 Meq Premix Ivpb - IVPB 12/25/18 12:44 100 mls/hr Q60M SHEEBA Administration Nafcillin Sodium 2 gm/ 100 mls @ 100 mls/hr 12/25/18 10:30 Dextrose IVPB Q4H-IV SHEEBA Protocol Levetiracetam 500 mg 12/23/18 22:00 12/25/18 09:11 Keppra Injection - IVPB 500 mg BID SHEEBA Administration Levothyroxine Sodium 50 mcg 12/25/18 07:00 12/25/18 06:13 Synthroid - PO 50 mcg DAILY@0700 SHEEBA Administration Impression 1. CARLOS 2. rapid a-fib 3. hypotension 4. sepsis 5. bacteremia 6. hypothyroidism 7. epilepsy Plan - renal function improving - carlos likely in part pre-renal diseae - rate is improved - monitor output - fluids decreased, I agree - maintain map 65 - monitor volume status closely, he is developing lower ext edema - cardio input appreciated - follow cultures - discussed with ICU team - replace potassium - monitor lytes
--- NOTE | 2018-12-25 12:16 | PN ---
Progress Note, [facility] - Note Progress Note: Selected Entries 12/24/18 12/24/18 12/24/18 03:00 11:00 15:00 Breakfast Supper Temperature 98.8 F 98.7 F 99.5 F 12/24/18 12/24/18 12/24/18 18:36 21:00 22:00 Breakfast Supper 25% Temperature 99.5 F 97.1 F L 12/24/18 12/25/18 12/25/18 23:00 01:00 03:00 Breakfast Supper Temperature 98 F 97.8 F 97.8 F 12/25/18 12/25/18 12/25/18 05:00 06:34 08:00 Breakfast Supper Temperature 98 F 98 F 97.3 F L 12/25/18 10:00 Breakfast 25% Supper Temperature Laboratory Tests 12/23/18 12/24/18 12/25/18 11:15 05:30 06:00 WBC 14.8 H 14.0 H 10.7 H On chopped/thin liquids Poor po acceptance/appetite
[2018-12-25 12:35] VITALS: BMI 26.7
--- NOTE | 2018-12-25 12:47 | PN ---
Progress Note (short form) - Note Progress Note: s: no chest pain, palps, dizziness, dyspnea Current Medications Heparin Sodium (Porcine) (Heparin -) 5,000 unit IVPUSH PRN PRN PRN Reason: APTT (SECONDS) <40 Last Admin: 12/25/18 01:22 Dose: 5,000 unit Heparin Sodium (Porcine) (Heparin -) 1,000 unit IVPUSH PRN PRN PRN Reason: APTT (SECONDS) 40-49 Last Admin: 12/24/18 16:46 Dose: 1,000 unit Amiodarone HCl/Dextrose (Nexterone 360 Mg/200 Ml Bag) 360 mg in 200 mls @ 16.667 mls/hr IVPB ASDIR SHEEBA; Protocol Last Admin: 12/25/18 03:00 Dose: 16.667 mls/hr Heparin Sodium (Porcine) 25, (000 unit/ Sodium Chloride) 500 mls @ 20 mls/hr IV TITR SHEEBA; Protocol Last Titration: 12/25/18 07:58 Dose: 1,350 unit/hr, 27 mls/hr Sodium Chloride (Normal Saline -) 1,000 mls @ 42 mls/hr IV ASDIR SHEEBA Last Admin: 12/25/18 04:16 Dose: 42 mls/hr Norepinephrine Bitartrate 8, (000 mcg/ Dextrose) 500 mls @ 18.75 mls/hr IV TITR SHEEBA; Protocol Last Titration: 12/25/18 10:18 Dose: 3 mcg/min, 11.25 mls/hr Potassium Chloride (Potassium Chloride 10 Meq Premix Ivpb -) 10 meq in 100 mls @ 100 mls/hr IVPB Q60M SHEEBA Stop: 12/25/18 12:44 Last Admin: 12/25/18 10:14 Dose: 100 mls/hr Nafcillin Sodium 2 gm/ (Dextrose) 100 mls @ 100 mls/hr IVPB Q4H-IV SHEEBA; Protocol Levetiracetam (Keppra Injection -) 500 mg IVPB BID SHEEBA Last Admin: 12/25/18 09:11 Dose: 500 mg Levothyroxine Sodium (Synthroid -) 50 mcg PO DAILY@0700 SHEEBA Last Admin: 12/25/18 06:13 Dose: 50 mcg Vital Signs Period Temp Pulse Resp BP Sys/Currie Pulse Ox Last 24 Hr 97.1 F-99.5 F 75-87 21-28 104-132/45-55 96-98 Constitutional: Yes: Well Nourished, No Distress Eyes: No: Sclera Icterus HENT: No: Nasal Congestion Neck: No: Decreased ROM Respiratory: Yes: CTA Bilaterally (not deep breaths). No: Accessory Muscle Use Gastrointestinal: Yes: Normal Bowel Sounds. No: Distention, Hepatomegaly, Palpable Mass, Tenderness Cardiovascular: Yes: Regular Rate and Rhythm Chest: pocket site, no erythema, tenderness or fluctuance JVD: No Carotid Bruit: No PMI: Non-Displaced Heart Sounds: Yes: S1, S2. No: Gallop Murmur: No: Systolic Murmur, Diastolic Murmur Musculoskeletal: Yes: Other (No kyphosis) Extremities: No: Cool, Cyanosis Edema: No Peripheral Pulses: 2+ Left Carotid, 2+ Right Carotid, 2+ Left Doralis Pedis, 2+ Right Dorsalis Pedis Integumentary: No: Jaundice Neurological: Yes: Lethargy. No: Seizure Psychiatric: No: Agitated Assessment/Plan ECG: rapid AF, mild NSST-Ts likely rate related CXR: new pleural effusions--reviewed, ? small effusions--resolved on CXR #2 Echo 07/01: TDS. nl LVSF, probably normal RV. mild AI. mild-mod MR/TR Renal/bladder sono: no hydro, ? 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 clot, vs other echo 12/2018 nl LV, RV not well visualized, grade II diastolic dysfunction, mild MR, mild TR, PASP >34 mmHg, mild AR tele: NSR, PVCs, brief PSVT septic shock: -lactate elevated initiatlly--cont IVF -BCX +MSSA -pt is s/p PM generator change at [facility] (dr carbajal) on 10/11/18- pocket site no erythema, tenderness, fluctuance, less likely pocket infection. per Dr. Bassett d /w EP continue abx for now if recurrent fevers on abx can consider ZENY -weaning norepi CARLOS, urinary retention with indwelling nelson: -plan per crit care, renal/ PAF, rapid HR: -hypotension limiting AVN blockers, improving, weaning norepi -cont amio gtt for now -cont UFH gtt (hold eliquis in case of need for invasive procedures) PPM, s/p generator change recently (Dr. Martin, [facility]): -as above est time in data review, pt exam, formulating mgmt plan of potentially life- threatening problems = 35 min
[2018-12-25] MEDS ORDERED: PT OWN MED DRAWER 7, Y5N ONE ×3 (14:09→23:03)
[2018-12-25] MEDS: HEPARIN - 25,000 UNIT in SODIUM CHLORIDE 495 ML IV SCH (14:13)
[2018-12-25] MEDS: NAFCILLIN - 2 GM in DEXTROSE 5%-WATER - 100 ML IVPB SCH ×3 (14:13→22:52)
--- NOTE | 2018-12-25 14:39 | PN ---
Physical Exam: SUBJECTIVE: Patient seen and examined. Denies any complaints. Denies abd pain, chest pain, or SOB. No acute events overnight. OBJECTIVE: Vital Signs Period Temp Pulse Resp BP Sys/Currie Pulse Ox Last 24 Hr 97.1 F-99.5 F 75-91 21-28 104-132/45-56 96-98 GENERAL: AAOx2 (self and place), no acute distress, awake, alert HEAD: Normal with no signs of trauma. EYES: PERRL, EOMI, no scleral icterus ENT: dry mucous membranes, poor oral dentition. NECK: Trachea midline, full range of motion, supple. LUNGS: decreased breath sounds at bases. no wheezes, no crackles, no accessory muscle use. HEART: Regular rate and rhythm, S1, S2 without murmur, rub or gallop. ABDOMEN: Soft, nontender, nondistended, normoactive bowel sounds, no guarding, no rebound EXTREMITIES: 2+ pulses, warm, well-perfused. no edema SKIN: warm, dry Laboratory Results - last 24 hr 12/24/18 12/25/18 12/25/18 15:00 00:20 06:00 WBC RBC Hgb Hct MCV MCH MCHC RDW Plt Count MPV Absolute Neuts (auto) Neutrophils % Lymphocytes % Monocytes % Eosinophils % Basophils % Nucleated RBC % PTT (Actin FS) 46.5 H 36.4 81.7 H Sodium Potassium Chloride Carbon Dioxide Anion Gap BUN Creatinine Est GFR (CKD-EPI)AfAm Est GFR (CKD-EPI)NonAf Random Glucose Calcium Phosphorus Magnesium Total Bilirubin AST ALT Alkaline Phosphatase Total Protein Albumin Random Vancomycin 12/25/18 12/25/18 12/25/18 06:00 06:00 06:30 WBC 10.7 H RBC 3.06 L Hgb 10.0 L Hct 29.5 L MCV 96.4 H MCH 32.7 MCHC 33.9 RDW 13.7 Plt Count 124 L MPV 10.8 Absolute Neuts (auto) 9.3 H Neutrophils % 86.4 H Lymphocytes % 6.3 L D Monocytes % 7.0 Eosinophils % 0.3 D Basophils % 0.0 Nucleated RBC % 0 PTT (Actin FS) Sodium 136 Potassium 3.1 L Chloride 108 H Carbon Dioxide 18 L Anion Gap 10 BUN 41.0 H Creatinine 2.1 H Est GFR (CKD-EPI)AfAm 31.40 Est GFR (CKD-EPI)NonAf 27.09 Random Glucose 136 H Calcium 7.8 L Phosphorus 2.6 Magnesium 1.8 Total Bilirubin 0.2 AST 64 H ALT 22 Alkaline Phosphatase 94 Total Protein 5.6 L Albumin 1.9 L Random Vancomycin 7.8 L Active Medications Generic Name Dose Route Start Last Admin Trade Name Freq PRN Reason Stop Dose Admin Heparin Sodium (Porcine) 5,000 unit 12/24/18 08:34 12/25/18 01:22 Heparin - IVPUSH 5,000 unit PRN PRN Administration APTT (SECONDS) <40 Heparin Sodium (Porcine) 1,000 unit 12/24/18 08:34 12/24/18 16:46 Heparin - IVPUSH 1,000 unit PRN PRN Administration APTT (SECONDS) 40-49 Amiodarone HCl/Dextrose 360 mg in 200 mls @ 16.667 mls/hr 12/23/18 13:30 01/31 03:00 Nexterone 360 Mg/200 Ml Bag IVPB 16.667 mls/hr ASDIR SHEEBA Administration Protocol 0.5 MG/MIN Heparin Sodium (Porcine) 25, 500 mls @ 20 mls/hr 12/23/18 13:30 12/25/18 07: 58 000 unit/ Sodium Chloride IV 1,350 unit/hr TITR SHEEBA 27 mls/hr Titration Protocol 1,000 UNIT/HR Sodium Chloride 1,000 mls @ 42 mls/hr 12/23/18 22:45 12/25/18 04:16 Normal Saline - IV 42 mls/hr ASDIR SHEEBA Administration Norepinephrine Bitartrate 8, 500 mls @ 18.75 mls/hr 12/24/18 01:45 12/25/18 10:18 000 mcg/ Dextrose IV 3 mcg/min TITR SHEEBA 11.25 mls/hr Titration Protocol 5 MCG/MIN Nafcillin Sodium 2 gm/ 100 mls @ 100 mls/hr 12/25/18 14:00 Dextrose IVPB Q4H-IV SHEEBA Protocol Levetiracetam 500 mg 12/23/18 22:00 12/25/18 09:11 Keppra Injection - IVPB 500 mg BID SHEEBA Administration Levothyroxine Sodium 50 mcg 12/25/18 07:00 12/25/18 06:13 Synthroid - PO 50 mcg DAILY@0700 SHEEBA Administration ASSESSMENT/PLAN: Patient is an 88 yo M witha PMHx of HTN, hx TIA, dysphagia, PPM, BPH (off eliquis, scheduled for TURP), recent admission for UTI, presented to the ED from [facility] because of weakness, hypotension, and lethargy. Found to have Afib with RVR in ED. Admitted for uncontrolled Afib and Septic shock 2/2 to UTI. #Neuro - AAOx2, monitor - Patient on Keppra at home: changed to IV for now #Cardio - hypotension improved - Central line placed for pressor support - On Levophed 3mcg. Wean as tolerated. Can discontinue Amiodorone drip when off Levophed - maintain MAP >65 - Amio drip started started for Afib, continue until off of Levophed - Heparin drip started, hold eliquis in case of need for invasive procedures - Echo - No vegetations seen. Normal EF. Mild tricuspid and Aortic regurg - Cardio on board -pt is s/p PM generator change at [facility] (Dr. De La Cruz) on 10/11/18- pocket site without erythema, tenderness, fluctuance. less likely pocket infection. Per Dr. Bassett d/w EP continue abx for now. If recurrent fevers on abx can consider ZENY #ID - Septic Shock likely from UTI - positive u/a, leukocytosis w/ left shift, hypotenson. Leukocytosis improving, now at 10.7 - nelson renewed - Nafcillin IV Q4hr - Discontinue Zosyn and ceftriaxone. - Vanc x1 ordered - ID consulted - Initial blood culture with Staph Aureus x2 bottles. Repeat Blood Cx pending organism. Repeat Blood cultures tomorrow morning as per ID. #Pulmonary - maintaining saturation on Nasal canula - maintain O2 saturation >90% #Renal - CARLOS likely 2/2 obstructive uropathy - Cr 4.6 -> 3.6 -> 2.1 (last admission in 02.14). Renal function improving - nelson renewed - Kidney/bladder/abdominal US showing partially distended urinary bladder. Masslike density within the urinary bladder measuring 4.8cm, Differential diagnosis includes a large blood clot versus a urinary blader mass/neoplasm for which further evaluation is recommended. - strict i/o's - Nephrology consulted # - patient with hx of severe BPH, was scheduled for TURP but not a candidate at this time - Nelson not removed at long term since discharge in October as per family - Nelson renewed - Urology consulted #Endocrine - hx of hypothyroidism - Continue home dose of Synthroid #Prophylaxis - heparin drip #FEN - gentle hydration, bolus as needed - Hypokalemia, repleted #Dispo - Continue to monitor in ICU - Patient is DNR/DNI Visit type - Emergency Visit Emergency Visit: Yes ED Registration Date: 12/23/18 Care time: The patient presented to the Emergency Department on the above date and was hospitalized for further evaluation of their emergent condition. - New Patient This patient is new to me today: No - Critical Care Critical Care patient: Yes Total Critical Care Time (in minutes): 36 Critical Care Statement: The care of this patient involved high complexity decision making to prevent further life threatening deterioration of the patient 's condition and/or to evaluate & treat vital organ system(s) failure or risk of failure. ATTENDING PHYSICIAN STATEMENT I saw and evaluated the patient. I reviewed the resident's note and discussed the case with the resident. I agree with the resident's findings and plan as documented. SUBJECTIVE: OBJECTIVE: ASSESSMENT AND PLAN:
[2018-12-26] MEDS ORDERED: PT OWN MED DRAWER 7, Y5N ONE ×7 (02:09→21:40)
[2018-12-26] MEDS: NAFCILLIN - 2 GM in DEXTROSE 5%-WATER - 100 ML IVPB SCH ×6 (02:13→22:28)
[2018-12-26] MEDS: NOREPINEPHRINE BITARTRATE 8,000 MCG in DEXTROSE 5%-WATER - 492 ML IV SCH (02:16)
[2018-12-26] MEDS: SODIUM CHLORIDE 1,000 ML IV SCH (04:05)
[2018-12-26] MEDS: AMIODARONE IN DEXTROSE,ISO-OSM 360 MG/200 ML BAG IVPB SCH ×2 (04:05→15:44)
[2018-12-26] MEDS: LEVOTHYROXINE NA 50 MCG TABLET (FP) PO SCH (06:25)
[2018-12-26] MEDS ORDERED: POTASSIUM CHLORIDE TABS 20 MEQ TABLET.ER (FP) PO ONE (07:20)
[2018-12-26 07:57] LABS: HEMATOCRIT 32.7 % (35.4-49); HEMOGLOBIN 11.4 GM/dL (11.7-16.9); MCH 33.1 pg (25.7-33.7); MCHC 34.7 g/dl (32.0-35.9); MEAN CELL VOLUME 95.4 fl (80-96); MEAN PLT VOLUME 10.8 fl (7.5-11.1); PLATELET COUNT 134 K/MM3 (134-434); RBC 3.43 M/mm3 (4.00-5.60); RDW 14.3 % (11.9-15.9); WHITE BLOOD COUNT 10.7 K/mm3 (4.0-10.0)
[2018-12-26 08:22] LABS: ALBUMIN 1.8 g/dl (3.4-5.0); BILIRUBIN,TOTAL 1.3 mg/dL (0.2-1); BLOOD UREA NITROGEN 37.5 mg/dL (7-18); CALCIUM 8.2 mg/dL (8.5-10.1); CREATININE 2.1 mg/dL (0.55-1.3); MAGNESIUM 1.7 mg/dL (1.8-2.4); PHOSPHOROUS 3.3 mg/dL (2.5-4.9); POTASSIUM 3.3 mmol/L (3.5-5.1)
[2018-12-26] MEDS: KCL 10 MEQ IVPB 10 MEQ/100 ML INFUS.BAG IVPB SCH ×3 (08:33→10:43)
[2018-12-26] MEDS ORDERED: MAGNESIUM SULF 50% (8.12 MEQ/2 ML-1 GM VIAL) IVPB ONE (08:44)
[2018-12-26] MEDS: HEPARIN NA (PORCINE) 5,000 UNITS/ML 1ML VIAL IVPUSH PRN (08:50)
[2018-12-26] MEDS: levETIRAcetam 500 MG/5 ML INJECTION VIAL IVPB SCH ×2 (09:50→22:28)
[2018-12-26] MEDS ORDERED: FUROSEMIDE 40 MG/4 ML INJECTABLE VIAL IVPUSH ONE (10:16)
[2018-12-26] MEDS: ALBUTEROL SO4 2.5/IPRATROPIUM 0.5 INH SOL 3 ML VIAL.NEB. NEB SCH ×3 (11:20→20:23)
--- NOTE | 2018-12-26 11:27 | PN ---
Progress Note (short form) - Note Progress Note: s: feels short of breath. no chest pain, palps, dizziness Current Medications Albuterol/Ipratropium (Duoneb -) 1 amp NEB RQID SHEEBA Heparin Sodium (Porcine) (Heparin -) 5,000 unit IVPUSH PRN PRN PRN Reason: APTT (SECONDS) <40 Last Admin: 12/25/18 01:22 Dose: 5,000 unit Heparin Sodium (Porcine) (Heparin -) 1,000 unit IVPUSH PRN PRN PRN Reason: APTT (SECONDS) 40-49 Last Admin: 12/26/18 08:50 Dose: 1,000 unit Amiodarone HCl/Dextrose (Nexterone 360 Mg/200 Ml Bag) 360 mg in 200 mls @ 16.667 mls/hr IVPB ASDIR SHEEBA; Protocol Last Admin: 12/26/18 04:05 Dose: 16.667 mls/hr Heparin Sodium (Porcine) 25, (000 unit/ Sodium Chloride) 500 mls @ 20 mls/hr IV TITR SHEEBA; Protocol Last Titration: 12/26/18 08:49 Dose: 1,450 unit/hr, 29 mls/hr Norepinephrine Bitartrate 8, (000 mcg/ Dextrose) 500 mls @ 18.75 mls/hr IV TITR SHEEBA; Protocol Last Admin: 12/26/18 02:16 Dose: Not Given Nafcillin Sodium 2 gm/ (Dextrose) 100 mls @ 100 mls/hr IVPB Q4H-IV SHEEBA; Protocol Last Admin: 12/26/18 10:43 Dose: 100 mls/hr Levetiracetam (Keppra Injection -) 500 mg IVPB BID [facility] Last Admin: 12/26/18 09:50 Dose: 500 mg Levothyroxine Sodium (Synthroid -) 50 mcg PO DAILY@0700 [facility] Last Admin: 12/26/18 06:25 Dose: 50 mcg Vital Signs Period Temp Pulse Resp BP Sys/Currie Pulse Ox Last 24 Hr 97.4 F-98.1 F 89-108 22-28 116-155/51-63 98-98 Constitutional: Yes: Well Nourished, No Distress Eyes: No: Sclera Icterus HENT: No: Nasal Congestion Neck: No: Decreased ROM Respiratory: Yes: diffuse rhonchi, dec breath sounds at bases Gastrointestinal: Yes: Normal Bowel Sounds. No: Distention, Hepatomegaly, Palpable Mass, Tenderness Cardiovascular: Yes: Regular Rate and Rhythm Chest: pocket site, no erythema, tenderness or fluctuance JVD: No Carotid Bruit: No PMI: Non-Displaced Heart Sounds: Yes: S1, S2. No: Gallop Murmur: No: Systolic Murmur, Diastolic Murmur Musculoskeletal: Yes: Other (No kyphosis) Extremities: No: Cool, Cyanosis Edema: No Peripheral Pulses: 2+ Left Carotid, 2+ Right Carotid, 2+ Left Doralis Pedis, 2+ Right Dorsalis Pedis Integumentary: No: Jaundice Neurological: Yes: Lethargy. No: Seizure Psychiatric: No: Agitated Assessment/Plan ECG: rapid AF, mild NSST-Ts likely rate related CXR: new pleural effusions--reviewed, ? small effusions--resolved on CXR #2 Echo 07/01: TDS. nl LVSF, probably normal RV. mild AI. mild-mod MR/TR Renal/bladder sono: no hydro, ? 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 clot, vs other echo 12/2018 nl LV, RV not well visualized, grade II diastolic dysfunction, mild MR, mild TR, PASP >34 mmHg, mild AR tele:sinus, PVCs septic shock: -lactate elevated initiatlly--cont IVF -BCX +MSSA -pt is s/p PM generator change at [facility] (dr carbajal) on 10/11/18- pocket site no erythema, tenderness, fluctuance, less likely pocket infection. per Dr. Bassett d /w EP continue abx for now if recurrent fevers on abx can consider ZENY - now off pressors - CXR reviewed - IV lasix per critical care CARLOS, urinary retention with indwelling nelson: -plan per crit care, renal/ PAF, rapid HR: -norepi weaned off, remains in sinus on amio gtt, continue for now -cont UFH gtt (hold eliquis in case of need for invasive procedures) PPM, s/p generator change recently (Dr. Martin, [facility]): -as above est time in data review, pt exam, formulating mgmt plan of potentially life- threatening problems = 35 min
[2018-12-26] MEDS ORDERED: MORPHINE SULFATE 2 MG/ML VIAL IVPUSH ONE (11:58)
[2018-12-26] MEDS ORDERED: MORPHINE SULFATE 2 MG/ML VIAL ONE (11:58)
--- NOTE | 2018-12-26 12:18 | PN ---
Progress Note, Physician History of Present Illness: Pt seen and examined at bedside. He has a cough. he denies chest pain. - Current Medication List Current Medications: Active Medications Albuterol/Ipratropium (Duoneb -) 1 amp NEB RQID SHEEBA Heparin Sodium (Porcine) (Heparin -) 5,000 unit IVPUSH PRN PRN PRN Reason: APTT (SECONDS) <40 Last Admin: 12/25/18 01:22 Dose: 5,000 unit Heparin Sodium (Porcine) (Heparin -) 1,000 unit IVPUSH PRN PRN PRN Reason: APTT (SECONDS) 40-49 Last Admin: 12/26/18 08:50 Dose: 1,000 unit Amiodarone HCl/Dextrose (Nexterone 360 Mg/200 Ml Bag) 360 mg in 200 mls @ 16.667 mls/hr IVPB ASDIR SHEEBA; Protocol Last Admin: 12/26/18 04:05 Dose: 16.667 mls/hr Heparin Sodium (Porcine) 25, (000 unit/ Sodium Chloride) 500 mls @ 20 mls/hr IV TITR SHEEBA; Protocol Last Titration: 12/26/18 08:49 Dose: 1,450 unit/hr, 29 mls/hr Norepinephrine Bitartrate 8, (000 mcg/ Dextrose) 500 mls @ 18.75 mls/hr IV TITR SHEEBA; Protocol Last Admin: 12/26/18 02:16 Dose: Not Given Nafcillin Sodium 2 gm/ (Dextrose) 100 mls @ 100 mls/hr IVPB Q4H-IV SHEEBA; Protocol Last Admin: 12/26/18 10:43 Dose: 100 mls/hr Levetiracetam (Keppra Injection -) 500 mg IVPB BID SHEEBA Last Admin: 12/26/18 09:50 Dose: 500 mg Levothyroxine Sodium (Synthroid -) 50 mcg PO DAILY@0700 [facility] Last Admin: 12/26/18 06:25 Dose: 50 mcg - Objective Vital Signs: Vital Signs Temperature 97.5 F L 12/26/18 10:00 Pulse Rate 103 H 12/26/18 11:15 Respiratory Rate 23 H 12/26/18 10:00 Blood Pressure 128/57 L 12/26/18 10:00 O2 Sat by Pulse Oximetry (%) 96 12/26/18 11:15 Constitutional: Yes: Calm Eyes: Yes: Conjunctiva Clear HENT: Yes: Atraumatic Neck: Yes: Supple Cardiovascular: Yes: S1, S2 Respiratory: Yes: Wheezes Gastrointestinal: Yes: Soft Genitourinary: Yes: Perez Present Musculoskeletal: Yes: Muscle Weakness Edema: Yes Integumentary: Yes: WNL Neurological: Yes: Confusion Labs: CBC, BMP 12/26/18 05:53 12/26/18 05:53 INR, PTT INR 1.22 (0.83-1.09) H 12/23/18 12:55 - ....Imaging Chest X-ray: Report Reviewed Problem List - Problems (1) Acute renal failure Code(s): N17.9 - ACUTE KIDNEY FAILURE, UNSPECIFIED Qualifiers: Acute renal failure type: unspecified Qualified Code(s): N17.9 - Acute kidney failure, unspecified (2) Atrial fibrillation with RVR Code(s): I48.91 - UNSPECIFIED ATRIAL FIBRILLATION Assessment/Plan Current Medications Generic Name Dose Route Start Last Admin Trade Name Freq PRN Reason Stop Dose Admin Albuterol/Ipratropium 1 amp 12/26/18 12:00 Duoneb - NEB RQID SHEEBA Heparin Sodium (Porcine) 5,000 unit 12/24/18 08:34 12/25/18 01:22 Heparin - IVPUSH 5,000 unit PRN PRN Administration APTT (SECONDS) <40 Heparin Sodium (Porcine) 1,000 unit 12/24/18 08:34 12/26/18 08:50 Heparin - IVPUSH 1,000 unit PRN PRN Administration APTT (SECONDS) 40-49 Amiodarone HCl/Dextrose 360 mg in 200 mls @ 16.667 mls/hr 12/23/18 13:30 04:05 Nexterone 360 Mg/200 Ml Bag IVPB 16.667 mls/hr ASDIR SHEEBA Administration Protocol 0.5 MG/MIN Heparin Sodium (Porcine) 25, 500 mls @ 20 mls/hr 12/23/18 13:30 12/26/18 08: 49 000 unit/ Sodium Chloride IV 1,450 unit/hr TITR SHEEBA 29 mls/hr Titration Protocol 1,000 UNIT/HR Norepinephrine Bitartrate 8, 500 mls @ 18.75 mls/hr 12/24/18 01:45 12/26/18 02:16 000 mcg/ Dextrose IV Not Given TITR SHEEBA Protocol 5 MCG/MIN Nafcillin Sodium 2 gm/ 100 mls @ 100 mls/hr 12/25/18 14:00 12/26/18 10:43 Dextrose IVPB 100 mls/hr Q4H-IV SHEEBA Administration Protocol Levetiracetam 500 mg 12/23/18 22:00 12/26/18 09:50 Keppra Injection - IVPB 500 mg BID SHEEBA Administration Levothyroxine Sodium 50 mcg 12/25/18 07:00 12/26/18 06:25 Synthroid - PO 50 mcg DAILY@0700 SHEEBA Administration Impression 1. CARLOS 2. rapid a-fib 3. hypotension 4. sepsis 5. bacteremia 6. hypothyroidism 7. epilepsy Plan - cont to monitor renal function - d/c fluids - monitor volume status - replace potassium and mag - pt did get lasix - maintain map 65 - monitor lytes
--- NOTE | 2018-12-26 12:38 | PN ---
Teaching Attending Note Name of Resident: Danny Mehta ATTENDING PHYSICIAN STATEMENT I saw and evaluated the patient. I reviewed the resident's note and discussed the case with the resident. I agree with the resident's findings and plan as documented. SUBJECTIVE: Pt seen and examined in the ICU. Off pressors but hypoxic, tachypneic this AM. Given lasix for audible rhonchi. Placed on BiPAP. Family contacted, confirms DNR /DNI status. OBJECTIVE: Vital Signs Period Temp Pulse Resp BP Sys/Currie Pulse Ox Last 24 Hr 97.4 F-98.1 F 89-108 22-28 116-155/51-63 96-98 Intake & Output 12/23/18 12/24/18 12/25/18 12/26/18 23:59 23:59 23:59 23:59 Intake Total 2876 4534.0 4022.4 1995.6 Output Total 4750 2500 1600 200 Balance -1874 2034.0 2422.4 1795.6 Weight 84.776 kg 84.958 kg 87.09 kg 87.09 kg Gen: tachypneic at rest Heart: RRR Lung: bilateral rhonchi Abd: soft, nontender Ext: + edema CBC, BMP 12/26/18 05:53 12/26/18 05:53 Active Medications Albuterol/Ipratropium (Duoneb -) 1 amp NEB RQID SHEEBA Heparin Sodium (Porcine) (Heparin -) 5,000 unit IVPUSH PRN PRN PRN Reason: APTT (SECONDS) <40 Last Admin: 12/25/18 01:22 Dose: 5,000 unit Heparin Sodium (Porcine) (Heparin -) 1,000 unit IVPUSH PRN PRN PRN Reason: APTT (SECONDS) 40-49 Last Admin: 12/26/18 08:50 Dose: 1,000 unit Amiodarone HCl/Dextrose (Nexterone 360 Mg/200 Ml Bag) 360 mg in 200 mls @ 16.667 mls/hr IVPB ASDIR SHEEBA; Protocol Last Admin: 12/26/18 04:05 Dose: 16.667 mls/hr Heparin Sodium (Porcine) 25, (000 unit/ Sodium Chloride) 500 mls @ 20 mls/hr IV TITR SHEEBA; Protocol Last Titration: 12/26/18 08:49 Dose: 1,450 unit/hr, 29 mls/hr Norepinephrine Bitartrate 8, (000 mcg/ Dextrose) 500 mls @ 18.75 mls/hr IV TITR ON LICENSE OF [facility]; Protocol Last Admin: 12/26/18 02:16 Dose: Not Given Nafcillin Sodium 2 gm/ (Dextrose) 100 mls @ 100 mls/hr IVPB Q4H-IV SHEEBA; Protocol Last Admin: 12/26/18 10:43 Dose: 100 mls/hr Levetiracetam (Keppra Injection -) 500 mg IVPB BID ON LICENSE OF [facility] Last Admin: 12/26/18 09:50 Dose: 500 mg Levothyroxine Sodium (Synthroid -) 50 mcg PO DAILY@0700 ON LICENSE OF [facility] Last Admin: 12/26/18 06:25 Dose: 50 mcg ASSESSMENT AND PLAN: Acute Hypoxic Respiratory Failure Volume Overload MSSA Bacteremia UTI r/o Endocarditis Septic Shock Lactic Acidosis Acute on Chronic Renal Failure Atrial Fibrillation with RVR h/o PPM Hypothyroidism Anemia - continue antibiotics - f/u pending cultures - ZENY if persistently bacteremic - d/c IVF - lasix today - monitor urine output, creatinine - amiodarone gtt - continue anticoagulation - O2 to keep SpO2 >90% - continue ICU monitoring - prognosis guarded critical care time spent in reviewing chart, evaluating patient and formulating plan 35 min
[2018-12-26] MEDS: HEPARIN - 25,000 UNIT in SODIUM CHLORIDE 495 ML IV SCH (14:42)
--- NOTE | 2018-12-26 15:01 | HP ---
DATE OF ADMISSION: 12/23/2018 DATE OF DICTATION: 12/26/2018 HISTORY OF PRESENT ILLNESS: Patient is an 88-year-old male in the ICU. He is off pressors, but still hypoxic, as well as tachypneic. He was given Lasix for audible rhonchi. He was also placed on BiPAP. His blood pressure is 116/63, pulse oximetry 97, temperature 98.1. Perez is patent. Urine is clear. BUN and creatinine are 37.5 over 2.1. His white count is 10,700. IMPRESSION: At present is septic shock with lactic acidosis, acute on chronic renal failure, acute urinary retention with permanent Perez drainage. Will continue to monitor patient. When patient is medically stable, will consider urologic intervention. In the meantime, will sign off, until we are called. CRISTOPHER PACHECO M.D. [id number]
--- NOTE | 2018-12-26 16:06 | PN ---
Physical Exam: SUBJECTIVE: Patient seen and examined. No acute events overnight. Denies pain, SOB. Incorrectly guessed day of week. OBJECTIVE: Vital Signs Period Temp Pulse Resp BP Sys/Currie Pulse Ox Last 24 Hr 97.1 F-98.1 F 92-108 22-28 105-155/41-63 95-98 GENERAL: The patient is awake, alert, in no acute distress. LUNGS: Reduced breath sounds josh, no accessory muscle use. HEART: Tachycardic. Irregular rhythm, S1, S2 without murmur, rub or gallop. ABDOMEN: Soft, nontender, mildly distended, normoactive bowel sounds, no guarding, no rebound, no hepatosplenomegaly, no masses. EXTREMITIES: warm, no edema NEUROLOGICAL: AOx2 Normal speech Laboratory Results - last 24 hr 12/26/18 12/26/18 12/26/18 05:53 05:53 05:53 WBC 10.7 H RBC 3.43 L Hgb 11.4 L Hct 32.7 L MCV 95.4 MCH 33.1 MCHC 34.7 RDW 14.3 Plt Count 134 MPV 10.8 PTT (Actin FS) 40.3 H Sodium 136 Potassium 3.3 L Chloride 107 Carbon Dioxide 20 L Anion Gap 9 BUN 37.5 H Creatinine 2.1 H Est GFR (CKD-EPI)AfAm 31.40 Est GFR (CKD-EPI)NonAf 27.09 Random Glucose 145 H Calcium 8.2 L Phosphorus 3.3 Magnesium 1.7 L Total Bilirubin 1.3 H AST 34 ALT 22 Alkaline Phosphatase 102 Total Protein 6.0 L Albumin 1.8 L 12/26/18 14:50 WBC RBC Hgb Hct MCV MCH MCHC RDW Plt Count MPV PTT (Actin FS) 48.3 H Sodium Potassium Chloride Carbon Dioxide Anion Gap BUN Creatinine Est GFR (CKD-EPI)AfAm Est GFR (CKD-EPI)NonAf Random Glucose Calcium Phosphorus Magnesium Total Bilirubin AST ALT Alkaline Phosphatase Total Protein Albumin Active Medications Generic Name Dose Route Start Last Admin Trade Name Freq PRN Reason Stop Dose Admin Albuterol/Ipratropium 1 amp 12/26/18 12:00 12/26/18 15:00 Duoneb - NEB 1 amp RQID SHEEBA Administration Heparin Sodium (Porcine) 5,000 unit 12/24/18 08:34 12/25/18 01:22 Heparin - IVPUSH 5,000 unit PRN PRN Administration APTT (SECONDS) <40 Heparin Sodium (Porcine) 1,000 unit 12/24/18 08:34 12/26/18 08:50 Heparin - IVPUSH 1,000 unit PRN PRN Administration APTT (SECONDS) 40-49 Amiodarone HCl/Dextrose 360 mg in 200 mls @ 16.667 mls/hr 12/23/18 13:30 15:44 Nexterone 360 Mg/200 Ml Bag IVPB 16.667 mls/hr ASDIR SHEEBA Administration Protocol 0.5 MG/MIN Heparin Sodium (Porcine) 25, 500 mls @ 20 mls/hr 12/23/18 13:30 12/26/18 15: 44 000 unit/ Sodium Chloride IV 1,550 unit/hr TITR SHEEBA 31 mls/hr Titration Protocol 1,000 UNIT/HR Norepinephrine Bitartrate 8, 500 mls @ 18.75 mls/hr 12/24/18 01:45 12/26/18 02:16 000 mcg/ Dextrose IV Not Given TITR SHEEBA Protocol 5 MCG/MIN Nafcillin Sodium 2 gm/ 100 mls @ 100 mls/hr 12/25/18 14:00 12/26/18 14:41 Dextrose IVPB 100 mls/hr Q4H-IV SHEEBA Administration Protocol Levetiracetam 500 mg 12/23/18 22:00 12/26/18 09:50 Keppra Injection - IVPB 500 mg BID SHEEBA Administration Levothyroxine Sodium 50 mcg 12/25/18 07:00 12/26/18 06:25 Synthroid - PO 50 mcg DAILY@0700 SHEEBA Administration ASSESSMENT/PLAN: Patient is an 88 yo M with a PMHx of HTN, hx TIA, dysphagia, PPM, BPH (off eliquis, scheduled for TURP), recent admission for UTI, presented to the ED from [facility] because of weakness, hypotension, and lethargy. Admitted for uncontrolled Afib w RVR and Septic shock 2/2 to UTI. #Neuro - hx - AOx3, monitor - continue keppra #Cardio - hypotension 2/2 septic shock - R IJ CVC placed 12/23 for pressors - weaned off levophed - continue amiodorone drip for rate control, heparin drip, holding eliquis - given 40 lasix today - Echo 12/24 showed normal EF. Mild tricuspid and Aortic regurg. No vegetations seen. - pt is s/p PM generator change at [facility] (Dr. De La Cruz) on 10/11/18- pocket site without erythema, tenderness, fluctuance. less likely pocket infection. Per Dr. Bassett d/w EP continue abx for now. If recurrent fevers on abx can consider ZENY - appreciate cards recs #ID - Septic Shock 2/2 UTI - leukocytosis, WBC from 14 to 10.7 - continue Nafcillin - blood cx +MSSA - appreciate ID recs #Pulmonary - on 2L NC, nighttime BiPAP #GI - chopped diet # - CARLOS likely 2/2 obstructive uropathy, hx BPH - downtrending Cr 3.6 to 2.1 - originally scheduled for TURP but not a candidate at this time - Kidney/bladder/abdominal US 12/23 showed partially distended urinary bladder. Masslike density within the urinary bladder measuring 4.8cm, Differential diagnosis includes a large blood clot versus a urinary blader mass/neoplasm - Perez in place - I/O - appreciate neph recs #Endocrine - hx of hypothyroidism - Continue Synthroid #Ppx - heparin drip - no GI ppx #FEN - no fluids - hypoK - repleted - chopped diet #Dispo - ICU - Patient is DNR/DNI Visit type - Emergency Visit Emergency Visit: Yes ED Registration Date: 12/23/18 Care time: The patient presented to the Emergency Department on the above date and was hospitalized for further evaluation of their emergent condition. - New Patient This patient is new to me today: Yes Date on this admission: 12/26/18 - Critical Care Critical Care patient: Yes Total Critical Care Time (in minutes): 39 Critical Care Statement: The care of this patient involved high complexity decision making to prevent further life threatening deterioration of the patient 's condition and/or to evaluate & treat vital organ system(s) failure or risk of failure. ATTENDING PHYSICIAN STATEMENT I saw and evaluated the patient. I reviewed the resident's note and discussed the case with the resident. I agree with the resident's findings and plan as documented. SUBJECTIVE: OBJECTIVE: ASSESSMENT AND PLAN:
--- NOTE | 2018-12-26 16:54 | PN ---
Progress Note (short form) - Note Progress Note: patient seen and examined in ICU awake - feeling "better " nelson in place , draining cloudy urine Vital Signs Period Temp Pulse Resp BP Sys/Currie Pulse Ox Last 24 Hr 97.1 F-98.1 F 92-108 22-28 105-155/41-63 95-98 Intake & Output 12/23/18 12/24/18 12/25/18 12/26/18 23:59 23:59 23:59 23:59 Intake Total 2876 4534.0 4022.4 3081.6 Output Total 4750 2500 1600 600 Balance -1874 2034.0 2422.4 2481.6 Weight 186 lb 14.4 oz 187 lb 4.8 oz 192 lb 192 lb patient awake / interactive neck - jvd heart S1/S2 irreg lungs clear ant and laterally abd no tenderness / no pelvic distension appreciated nelson in place ext no edema CBC, BMP 12/26/18 05:53 12/26/18 05:53 CBC, BMP 12/25/18 06:00 12/25/18 06:00 CBC, BMP 12/24/18 05:30 12/24/18 05:30 admission Cr 4.7 Microbiology 12/24/18 11:50 Blood - Peripheral Venous Blood Culture - Preliminary Presumptive Mssa (Pbp2a Neg) 12/24/18 11:20 Blood - Central Line Blood Culture - Preliminary Presumptive Mssa (Pbp2a Neg) 12/23/18 12:55 Blood - Peripheral Venous Blood Culture - Final Staphylococcus Aureus 12/23/18 12:55 Blood - Peripheral Venous Blood Culture - Final Staphylococcus Aureus 12/23/18 14:00 Urine - Urine - Catheterized Urine Culture - Final Contaminated: Please Repeat Active Medications Heparin Sodium (Porcine) (Heparin -) 5,000 unit IVPUSH PRN PRN PRN Reason: APTT (SECONDS) <40 Last Admin: 12/25/18 01:22 Dose: 5,000 unit Heparin Sodium (Porcine) (Heparin -) 1,000 unit IVPUSH PRN PRN PRN Reason: APTT (SECONDS) 40-49 Last Admin: 12/24/18 16:46 Dose: 1,000 unit Amiodarone HCl/Dextrose (Nexterone 360 Mg/200 Ml Bag) 360 mg in 200 mls @ 16.667 mls/hr IVPB ASDIR SHEEBA; Protocol Last Admin: 12/25/18 03:00 Dose: 16.667 mls/hr Heparin Sodium (Porcine) 25, (000 unit/ Sodium Chloride) 500 mls @ 20 mls/hr IV TITR SHEEBA; Protocol Last Titration: 12/25/18 07:58 Dose: 1,350 unit/hr, 27 mls/hr Sodium Chloride (Normal Saline -) 1,000 mls @ 42 mls/hr IV ASDIR SHEEBA Last Admin: 12/25/18 04:16 Dose: 42 mls/hr Norepinephrine Bitartrate 8, (000 mcg/ Dextrose) 500 mls @ 18.75 mls/hr IV TITR SHEEBA; Protocol Last Admin: 12/25/18 04:17 Dose: 8 mcg/min, 30 mls/hr Ceftriaxone Sodium 1 gm/ (Dextrose) 50 mls @ 200 mls/hr IVPB DAILY SHEEBA; Protocol Last Admin: 12/24/18 12:26 Dose: 200 mls/hr Levetiracetam (Keppra Injection -) 500 mg IVPB BID SHEEBA Last Admin: 12/24/18 21:35 Dose: 500 mg Levothyroxine Sodium (Synthroid -) 50 mcg PO DAILY@0700 [facility] Last Admin: 12/25/18 06:13 Dose: 50 mcg Assmt / plan # Septic shock / lactic acidosis - ? source MSSA bacterimia blood c/s repeated appreciate ID follow up IV fluids / continue norepi taper as tolerated / CCU monitoring ID consult / CC consult / nephrology consult # Obstructive uropathy similar event on last hospitalization ( ARF due to obstruction ) nelson in place consult - was pending TURP # A fib - admitted with RVR (2/2 AKR / Obs uropathy /septic shock) Continue Amiodarone drip UFH drip echo cardiogram + bacterimia ?? need for ZENY -- discuss with Cardio # AKF contine IV fluids / trend renal function Nephrology consult appreciated Problem List - Problems (1) Acute renal failure Code(s): N17.9 - ACUTE KIDNEY FAILURE, UNSPECIFIED Qualifiers: Acute renal failure type: unspecified Qualified Code(s): N17.9 - Acute kidney failure, unspecified (2) Atrial fibrillation with RVR Code(s): I48.91 - UNSPECIFIED ATRIAL FIBRILLATION (3) BPH (benign prostatic hyperplasia) Code(s): N40.0 - BENIGN PROSTATIC HYPERPLASIA WITHOUT LOWER URINRY TRACT SYMP (4) H/O: CVA (cerebrovascular accident) Code(s): Z86.73 - PRSNL HX OF TIA (TIA), AND CEREB INFRC W/O RESID DEFICITS (5) Hypertension Code(s): I10 - ESSENTIAL (PRIMARY) HYPERTENSION (6) Hypothyroid Code(s): E03.9 - HYPOTHYROIDISM, UNSPECIFIED (7) Urinary retention due to benign prostatic hyperplasia Code(s): N40.1 - BENIGN PROSTATIC HYPERPLASIA WITH LOWER URINARY TRACT SYMP; R33.8 - OTHER RETENTION OF URINE
[2018-12-26] MEDS ORDERED: MORPHINE SULFATE 2 MG/ML VIAL IVPUSH PRN (18:11)
--- NOTE | 2018-12-26 18:15 | PN ---
Progress Note, Physician History of Present Illness: Mr. Hogan is an 88y/o male with BPH (was scheduled for TURP on 12/25), klebsiella positive UTI treated with Ceftriaxone and Keflex (10/2018), urinary retention (urinary catheter placed), PPM (?SSS/a-fib), and CVA who presents from [facility] with hypotension post-medication administration yesterday. He was hypertensive at 178/133 and HR 130 and was given medication then was hypotensive and presented to ED. He was reported to be weak and lethargic. He has had recent falls at CT per chart. Overnight pt desaturated and required BiPAP. He reports having cough prior to BiPAP. His breathing has improved. He denies chills, fever, chest pain, or abdominal pain. - Current Medication List Current Medications: Active Medications Albuterol/Ipratropium (Duoneb -) 1 amp NEB RQID SHEEBA Last Admin: 12/26/18 15:00 Dose: 1 amp Heparin Sodium (Porcine) (Heparin -) 5,000 unit IVPUSH PRN PRN PRN Reason: APTT (SECONDS) <40 Last Admin: 12/25/18 01:22 Dose: 5,000 unit Heparin Sodium (Porcine) (Heparin -) 1,000 unit IVPUSH PRN PRN PRN Reason: APTT (SECONDS) 40-49 Last Admin: 12/26/18 08:50 Dose: 1,000 unit Amiodarone HCl/Dextrose (Nexterone 360 Mg/200 Ml Bag) 360 mg in 200 mls @ 16.667 mls/hr IVPB ASDIR SHEEBA; Protocol Last Admin: 12/26/18 15:44 Dose: 16.667 mls/hr Heparin Sodium (Porcine) 25, (000 unit/ Sodium Chloride) 500 mls @ 20 mls/hr IV TITR SHEEBA; Protocol Last Titration: 12/26/18 15:44 Dose: 1,550 unit/hr, 31 mls/hr Nafcillin Sodium 2 gm/ (Dextrose) 100 mls @ 100 mls/hr IVPB Q4H-IV SHEEBA; Protocol Last Admin: 12/26/18 17:04 Dose: 100 mls/hr Levetiracetam (Keppra Injection -) 500 mg IVPB BID SHEEBA Last Admin: 12/26/18 09:50 Dose: 500 mg Levothyroxine Sodium (Synthroid -) 50 mcg PO DAILY@0700 SHEEBA Last Admin: 12/26/18 06:25 Dose: 50 mcg - Objective Vital Signs: Vital Signs Temperature 97.1 F L 12/26/18 14:00 Pulse Rate 103 H 12/26/18 16:00 Respiratory Rate 40 H 12/26/18 16:00 Blood Pressure 107/51 L 12/26/18 16:00 O2 Sat by Pulse Oximetry (%) 95 12/26/18 15:00 Constitutional: Yes: Well Nourished, Calm Eyes: Yes: Conjunctiva Clear, EOM Intact HENT: Yes: Atraumatic, Normocephalic Neck: Yes: Supple, Trachea Midline Cardiovascular: Yes: Regular Rate and Rhythm. No: Murmur Respiratory: Yes: CTA Bilaterally, On BiPap Gastrointestinal: Yes: Normal Bowel Sounds, Distention Edema: LLE: Trace, RLE: Trace Integumentary: Yes: Other (no erythema or induration at pacemaker site) Neurological: Yes: Alert Labs: CBC, BMP 12/26/18 05:53 12/26/18 05:53 INR, PTT INR 1.22 (0.83-1.09) H 12/23/18 12:55 Impression/Plan Impression/Plan: Mr. Hogan is an 88y/o male with BPH, klebsiella positive UTI treated with Ceftriaxone and Keflex (10/2018), urinary retention (urinary catheter placed), and CKD who presents from [facility] with hypotension and a-fib with RVR post- hypertensive medication administration. Leukocytosis borderline normal. He has been afebrile. Cr 2.1. First blood cultures positive for staph aureus. Per chart, pacemaker generator replacement done in September 2018 at [facility]. Pt denies tenderness to palpation at site. No erythema or shoulder pain. TTE negative for vegetations. UA positive for leuk esterase, blood, WBCs, and bacteria. Urine cx contaminated. #septic shock 2/2 staph aureus bacteremia #CARLOS -nafcillin 2g Q4H -repeat blood cultures pending -CBC Visit type - Emergency Visit Emergency Visit: Yes ED Registration Date: 12/23/18 Care time: The patient presented to the Emergency Department on the above date and was hospitalized for further evaluation of their emergent condition. - New Patient This patient is new to me today: No - Critical Care Critical Care patient: Yes Total Critical Care Time (in minutes): 35 Critical Care Statement: The care of this patient involved high complexity decision making to prevent further life threatening deterioration of the patient 's condition and/or to evaluate & treat vital organ system(s) failure or risk of failure. - Discharge Referral Referred to [facility] No ATTENDING PHYSICIAN STATEMENT I saw and evaluated the patient. I reviewed the resident's note and discussed the case with the resident. I agree with the resident's findings and plan as documented. SUBJECTIVE: OBJECTIVE: ASSESSMENT AND PLAN:
--- NOTE | 2018-12-26 23:02 | PN ---
Teaching Attending Note Name of Resident: Jamila Monae ATTENDING PHYSICIAN STATEMENT I saw and evaluated the patient. I reviewed the resident's note and discussed the case with the resident. I agree with the resident's findings and plan as documented. SUBJECTIVE: OBJECTIVE: ASSESSMENT AND PLAN: MSSA BACTEREMIA R/O ENDOCARDITIS RENAL FAILURE CONTINUE NAFCILLIN AWAIT REPEAT BC
[2018-12-27] MEDS: NAFCILLIN - 2 GM in DEXTROSE 5%-WATER - 100 ML IVPB SCH ×3 (01:13→09:46)
[2018-12-27] MEDS: HEPARIN - 25,000 UNIT in SODIUM CHLORIDE 495 ML IV SCH (04:09)
[2018-12-27] MEDS: AMIODARONE IN DEXTROSE,ISO-OSM 360 MG/200 ML BAG IVPB SCH (04:11)
[2018-12-27] MEDS: LEVOTHYROXINE NA 50 MCG TABLET (FP) PO SCH (06:36)
[2018-12-27 07:19] LABS: HEMATOCRIT 34.9 % (35.4-49); HEMOGLOBIN 11.3 GM/dL (11.7-16.9); MCHC 32.5 g/dl (32.0-35.9); MEAN CELL VOLUME 98.6 fl (80-96); MEAN PLT VOLUME 11.2 fl (7.5-11.1); PLATELET COUNT 168 K/MM3 (134-434); RBC 3.54 M/mm3 (4.00-5.60); RDW 14.8 % (11.9-15.9)
[2018-12-27 07:49] LABS: ALBUMIN 1.7 g/dl (3.4-5.0); BILIRUBIN,TOTAL 3.6 mg/dL (0.2-1); BLOOD UREA NITROGEN 51.9 mg/dL (7-18); CALCIUM 8.9 mg/dL (8.5-10.1); CREATININE 3.7 mg/dL (0.55-1.3); MAGNESIUM 2.5 mg/dL (1.8-2.4); PHOSPHOROUS 4.6 mg/dL (2.5-4.9); POTASSIUM 4.9 mmol/L (3.5-5.1); TOT PROT 5.7 g/dl (6.4-8.2)
[2018-12-27] MEDS: ALBUTEROL SO4 2.5/IPRATROPIUM 0.5 INH SOL 3 ML VIAL.NEB. NEB SCH ×4 (08:30→20:09)
[2018-12-27] MEDS ORDERED: PT OWN MED DRAWER 7, Y5N ONE ×2 (09:33→21:49)
[2018-12-27] MEDS: levETIRAcetam 500 MG/5 ML INJECTION VIAL IVPB SCH ×2 (09:46→21:47)
[2018-12-27] MEDS: SODIUM CHLORIDE 1,000 ML IV SCH (09:46)
--- NOTE | 2018-12-27 10:41 | PN ---
Progress Note (short form) - Note Progress Note: 88 y/o male seen in ICU. Appears comfortable Denies pain Vital Signs Period Temp Pulse Resp BP Sys/Currie Pulse Ox Last 24 Hr 97.1 F-97.4 F 88-109 22-40 91-130/41-66 90-96 CBC, BMP 12/27/18 05:30 12/27/18 05:30 HEENT- NL Neck- Trachea midline Lungs- Scattered rhonchi Heart- S1/S2 Abd- soft, nt - nelson intact- urine yellow and clear Ext- No LE edema Active Medications Albuterol/Ipratropium (Duoneb -) 1 amp NEB RQID SHEEBA Last Admin: 12/27/18 08:30 Dose: 1 amp Heparin Sodium (Porcine) (Heparin -) 5,000 unit IVPUSH PRN PRN PRN Reason: APTT (SECONDS) <40 Last Admin: 12/25/18 01:22 Dose: 5,000 unit Heparin Sodium (Porcine) (Heparin -) 1,000 unit IVPUSH PRN PRN PRN Reason: APTT (SECONDS) 40-49 Last Admin: 12/26/18 08:50 Dose: 1,000 unit Amiodarone HCl/Dextrose (Nexterone 360 Mg/200 Ml Bag) 360 mg in 200 mls @ 16.667 mls/hr IVPB ASDIR SHEEBA; Protocol Last Admin: 12/27/18 04:11 Dose: 16.667 mls/hr Heparin Sodium (Porcine) 25, (000 unit/ Sodium Chloride) 500 mls @ 20 mls/hr IV TITR SHEEBA; Protocol Last Admin: 12/27/18 04:09 Dose: 1,550 unit/hr, 31 mls/hr Nafcillin Sodium 2 gm/ (Dextrose) 100 mls @ 100 mls/hr IVPB Q4H-IV SHEEBA; Protocol Last Admin: 12/27/18 09:46 Dose: 100 mls/hr Sodium Chloride (Normal Saline -) 1,000 mls @ 42 mls/hr IV ASDIR SHEEBA Last Admin: 12/27/18 09:46 Dose: 42 mls/hr Levetiracetam (Keppra Injection -) 500 mg IVPB BID SHEEBA Last Admin: 12/27/18 09:46 Dose: 500 mg Levothyroxine Sodium (Synthroid -) 50 mcg PO DAILY@0700 [facility] Last Admin: 12/27/18 06:36 Dose: 50 mcg Morphine Sulfate (Morphine Sulfate) 2 mg IVPUSH Q4H PRN PRN Reason: PAIN LEVEL 6-10 Last Admin: 12/26/18 22:29 Dose: 2 mg Assmt / plan # Septic shock / lactic acidosis - ? source MSSA bacterimia blood c/s repeated appreciate ID follow up IV fluids / continue norepi taper as tolerated / CCU monitoring ID consult / CC consult / nephrology consult # Obstructive uropathy similar event on last hospitalization ( ARF due to obstruction ) nelson in place consult - was pending TURP # A fib - admitted with RVR (2/2 AKR / Obs uropathy /septic shock) Continue Amiodarone and UFH drip + bacterimia ?? repeat cultures pending Appreciate Cardio # AKF continue IV fluids / trend renal function Nephrology consult appreciated Problem List - Problems (1) Acute renal failure Code(s): N17.9 - ACUTE KIDNEY FAILURE, UNSPECIFIED Qualifiers: Acute renal failure type: unspecified Qualified Code(s): N17.9 - Acute kidney failure, unspecified (2) Atrial fibrillation with RVR Code(s): I48.91 - UNSPECIFIED ATRIAL FIBRILLATION (3) BPH (benign prostatic hyperplasia) Code(s): N40.0 - BENIGN PROSTATIC HYPERPLASIA WITHOUT LOWER URINRY TRACT SYMP (4) H/O: CVA (cerebrovascular accident) Code(s): Z86.73 - PRSNL HX OF TIA (TIA), AND CEREB INFRC W/O RESID DEFICITS (5) Hypertension Code(s): I10 - ESSENTIAL (PRIMARY) HYPERTENSION (6) Hypothyroid Code(s): E03.9 - HYPOTHYROIDISM, UNSPECIFIED (7) Urinary retention due to benign prostatic hyperplasia Code(s): N40.1 - BENIGN PROSTATIC HYPERPLASIA WITH LOWER URINARY TRACT SYMP; R33.8 - OTHER RETENTION OF URINE
--- NOTE | 2018-12-27 11:55 | PN ---
Teaching Attending Note Name of Resident: Angela Hunt ATTENDING PHYSICIAN STATEMENT I saw and evaluated the patient. I reviewed the resident's note and discussed the case with the resident. I agree with the resident's findings and plan as documented. SUBJECTIVE: Pt seen and examined in the ICU. Remains on BiPAP, oxygenating better but still tachypneic. Abdomen getting distended. Mental status improving. CXR showing basilar infiltrates. OBJECTIVE: Vital Signs Period Temp Pulse Resp BP Sys/Currie Pulse Ox Last 24 Hr 97.1 F-97.4 F 88-109 22-40 91-130/41-66 90-95 Intake & Output 12/24/18 12/25/18 12/26/18 12/27/18 23:59 23:59 23:59 23:59 Intake Total 4534.0 4022.4 4093.6 532 Output Total 2500 1600 700 100 Balance 2034.0 2422.4 3393.6 432 Weight 84.958 kg 87.09 kg 87.09 kg 85.899 kg Gen: less tachypneic on BiPAP Heart: RRR Lung: decreased breath sounds at the bases Abd: softly distended, nontender Ext: + edema CBC, BMP 12/27/18 05:30 12/27/18 05:30 Active Medications Albuterol/Ipratropium (Duoneb -) 1 amp NEB RQID SHEEBA Last Admin: 12/27/18 08:30 Dose: 1 amp Heparin Sodium (Porcine) (Heparin -) 5,000 unit IVPUSH PRN PRN PRN Reason: APTT (SECONDS) <40 Last Admin: 12/25/18 01:22 Dose: 5,000 unit Heparin Sodium (Porcine) (Heparin -) 1,000 unit IVPUSH PRN PRN PRN Reason: APTT (SECONDS) 40-49 Last Admin: 12/26/18 08:50 Dose: 1,000 unit Amiodarone HCl/Dextrose (Nexterone 360 Mg/200 Ml Bag) 360 mg in 200 mls @ 16.667 mls/hr IVPB ASDIR SHEEBA; Protocol Last Admin: 12/27/18 04:11 Dose: 16.667 mls/hr Heparin Sodium (Porcine) 25, (000 unit/ Sodium Chloride) 500 mls @ 20 mls/hr IV TITR SHEEBA; Protocol Last Admin: 12/27/18 04:09 Dose: 1,550 unit/hr, 31 mls/hr Nafcillin Sodium 2 gm/ (Dextrose) 100 mls @ 100 mls/hr IVPB Q4H-IV SHEEBA; Protocol Last Admin: 12/27/18 09:46 Dose: 100 mls/hr Sodium Chloride (Normal Saline -) 1,000 mls @ 42 mls/hr IV ASDIR [facility] Last Admin: 12/27/18 09:46 Dose: 42 mls/hr Levetiracetam (Keppra Injection -) 500 mg IVPB BID [facility] Last Admin: 12/27/18 09:46 Dose: 500 mg Levothyroxine Sodium (Synthroid -) 50 mcg PO DAILY@0700 [facility] Last Admin: 12/27/18 06:36 Dose: 50 mcg Morphine Sulfate (Morphine Sulfate) 2 mg IVPUSH Q4H PRN PRN Reason: PAIN LEVEL 6-10 Last Admin: 12/26/18 22:29 Dose: 2 mg ASSESSMENT AND PLAN: Acute Hypoxic Respiratory Failure MSSA Bacteremia UTI r/o Endocarditis Septic Shock Lactic Acidosis Acute on Chronic Renal Failure Atrial Fibrillation with RVR h/o PPM Hypothyroidism Anemia - attempt HFOT due to abdominal distention - continue antibiotics, d/w ID broadening coverage to cover aspiration - f/u pending cultures - ZENY if persistently bacteremic - IVF - monitor urine output, creatinine - amiodarone - continue anticoagulation - O2 to keep SpO2 >90% - continue ICU monitoring - prognosis guarded critical care time spent in reviewing chart, evaluating patient and formulating plan 35 min
--- NOTE | 2018-12-27 12:29 | PN ---
Progress Note (short form) - Note Progress Note: s:no chest pain, palps, dizziness or sob on bipap, of pressors now Current Medications Generic Name Dose Route Start Last Admin Trade Name Freq PRN Reason Stop Dose Admin Albuterol/Ipratropium 1 amp 12/26/18 12:00 12/27/18 12:18 Duoneb - NEB 1 amp RQID SHEEBA Administration Heparin Sodium (Porcine) 5,000 unit 12/24/18 08:34 12/25/18 01:22 Heparin - IVPUSH 5,000 unit PRN PRN Administration APTT (SECONDS) <40 Heparin Sodium (Porcine) 1,000 unit 12/24/18 08:34 12/26/18 08:50 Heparin - IVPUSH 1,000 unit PRN PRN Administration APTT (SECONDS) 40-49 Amiodarone HCl/Dextrose 360 mg in 200 mls @ 16.667 mls/hr 12/23/18 13:30 04:11 Nexterone 360 Mg/200 Ml Bag IVPB 16.667 mls/hr ASDIR SHEEBA Administration Protocol 0.5 MG/MIN Heparin Sodium (Porcine) 25, 500 mls @ 20 mls/hr 12/23/18 13:30 12/27/18 04: 09 000 unit/ Sodium Chloride IV 1,550 unit/hr TITR SHEEBA 31 mls/hr Administration Protocol 1,000 UNIT/HR Nafcillin Sodium 2 gm/ 100 mls @ 100 mls/hr 12/25/18 14:00 12/27/18 09:46 Dextrose IVPB 100 mls/hr Q4H-IV SHEEBA Administration Protocol Sodium Chloride 1,000 mls @ 42 mls/hr 12/27/18 09:15 12/27/18 09:46 Normal Saline - IV 42 mls/hr ASDIR SHEEBA Administration Levetiracetam 500 mg 12/23/18 22:00 12/27/18 09:46 Keppra Injection - IVPB 500 mg BID SHEEBA Administration Levothyroxine Sodium 50 mcg 12/25/18 07:00 12/27/18 06:36 Synthroid - PO 50 mcg DAILY@0700 SHEEBA Administration Morphine Sulfate 2 mg 12/26/18 18:11 12/26/18 22:29 Morphine Sulfate IVPUSH 2 mg Q4H PRN Administration PAIN LEVEL 6-10 Vital Signs Temp 97.4 F L 12/27/18 04:00 Pulse 88 12/27/18 08:00 Resp 28 H 12/27/18 09:00 BP 130/49 L 12/27/18 08:00 Pulse Ox 94 L 12/27/18 09:00 Intake & Output 12/26/18 12/27/18 12/27/18 23:59 11:59 23:59 Intake Total 2098 532 Output Total 500 100 Balance 1598 432 Weight 189 lb 6 oz Intake: IV 658 332 Amiodarone 64 112 Heparin - 25,000 Unit In 468 220 Normal Saline - 495 ml @ 1,000 UNIT/HR 20 mls/hr IV TITR SHEEBA Rx#: [id number] Normal Saline - 1,000 ml 126 @ 42 mls/hr IV ASDIR SHEEBA Rx#:[id number] IVPB 1200 200 Oral 240 Output: Urine 500 100 Nelson 500 100 Other: Voiding Method Indwelling Catheter Indwelling Catheter Bowel Movement No No Weight Measurement Method [facility] Constitutional: Yes: Well Nourished, No Distress Eyes: No: Sclera Icterus Respiratory: Yes: diffuse rhonchi, dec breath sounds at bases Gastrointestinal: Yes: Normal Bowel Sounds. No: Distention, Hepatomegaly, Palpable Mass, Tenderness Cardiovascular: Yes: Regular Rate and Rhythm Chest: pocket site, no erythema, tenderness or fluctuance JVD: No Carotid Bruit: No PMI: Non-Displaced Heart Sounds: Yes: S1, S2. No: Gallop Murmur: No: Systolic Murmur, Diastolic Murmur Extremities: No: Cool, Cyanosis Edema: No Peripheral Pulses: 2+ Left Carotid, 2+ Right Carotid, 2+ Left Doralis Pedis, 2+ Right Dorsalis Pedis Integumentary: No: Jaundice Neurological: Yes: Lethargy. No: Seizure Psychiatric: No: Agitated Laboratory Last Values WBC 26.0 K/mm3 (4.0-10.0) H 12/27/18 05:30 RBC 3.54 M/mm3 (4.00-5.60) L 12/27/18 05:30 Hgb 11.3 GM/dL (11.7-16.9) L 12/27/18 05:30 Hct 34.9 % (35.4-49) L 12/27/18 05:30 MCV 98.6 fl (80-96) H 12/27/18 05:30 MCH 32.0 pg (25.7-33.7) 12/27/18 05:30 MCHC 32.5 g/dl (32.0-35.9) 12/27/18 05:30 RDW 14.8 % (11.9-15.9) 12/27/18 05:30 Plt Count 168 K/MM3 (134-434) D 12/27/18 05:30 MPV 11.2 fl (7.5-11.1) H 12/27/18 05:30 Absolute Neuts (auto) 9.3 K/mm3 (1.5-8.0) H 12/25/18 06:00 Neutrophils % 86.4 % (42.8-82.8) H 12/25/18 06:00 Neutrophils % (Manual) 81.8 % (42.8-82.8) D 12/24/18 05:30 Band Neutrophils % 9.1 % 12/24/18 05:30 Lymphocytes % 6.3 % (8-40) L D 12/25/18 06:00 Lymphocytes % (Manual) 7.1 % (8-40) L D 12/24/18 05:30 Monocytes % 7.0 % (3.8-10.2) 12/25/18 06:00 Monocytes % (Manual) 2 % (3.8-10.2) L 12/24/18 05:30 Eosinophils % 0.3 % (0-4.5) D 12/25/18 06:00 Eosinophils % (Manual) 0.0 % (0-4.5) 12/24/18 05:30 Basophils % 0.0 % (0-2.0) 12/25/18 06:00 Basophils % (Manual) 0.0 % (0-2.0) 12/24/18 05:30 Myelocytes % (Man) 0 % (0-2) 12/24/18 05:30 Promyelocytes % (Man) 0 % (0-2) 12/24/18 05:30 Blast Cells % (Manual) 0 % (0-0) 12/24/18 05:30 Nucleated RBC % 0 % (0-0) 12/25/18 06:00 Metamyelocytes 0 % (0-2) D 12/24/18 05:30 Hypochromia 0 12/23/18 11:15 Dohle Bodies 1+ 12/24/18 05:30 Platelet Estimate Decreased 12/24/18 05:30 Polychromasia 1+ 12/23/18 11:15 Poikilocytosis 1+ 12/23/18 11:15 Basophilic Stippling 1+ 12/23/18 11:15 Anisocytosis 2+ 12/23/18 11:15 Microcytosis 2+ 12/23/18 11:15 Macrocytosis 0 12/23/18 11:15 Spherocytes 1+ 12/23/18 11:15 Charley Cells 1+ 12/23/18 11:15 PT with INR 14.40 SEC (9.7-13.0) H 12/23/18 12:55 INR 1.22 (0.83-1.09) H 12/23/18 12:55 PTT (Actin FS) 63.8 SECONDS (25.2-36.5) H 12/27/18 05:30 Sodium 136 mmol/L (136-145) 12/27/18 05:30 Potassium 4.9 mmol/L (3.5-5.1) 12/27/18 05:30 Chloride 103 mmol/L (98-107) 12/27/18 05:30 Carbon Dioxide 17 mmol/L (21-32) L 12/27/18 05:30 Anion Gap 16 MMOL/L (8-16) 12/27/18 05:30 BUN 51.9 mg/dL (7-18) H 12/27/18 05:30 Creatinine 3.7 mg/dL (0.55-1.3) H 12/27/18 05:30 Est GFR (CKD-EPI)AfAm 15.83 12/27/18 05:30 Est GFR (CKD-EPI)NonAf 13.66 12/27/18 05:30 Random Glucose 127 mg/dL (74-106) H 12/27/18 05:30 Lactic Acid 1.7 mmol/L (0.4-2.0) 12/24/18 05:30 Calcium 8.9 mg/dL (8.5-10.1) 12/27/18 05:30 Phosphorus 4.6 mg/dL (2.5-4.9) 12/27/18 05:30 Magnesium 2.5 mg/dL (1.8-2.4) H 12/27/18 05:30 Total Bilirubin 3.6 mg/dL (0.2-1) H D 12/27/18 05:30 AST 30 U/L (15-37) 12/27/18 05:30 ALT 19 U/L (13-61) 12/27/18 05:30 Alkaline Phosphatase 96 U/L (45-117) 12/27/18 05:30 Creatine Kinase 677 U/L (26-308) H 12/23/18 10:45 Creatine Kinase Index 0.5 % (0.0-5.0) 12/23/18 10:45 CK-MB (CK-2) 3.8 ng/mL (0.5-3.6) H 12/23/18 10:45 Troponin I 0.03 ng/ml (0.00-0.05) 12/23/18 10:45 B-Natriuretic Peptide 5815.3 pg/ml (5-450) H 12/23/18 10:45 Total Protein 5.7 g/dl (6.4-8.2) L 12/27/18 05:30 Albumin 1.7 g/dl (3.4-5.0) L 12/27/18 05:30 TSH 0.37 uIU/ml (0.358-3.74) D 12/23/18 10:45 Urine Color Yellow 12/23/18 15:21 Urine Appearance Cloudy 12/23/18 15:21 Urine pH 5.5 (5.0-8.0) 12/23/18 15:21 Ur Specific Gipsy 1.014 (1.010-1.035) 12/23/18 15:21 Urine Protein 1+ (NEGATIVE) H 12/23/18 15:21 Urine Glucose (UA) Negative (NEGATIVE) 12/23/18 15: Urine Ketones Negative (NEGATIVE) 12/23/18 15:21 Urine Blood 3+ (NEGATIVE) H 12/23/18 15:21 Urine Nitrite Negative (NEGATIVE) 12/23/18 15:21 Urine Bilirubin Negative (NEGATIVE) 12/23/18 15:21 Urine Urobilinogen 0.2 mg/dL (0.2-1.0) 11/10/19 15:21 Ur Leukocyte Esterase 3+ (NEGATIVE) H 12/23/18 15:21 Urine WBC (Auto) 105 /hpf (0-5) 12/23/18 15:21 Urine RBC (Auto) 23 /hpf (0-4) 12/23/18 15:21 Urine Casts (Auto) 1 /lpf (0-8) 12/23/18 15:21 U Epithel Cells (Auto) 0 /HPF (0-5/HPF) 12/23/18 15:21 Urine Bacteria (Auto) 878.1 /hpf (NEGATIVE) 12/23/18 15:21 Ur Random Creatinine 138.0 mg/dL (30-150) 12/23/18 15:10 Ur Random Sodium 55 MMOL/L (40-220) 12/23/18 15:10 Ur Random Potassium 38.0 MMOL/L (25-125) 12/23/18 15:10 Ur Random Chloride 58 MMOL/L (110-250) L 12/23/18 15:10 Random Vancomycin 7.8 ug/ml (18-26) L 12/25/18 06:30 Blood Type AB POSITIVE 12/23/18 12:05 Antibody Screen Negative 12/23/18 12:05 Assessment/Plan ECG: rapid AF, mild NSST-Ts likely rate related CXR reviewed Echo 07/01: TDS. nl LVSF, probably normal RV. mild AI. mild-mod MR/TR Renal/bladder sono: no hydro, ? 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 clot, vs other echo 12/2018 nl LV, RV not well visualized, grade II diastolic dysfunction, mild MR, mild TR, PASP >34 mmHg, mild AR tele:sinus, PVCs est cct 35 mins septic shock: -lactate elevated initiatlly--cont IVF -BCX +MSSA -pt is s/p PM generator change at [facility] (dr carbajal) on 10/11/18- pocket site no erythema, tenderness, fluctuance, less likely pocket infection. per Dr. Bassett d /w EP continue abx for now if recurrent fevers on abx can consider ZENY. so far repeat bld cx ngtd. -now off pressors CARLOS, urinary retention with indwelling nelson: -plan per crit care, renal/ PAF, rapid HR: -norepi weaned off, remains in sinus on amio gtt, continue for now -cont UFH gtt (hold eliquis in case of need for invasive procedures) PPM, s/p generator change recently (Dr. Martin, [facility]): -as above
[2018-12-27] MEDS: AMIODARONE HCL 200 MG TABLET (FP) PO SCH (13:42)
[2018-12-27] MEDS: APIXABAN 2.5 MG TABLET PO SCH (13:42)
--- NOTE | 2018-12-27 14:13 | PN ---
Physical Exam: SUBJECTIVE: Patient seen and examined. No events overnight. Patient is confused and thinks he is flying to [place] soon. Denies any pain. OBJECTIVE: Vital Signs Period Temp Pulse Resp BP Sys/Currie Pulse Ox Last 24 Hr 97.1 F-97.4 F 86-109 22-40 91-130/40-66 90-95 GENERAL: awake, alert, confused by AAOx3 HEAD: Normal with no signs of trauma. EYES: PERRL, EOMI ENT: dry mucous membranes NECK: Trachea midline, full range of motion, supple. LUNGS: reduced breath sounds bilaterally, no accessory muscle use HEART: tachycardic ABDOMEN: distended abdomen, mild RLQ tenderness to palpation EXTREMITIES: 2+ pulses, warm, well-perfused, no edema. NEUROLOGICAL: normal speech Laboratory Results - last 24 hr 12/26/18 12/26/18 12/27/18 14:50 20:30 05:30 WBC 26.0 H RBC 3.54 L Hgb 11.3 L Hct 34.9 L MCV 98.6 H MCH 32.0 MCHC 32.5 RDW 14.8 Plt Count 168 D MPV 11.2 H PTT (Actin FS) 48.3 H 55.0 H Sodium Potassium Chloride Carbon Dioxide Anion Gap BUN Creatinine Est GFR (CKD-EPI)AfAm Est GFR (CKD-EPI)NonAf Random Glucose Calcium Phosphorus Magnesium Total Bilirubin AST ALT Alkaline Phosphatase Total Protein Albumin Ur Random Creatinine U Random Total Protein Ur Random Sodium Ur Random Urea Nitrogn 12/27/18 12/27/18 12/27/18 05:30 05:30 13:20 WBC RBC Hgb Hct MCV MCH MCHC RDW Plt Count MPV PTT (Actin FS) 63.8 H Sodium 136 Potassium 4.9 Chloride 103 Carbon Dioxide 17 L Anion Gap 16 BUN 51.9 H Creatinine 3.7 H Est GFR (CKD-EPI)AfAm 15.83 Est GFR (CKD-EPI)NonAf 13.66 Random Glucose 127 H Calcium 8.9 Phosphorus 4.6 Magnesium 2.5 H Total Bilirubin 3.6 H D AST 30 ALT 19 Alkaline Phosphatase 96 Total Protein 5.7 L Albumin 1.7 L Ur Random Creatinine 71.0 U Random Total Protein 411.0 H Ur Random Sodium 29 L Ur Random Urea Nitrogn 231 L Active Medications Generic Name Dose Route Start Last Admin Trade Name Freq PRN Reason Stop Dose Admin Albuterol/Ipratropium 1 amp 12/26/18 12:00 12/27/18 12:18 Duoneb - NEB 1 amp RQID SHEEBA Administration Amiodarone HCl 200 mg 12/27/18 13:00 12/27/18 13:42 Cordarone - PO 200 mg DAILY SHEEBA Administration Apixaban 2.5 mg 12/27/18 12:45 12/27/18 13:42 Eliquis - PO 2.5 mg DAILY SHEEBA Administration Cefazolin Sodium 1 gm 12/27/18 13:00 Ancef - IVPUSH Q8H SHEEBA Sodium Chloride 1,000 mls @ 42 mls/hr 12/27/18 09:15 12/27/18 09:46 Normal Saline - IV 42 mls/hr ASDIR SHEEBA Administration Levetiracetam 500 mg 12/23/18 22:00 12/27/18 09:46 Keppra Injection - IVPB 500 mg BID SHEEBA Administration Levothyroxine Sodium 50 mcg 12/25/18 07:00 12/27/18 06:36 Synthroid - PO 50 mcg DAILY@0700 SHEEBA Administration Morphine Sulfate 2 mg 12/26/18 18:11 12/26/18 22:29 Morphine Sulfate IVPUSH 2 mg Q4H PRN Administration PAIN LEVEL 6-10 ASSESSMENT/PLAN: Patient is an 88 yo M with a PMHx of HTN, hx TIA, dysphagia, PPM, BPH (off eliquis, scheduled for TURP), recent admission for UTI, presented to the ED from [facility] because of weakness, hypotension, and lethargy. Admitted for uncontrolled Afib w RVR and Septic shock 2/2 to UTI. #Neuro - AOx3, monitor - continue keppra #Cardio - hypotension 2/2 septic shock - R IJ CVC placed 12/23 for pressors - no longer on levophed - amiodorone drip discontinued, started on PO Amiodorone - Heparin drip discontinued, started on Eliquis home dose - Echo 12/24 showed normal EF. Mild tricuspid and Aortic regurg. No vegetations seen. - pt is s/p PM generator change at [facility] (Dr. De La Cruz) on 10/11/18- pocket site without erythema, tenderness, fluctuance. less likely pocket infection. Per Dr. Bassett d/w EP continue abx for now. If recurrent fevers on abx can consider ZENY - appreciate cards recs #ID - Septic Shock 2/2 UTI - leukocytosis, WBC from 14 -> 10.7 -> 26 - discontinue Nafcillin. - Started on Cefazolin - 2 sets of blood cx +MSSA, 3rd set pending organism - appreciate ID recs #Pulmonary - on BIPAP - keep spO2 >90% #GI - chopped diet - KUB ordered for evaluation of abdominal distension # - CARLOS likely 2/2 obstructive uropathy, hx BPH - downtrending Cr 3.6 to 2.1 - originally scheduled for TURP but not a candidate at this time - Kidney/bladder/abdominal US 12/23 showed partially distended urinary bladder. Masslike density within the urinary bladder measuring 4.8cm, Differential diagnosis includes a large blood clot versus a urinary blader mass/neoplasm - Perez in place - I/O - appreciate renal recs #Endocrine - hx of hypothyroidism - Continue Synthroid #Ppx - Eliquis - no GI ppx #FEN - NS @42mls/hr - hypoK - repleted - chopped diet #Dispo - continue ICU monitoring - Patient is DNR/DNI Visit type - Emergency Visit Emergency Visit: Yes ED Registration Date: 12/23/18 Care time: The patient presented to the Emergency Department on the above date and was hospitalized for further evaluation of their emergent condition. - New Patient This patient is new to me today: No - Critical Care Critical Care patient: Yes Total Critical Care Time (in minutes): 36 Critical Care Statement: The care of this patient involved high complexity decision making to prevent further life threatening deterioration of the patient 's condition and/or to evaluate & treat vital organ system(s) failure or risk of failure. ATTENDING PHYSICIAN STATEMENT I saw and evaluated the patient. I reviewed the resident's note and discussed the case with the resident. I agree with the resident's findings and plan as documented. SUBJECTIVE: OBJECTIVE: ASSESSMENT AND PLAN:
[2018-12-27 14:18] LABS: URINE APPEARANCE CLOUDY; URINE COLOR YELLOW
[2018-12-27 14:19] LABS: PH,URINE 5.5 (5.0-8.0); URINE BILIRUBIN NEGATIVE (NEGATIVE); URINE KETONE NEGATIVE (NEGATIVE)
[2018-12-27 14:21] LABS: URINE PROTEIN TRACE (NEGATIVE)
[2018-12-27 14:22] LABS: URINE GLUCOSE (UA) TRACE (NEGATIVE); URINE LEUK ESTERASE MODERATE (NEGATIVE); URINE NITRITE NEGATIVE (NEGATIVE); URINE RBC 9.3 /hpf (0-4); URINE UROBILINOGEN 0.2 mg/dL (0.2-1.0)
[2018-12-27 14:23] LABS: EPI CELLS 32.9 /HPF (0-5/HPF); HYALINE CASTS 267.84 /lpf (0-8); URINE BACTERIA 15 /hpf (NEGATIVE); URINE WBC 7.4 /hpf (0-5)
[2018-12-27] MEDS: CEFAZOLIN 1 GM PUSH 1 GM/10 ML SYRINGE IVPUSH SCH ×2 (15:06→21:51)
--- NOTE | 2018-12-27 16:06 | PN ---
Progress Note, Physician History of Present Illness: Pt seen and examined at bedside. He remains in the ICU. He is on bipap. - Current Medication List Current Medications: Active Medications Albuterol/Ipratropium (Duoneb -) 1 amp NEB RQID [facility] Last Admin: 12/27/18 12:18 Dose: 1 amp Amiodarone HCl (Cordarone -) 200 mg PO DAILY [facility] Last Admin: 12/27/18 13:42 Dose: 200 mg Apixaban (Eliquis -) 2.5 mg PO DAILY [facility] Last Admin: 12/27/18 13:42 Dose: 2.5 mg Cefazolin Sodium (Ancef -) 1 gm IVPUSH Q8H [facility] Last Admin: 12/27/18 15:06 Dose: 1 gm Sodium Chloride (Normal Saline -) 1,000 mls @ 42 mls/hr IV ASDIR [facility] Last Admin: 12/27/18 09:46 Dose: 42 mls/hr Levetiracetam (Keppra Injection -) 500 mg IVPB BID [facility] Last Admin: 12/27/18 09:46 Dose: 500 mg Levothyroxine Sodium (Synthroid -) 50 mcg PO DAILY@0700 [facility] Last Admin: 12/27/18 06:36 Dose: 50 mcg Morphine Sulfate (Morphine Sulfate) 2 mg IVPUSH Q4H PRN PRN Reason: PAIN LEVEL 6-10 Last Admin: 12/26/18 22:29 Dose: 2 mg - Objective Vital Signs: Vital Signs Temperature 97.3 F L 12/27/18 13:51 Pulse Rate 86 12/27/18 13:51 Respiratory Rate 26 H 12/27/18 13:51 Blood Pressure 101/40 L 12/27/18 12:00 O2 Sat by Pulse Oximetry (%) 94 L 12/27/18 09:00 Constitutional: Yes: Calm Eyes: Yes: Conjunctiva Clear HENT: Yes: Atraumatic Cardiovascular: Yes: S1, S2 Respiratory: Yes: On BiPap Gastrointestinal: Yes: Distention Genitourinary: Yes: Perez Present Musculoskeletal: Yes: Muscle Weakness Edema: Yes Edema: LLE: 1+, RLE: 1+ Neurological: Yes: Confusion Labs: CBC, BMP 12/27/18 05:30 12/27/18 05:30 INR, PTT INR 1.22 (0.83-1.09) H 12/23/18 12:55 - ....Imaging Chest X-ray: Report Reviewed Problem List - Problems (1) Acute renal failure Code(s): N17.9 - ACUTE KIDNEY FAILURE, UNSPECIFIED Qualifiers: Acute renal failure type: unspecified Qualified Code(s): N17.9 - Acute kidney failure, unspecified (2) Atrial fibrillation with RVR Code(s): I48.91 - UNSPECIFIED ATRIAL FIBRILLATION Assessment/Plan Current Medications Generic Name Dose Route Start Last Admin Trade Name Freq PRN Reason Stop Dose Admin Albuterol/Ipratropium 1 amp 12/26/18 12:00 12/27/18 12:18 Duoneb - NEB 1 amp RQID SHEEBA Administration Amiodarone HCl 200 mg 12/27/18 13:00 12/27/18 13:42 Cordarone - PO 200 mg DAILY SHEEBA Administration Apixaban 2.5 mg 12/27/18 12:45 12/27/18 13:42 Eliquis - PO 2.5 mg DAILY SHEEBA Administration Cefazolin Sodium 1 gm 12/27/18 13:00 12/27/18 15:06 Ancef - IVPUSH 1 gm Q8H SHEEBA Administration Sodium Chloride 1,000 mls @ 42 mls/hr 12/27/18 09:15 12/27/18 09:46 Normal Saline - IV 42 mls/hr ASDIR SHEEBA Administration Levetiracetam 500 mg 12/23/18 22:00 12/27/18 09:46 Keppra Injection - IVPB 500 mg BID SHEEBA Administration Levothyroxine Sodium 50 mcg 12/25/18 07:00 12/27/18 06:36 Synthroid - PO 50 mcg DAILY@0700 SHEEBA Administration Morphine Sulfate 2 mg 12/26/18 18:11 12/26/18 22:29 Morphine Sulfate IVPUSH 2 mg Q4H PRN Administration PAIN LEVEL 6-10 Impression 1. CARLOS 2. rapid a-fib 3. hypotension 4. sepsis 5. bacteremia 6. hypothyroidism 7. epilepsy Plan - renal function worse - discussed with ID, nafcillin changed to cefazolin - repeat labs in am - monitor urine output - monitor volume status - maintain map 65 - monitor lytes
[2018-12-27] MEDS ORDERED: VANCOMYCIN 1 GRAM (PRE-DOCKED) 1,000 MG/250 ML BAG IVPB ONE (17:01)
[2018-12-27] MEDS ORDERED: NOREPINEPHRINE BITARTRATE 4 MG/4 ML ML IV ONE (17:06)
[2018-12-27] MEDS ORDERED: NOREPINEPHRINE BITARTRATE 8,000 MCG in DEXTROSE 5%-WATER - 492 ML IV SCH (17:15)
--- NOTE | 2018-12-27 18:24 | PN ---
Progress Note, Physician History of Present Illness: LETHARGIC ON BIPAP AFEBRILE REPEAT BC 12/26+ SWITCHED TO CEFAZOLIN IN LIGHT OF WORSENING RENAL FUNCTION (INTERSTITIAL NEPHRITIS?) - Current Medication List Current Medications: Active Medications Albuterol/Ipratropium (Duoneb -) 1 amp NEB RQID [facility] Last Admin: 12/27/18 16:23 Dose: 1 amp Amiodarone HCl (Cordarone -) 200 mg PO DAILY [facility] Last Admin: 12/27/18 13:42 Dose: 200 mg Apixaban (Eliquis -) 2.5 mg PO DAILY [facility] Last Admin: 12/27/18 13:42 Dose: 2.5 mg Cefazolin Sodium (Ancef -) 1 gm IVPUSH Q8H [facility] Last Admin: 12/27/18 15:06 Dose: 1 gm Sodium Chloride (Normal Saline -) 1,000 mls @ 42 mls/hr IV ASDIR [facility] Last Admin: 12/27/18 09:46 Dose: 42 mls/hr Vancomycin HCl (Vancomycin (Pre-Docked)) 1,000 mg in 250 mls @ 166.667 mls/hr IVPB ONCE ONE; Protocol Stop: 12/27/18 18:30 Last Admin: 12/27/18 17:23 Dose: 166.667 mls/hr Norepinephrine Bitartrate 8, (000 mcg/ Dextrose) 500 mls @ 18.75 mls/hr IV TITR [facility]; Protocol Last Admin: 12/27/18 17:23 Dose: 5 mcg/min, 18.75 mls/hr Levetiracetam (Keppra Injection -) 500 mg IVPB BID [facility] Last Admin: 12/27/18 09:46 Dose: 500 mg Levothyroxine Sodium (Synthroid -) 50 mcg PO DAILY@0700 [facility] Last Admin: 12/27/18 06:36 Dose: 50 mcg Morphine Sulfate (Morphine Sulfate) 2 mg IVPUSH Q4H PRN PRN Reason: PAIN LEVEL 6-10 Last Admin: 12/26/18 22:29 Dose: 2 mg - Objective Vital Signs: Vital Signs Temperature 97.3 F L 12/27/18 13:51 Pulse Rate 104 H 12/27/18 17:23 Respiratory Rate 26 H 12/27/18 16:00 Blood Pressure 71/38 L 12/27/18 17:23 O2 Sat by Pulse Oximetry (%) 93 L 12/27/18 16:22 Constitutional: Yes: No Distress Eyes: Yes: Conjunctiva Clear Cardiovascular: Yes: Regular Rate and Rhythm, S1, S2 Respiratory: Yes: CTA Bilaterally Gastrointestinal: Yes: Normal Bowel Sounds, Soft. No: Tenderness Edema: Yes Labs: CBC, BMP 12/27/18 05:30 12/27/18 05:30 INR, PTT INR 1.22 (0.83-1.09) H 12/23/18 12:55 Assessment/Plan MSSA BACTEREMIA ? ENDOCARDITIS RENAL FAILURE CONTINUE CEFAZOLIN REPEAT BC AM IF PERSISTANTLY +BC WILL NEED ZENY
[2018-12-28] MEDS ORDERED: LORazepam 2 MG/ML SDV VIAL ONE (00:04)
[2018-12-28] MEDS: CEFAZOLIN 1 GM PUSH 1 GM/10 ML SYRINGE IVPUSH SCH (04:40)
[2018-12-28] MEDS: SODIUM CHLORIDE 1,000 ML IV SCH ×2 (04:42→09:51)
[2018-12-28] MEDS: LEVOTHYROXINE NA 50 MCG TABLET (FP) PO SCH (06:11)
[2018-12-28 06:24] LABS: HEMATOCRIT 33.7 % (35.4-49); HEMOGLOBIN 11.1 GM/dL (11.7-16.9); MCH 31.9 pg (25.7-33.7); MCHC 32.9 g/dl (32.0-35.9); MEAN CELL VOLUME 96.9 fl (80-96); MEAN PLT VOLUME 10.6 fl (7.5-11.1); PLATELET COUNT 211 K/MM3 (134-434); RBC 3.48 M/mm3 (4.00-5.60); RDW 15.2 % (11.9-15.9); WHITE BLOOD COUNT 23.1 K/mm3 (4.0-10.0)
[2018-12-28 06:54] LABS: ALBUMIN 1.7 g/dl (3.4-5.0); BILIRUBIN,TOTAL 4.4 mg/dL (0.2-1); BLOOD UREA NITROGEN 75.7 mg/dL (7-18); CALCIUM 9.2 mg/dL (8.5-10.1); CREATININE 4.9 mg/dL (0.55-1.3); MAGNESIUM 2.8 mg/dL (1.8-2.4); PHOSPHOROUS 5.6 mg/dL (2.5-4.9); POTASSIUM 4.9 mmol/L (3.5-5.1)
[2018-12-28] MEDS: ALBUTEROL SO4 2.5/IPRATROPIUM 0.5 INH SOL 3 ML VIAL.NEB. NEB SCH ×2 (07:35→11:32)
[2018-12-28 08:38] VITALS: PULSE 90
--- NOTE | 2018-12-28 08:55 | PN ---
Progress Note, Physician Chief Complaint: on CPAP Denies CP or SOB TELE AF 115bpm History of Present Illness: remains on pressors - Current Medication List Current Medications: Active Medications Albuterol/Ipratropium (Duoneb -) 1 amp NEB RQID [facility] Last Admin: 12/27/18 20:09 Dose: 1 amp Amiodarone HCl (Cordarone -) 200 mg PO DAILY [facility] Last Admin: 12/27/18 13:42 Dose: 200 mg Apixaban (Eliquis -) 2.5 mg PO DAILY [facility] Last Admin: 12/27/18 13:42 Dose: 2.5 mg Cefazolin Sodium (Ancef -) 1 gm IVPUSH Q8H [facility] Last Admin: 12/28/18 04:40 Dose: 1 gm Sodium Chloride (Normal Saline -) 1,000 mls @ 42 mls/hr IV ASDIR [facility] Last Admin: 12/28/18 04:42 Dose: 42 mls/hr Norepinephrine Bitartrate 8, (000 mcg/ Dextrose) 500 mls @ 18.75 mls/hr IV TITR [facility]; Protocol Last Admin: 12/27/18 17:23 Dose: 5 mcg/min, 18.75 mls/hr Levetiracetam (Keppra Injection -) 500 mg IVPB BID [facility] Last Admin: 12/27/18 21:47 Dose: 500 mg Levothyroxine Sodium (Synthroid -) 50 mcg PO DAILY@0700 [facility] Last Admin: 12/28/18 06:11 Dose: 50 mcg Morphine Sulfate (Morphine Sulfate) 2 mg IVPUSH Q4H PRN PRN Reason: PAIN LEVEL 6-10 Last Admin: 12/26/18 22:29 Dose: 2 mg - Objective Vital Signs: Vital Signs Temperature 98.1 F 12/28/18 06:00 Pulse Rate 90 12/28/18 08:00 Respiratory Rate 28 H 12/28/18 08:00 Blood Pressure 96/42 L 12/28/18 08:00 O2 Sat by Pulse Oximetry (%) 93 L 12/28/18 04:27 Constitutional: Yes: No Distress Cardiovascular: Yes: Pulse Irregular (no murmurs) Respiratory: Yes: CTA Bilaterally Gastrointestinal: Yes: Soft (NT) Edema: No Neurological: Yes: Alert Labs: CBC, BMP 12/28/18 05:15 12/28/18 06:00 INR, PTT INR 1.22 (0.83-1.09) H 12/23/18 12:55 Microbiology Laboratory Tests 12/25/18 12/27/18 12/28/18 06:30 05:30 05:15 WBC 23.1 H Hgb 11.1 L Plt Count 211 D PTT (Actin FS) 63.8 H Sodium Potassium Creatinine Random Vancomycin 7.8 L 12/28/18 06:00 WBC Hgb Plt Count PTT (Actin FS) Sodium 135 L Potassium 4.9 Creatinine 4.9 H Random Vancomycin - ....Imaging EKG: Image Reviewed Assessment/Plan Assessment/Plan ECG: rapid AF, mild NSST-Ts likely rate related Echo 07/01: TDS. nl LVSF, probably normal RV. mild AI. mild-mod MR/TR Renal/bladder sono: no hydro, ? 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 clot, vs other echo 12/2018 nl LV, RV not well visualized, grade II diastolic dysfunction, mild MR, mild TR, PASP >34 mmHg, mild AR Septic shock: -BCX +MSSA -pt is s/p PM generator change at [facility] (dr carbajal) on 10/11/18- pocket site no erythema, tenderness, fluctuance, less likely pocket infection. per Dr. Bassett d /w EP continue abx for now if recurrent fevers on abx can consider ZENY. so far repeat bld cx ngtd. -wean pressors CARLOS, urinary retention with indwelling nelson: -plan per crit care, renal/ PAF: rates reasonable -On PO Amio -was on UGH gtts, in case need for invasive procedure. -Now on Eliquis: please adjust dose to 2.5mg BID PPM, s/p generator change recently (Dr. Martin, [facility]): -as above
[2018-12-28 09:26] VITALS: TEMP 98
[2018-12-28] MEDS: AMIODARONE HCL 200 MG TABLET (FP) PO SCH (09:51)
[2018-12-28] MEDS: levETIRAcetam 500 MG/5 ML INJECTION VIAL IVPB SCH (09:51)
[2018-12-28] MEDS: APIXABAN 2.5 MG TABLET PO SCH (09:51)
--- NOTE | 2018-12-28 11:24 | PN ---
Teaching Attending Note Name of Resident: Angela Hunt ATTENDING PHYSICIAN STATEMENT I saw and evaluated the patient. I reviewed the resident's note and discussed the case with the resident. I agree with the resident's findings and plan as documented. SUBJECTIVE: Patient seen and examined in the ICU. Confused on NIPPV. Abdominal distention noted. No pressors. No clinical improvement. OBJECTIVE: Intake & Output 12/25/18 12/26/18 12/27/18 12/28/18 23:59 23:59 23:59 23:59 Intake Total 4022.4 4093.6 2005.8 495.6 Output Total 1600 700 350 50 Balance 2422.4 3393.6 1655.8 445.6 Weight 192 lb 192 lb 189 lb 6 oz 200 lb 8 oz Last Vital Signs Temp Pulse Resp BP Pulse Ox 98 F 90 28 H 92/40 L 93 L 12/28/18 10:00 12/28/18 10:00 12/28/18 10:00 12/28/18 10:00 12/28/18 04:27 Active Medications Albuterol/Ipratropium (Duoneb -) 1 amp NEB RQID [facility] Last Admin: 12/27/18 20:09 Dose: 1 amp Amiodarone HCl (Cordarone -) 200 mg PO DAILY [facility] Last Admin: 12/28/18 09:51 Dose: 200 mg Apixaban (Eliquis -) 2.5 mg PO DAILY [facility] Last Admin: 12/28/18 09:51 Dose: 2.5 mg Cefazolin Sodium (Ancef -) 1 gm IVPUSH Q8H [facility] Last Admin: 12/28/18 04:40 Dose: 1 gm Sodium Chloride (Normal Saline -) 1,000 mls @ 42 mls/hr IV ASDIR [facility] Last Admin: 12/28/18 09:51 Dose: 42 mls/hr Norepinephrine Bitartrate 8, (000 mcg/ Dextrose) 500 mls @ 18.75 mls/hr IV TITR [facility]; Protocol Last Admin: 12/27/18 17:23 Dose: 5 mcg/min, 18.75 mls/hr Levetiracetam (Keppra Injection -) 500 mg IVPB BID [facility] Last Admin: 12/28/18 09:51 Dose: 500 mg Levothyroxine Sodium (Synthroid -) 50 mcg PO DAILY@0700 [facility] Last Admin: 12/28/18 06:11 Dose: 50 mcg Morphine Sulfate (Morphine Sulfate) 2 mg IVPUSH Q4H PRN PRN Reason: PAIN LEVEL 6-10 Last Admin: 12/26/18 22:29 Dose: 2 mg Gen: Lethargic and tachypneic on NIPPV support Heart: RRR Lung: decreased breath sounds at the bases Abd: Distended and tympanic, (+) BS Ext: + edema Neuro: Lethargic and poorly responsive Laboratory Results - last 24 hr 12/27/18 12/27/18 12/28/18 13:20 13:20 05:15 WBC 23.1 H RBC 3.48 L Hgb 11.1 L Hct 33.7 L MCV 96.9 H MCH 31.9 MCHC 32.9 RDW 15.2 Plt Count 211 D MPV 10.6 Sodium Potassium Chloride Carbon Dioxide Anion Gap BUN Creatinine Est GFR (CKD-EPI)AfAm Est GFR (CKD-EPI)NonAf Random Glucose Calcium Phosphorus Magnesium Total Bilirubin AST ALT Alkaline Phosphatase Total Protein Albumin Urine Color Yellow Urine Appearance Cloudy Urine pH 5.5 Ur Specific [place] 1.018 Urine Protein Trace Urine Glucose (UA) Trace Urine Ketones Negative Urine Blood 4+ H Urine Nitrite Negative Urine Bilirubin Negative Urine Urobilinogen 0.2 Ur Leukocyte Esterase Moderate Urine WBC (Auto) 7.4 Urine RBC (Auto) 9.3 Urine Casts (Auto) 267.84 U Epithel Cells (Auto) 32.9 Urine Bacteria (Auto) 15 Ur Random Creatinine 71.0 U Random Total Protein 411.0 H Ur Random Sodium 29 L Ur Random Urea Nitrogn 231 L 12/28/18 06:00 WBC RBC Hgb Hct MCV MCH MCHC RDW Plt Count MPV Sodium 135 L Potassium 4.9 Chloride 103 Carbon Dioxide 17 L Anion Gap 15 BUN 75.7 H Creatinine 4.9 H Est GFR (CKD-EPI)AfAm 11.27 Est GFR (CKD-EPI)NonAf 9.73 Random Glucose 78 Calcium 9.2 Phosphorus 5.6 H Magnesium 2.8 H Total Bilirubin 4.4 H AST 48 H ALT 15 Alkaline Phosphatase 110 Total Protein 6.0 L Albumin 1.7 L Urine Color Urine Appearance Urine pH Ur Specific [place] Urine Protein Urine Glucose (UA) Urine Ketones Urine Blood Urine Nitrite Urine Bilirubin Urine Urobilinogen Ur Leukocyte Esterase Urine WBC (Auto) Urine RBC (Auto) Urine Casts (Auto) U Epithel Cells (Auto) Urine Bacteria (Auto) Ur Random Creatinine U Random Total Protein Ur Random Sodium Ur Random Urea Nitrogn ASSESSMENT AND PLAN: Acute Hypoxic Respiratory Failure MSSA Bacteremia UTI r/o Endocarditis Septic Shock Lactic Acidosis Acute on Chronic Renal Failure Atrial Fibrillation with RVR h/o PPM Hypothyroidism Anemia - Need to discuss further GOC with family - Reduce IPAP & EPAP and increase RR - ABX Per ID - f/u pending cultures - May need ZENY if persistently bacteremic - IVF - monitor urine output, creatinine - amiodarone - continue anticoagulation - O2 to keep SpO2 >90% - continue ICU monitoring - Overall prognosis appears poor - Continued ICU Monitoring Dr Feliz
[2018-12-28 12:15] VITALS: BP 75/35
--- NOTE | 2018-12-28 12:36 | PN ---
Physical Exam: SUBJECTIVE: Patient seen and examined this morning. Offered no complaints. States he is breathing well. Denies any chest pain or abdominal pain. OBJECTIVE: Vital Signs Period Temp Pulse Resp BP Sys/Currie Pulse Ox Last 24 Hr 97.2 F-98.2 F 86-117 22-38 71-142/35-70 92-95 GENERAL: AAOx1 (self), sleepy HEAD: Normal with no signs of trauma. EYES: PERRL, EOMI ENT: dry mucous membranes NECK: supple, trachea midline LUNGS: decreased breath sounds at bilateral bases, no accessory muscle use HEART: Tachycardic, S1, S2 ABDOMEN: distended abdomen, tympanic, soft, bowel sounds not auscultated EXTREMITIES: 2+ pulses, warm, well-perfused, no edema SKIN: Warm, dry, normal turgor, no rashes or lesions noted Laboratory Results - last 24 hr 12/27/18 12/27/18 12/28/18 13:20 13:20 05:15 WBC 23.1 H RBC 3.48 L Hgb 11.1 L Hct 33.7 L MCV 96.9 H MCH 31.9 MCHC 32.9 RDW 15.2 Plt Count 211 D MPV 10.6 Sodium Potassium Chloride Carbon Dioxide Anion Gap BUN Creatinine Est GFR (CKD-EPI)AfAm Est GFR (CKD-EPI)NonAf Random Glucose Calcium Phosphorus Magnesium Total Bilirubin AST ALT Alkaline Phosphatase Total Protein Albumin Urine Color Yellow Urine Appearance Cloudy Urine pH 5.5 Ur Specific [place] 1.018 Urine Protein Trace Urine Glucose (UA) Trace Urine Ketones Negative Urine Blood 4+ H Urine Nitrite Negative Urine Bilirubin Negative Urine Urobilinogen 0.2 Ur Leukocyte Esterase Moderate Urine WBC (Auto) 7.4 Urine RBC (Auto) 9.3 Urine Casts (Auto) 267.84 U Epithel Cells (Auto) 32.9 Urine Bacteria (Auto) 15 Ur Random Creatinine 71.0 U Random Total Protein 411.0 H Ur Random Sodium 29 L Ur Random Urea Nitrogn 231 L 12/28/18 06:00 WBC RBC Hgb Hct MCV MCH MCHC RDW Plt Count MPV Sodium 135 L Potassium 4.9 Chloride 103 Carbon Dioxide 17 L Anion Gap 15 BUN 75.7 H Creatinine 4.9 H Est GFR (CKD-EPI)AfAm 11.27 Est GFR (CKD-EPI)NonAf 9.73 Random Glucose 78 Calcium 9.2 Phosphorus 5.6 H Magnesium 2.8 H Total Bilirubin 4.4 H AST 48 H ALT 15 Alkaline Phosphatase 110 Total Protein 6.0 L Albumin 1.7 L Urine Color Urine Appearance Urine pH Ur Specific [place] Urine Protein Urine Glucose (UA) Urine Ketones Urine Blood Urine Nitrite Urine Bilirubin Urine Urobilinogen Ur Leukocyte Esterase Urine WBC (Auto) Urine RBC (Auto) Urine Casts (Auto) U Epithel Cells (Auto) Urine Bacteria (Auto) Ur Random Creatinine U Random Total Protein Ur Random Sodium Ur Random Urea Nitrogn Active Medications Generic Name Dose Route Start Last Admin Trade Name Freq PRN Reason Stop Dose Admin Albuterol/Ipratropium 1 amp 12/26/18 12:00 12/28/18 11:32 Duoneb - NEB 1 amp RQID [facility] Administration Amiodarone HCl 200 mg 12/27/18 13:00 12/28/18 09:51 Cordarone - PO 200 mg DAILY [facility] Administration Apixaban 2.5 mg 12/27/18 12:45 12/28/18 09:51 Eliquis - PO 2.5 mg DAILY [facility] Administration Cefazolin Sodium 1 gm 12/27/18 13:00 12/28/18 04:40 Ancef - IVPUSH 1 gm Q8H [facility] Administration Sodium Chloride 1,000 mls @ 42 mls/hr 12/27/18 09:15 12/28/18 09:51 Normal Saline - IV 42 mls/hr ASDIR [facility] Administration Norepinephrine Bitartrate 8, 500 mls @ 18.75 mls/hr 12/27/18 17:15 12/27/18 17:23 000 mcg/ Dextrose IV 5 mcg/min TITR [facility] 18.75 mls/hr Administration Protocol 5 MCG/MIN Levetiracetam 500 mg 12/23/18 22:00 12/28/18 09:51 Keppra Injection - IVPB 500 mg BID [facility] Administration Levothyroxine Sodium 50 mcg 12/25/18 07:00 12/28/18 06:11 Synthroid - PO 50 mcg DAILY@0700 [facility] Administration Morphine Sulfate 2 mg 12/26/18 18:11 12/26/18 22:29 Morphine Sulfate IVPUSH 2 mg Q4H PRN Administration PAIN LEVEL 6-10 ASSESSMENT/PLAN: Patient is an 88 yo M with a PMHx of HTN, hx TIA, dysphagia, PPM, BPH (off eliquis, scheduled for TURP), recent admission for UTI, presented to the ED from [facility] because of weakness, hypotension, and lethargy. Admitted for uncontrolled Afib w RVR and Septic shock 2/2 to UTI. #Neuro - AOx3, monitor - continue keppra #Cardio - hypotension 2/2 septic shock - R IJ CVC placed 12/23 for pressors - started on Levophed again, 10mcg - on PO Amiodorone - Heparin drip discontinued - started on Eliquis home dose - Echo 12/24 showed normal EF. Mild tricuspid and Aortic regurg. No vegetations seen. - pt is s/p PM generator change at [facility] (Dr. De La Cruz) on 10/11/18- pocket site without erythema, tenderness, fluctuance. less likely pocket infection. Per Dr. Bassett d/w EP continue abx for now. If recurrent fevers on abx can consider ZENY - appreciate cards recs #ID - Septic Shock 2/2 UTI - leukocytosis, WBC from 14 -> 10.7 -> 26 -> 23.1 - Continue Cefazolin - 2 sets of blood cx +MSSA, 3rd set with Staph Latex Coag Positive - will need ZENY if bacteremia persists - appreciate ID recs #Pulmonary - on BIPAP - maintain spO2 >90% - Will trial patient on non-rebreather to give a break from BiPAP #GI - chopped diet - KUB suggestive of obstruction. Will consider CT # - CARLOS likely 2/2 obstructive uropathy, hx BPH - BUN/Cr uptrendin.7/4.9 - TURP delayed under patient is clinically improved - Kidney/bladder/abdominal US 12/23 showed partially distended urinary bladder. Masslike density within the urinary bladder measuring 4.8cm, Differential diagnosis includes a large blood clot versus a urinary blader mass/neoplasm. Will need follow up. - Perez in place - I/O - appreciate renal recs #Endocrine - hx of hypothyroidism - Continue Synthroid #Ppx - Eliquis - no GI ppx #FEN - NS @42mls/hr - chopped diet #Dispo - continue ICU monitoring - Patient is DNR/DNI Visit type - Emergency Visit Emergency Visit: Yes ED Registration Date: 12/23/18 Care time: The patient presented to the Emergency Department on the above date and was hospitalized for further evaluation of their emergent condition. - New Patient This patient is new to me today: No - Critical Care Critical Care patient: Yes Total Critical Care Time (in minutes): 36 Critical Care Statement: The care of this patient involved high complexity decision making to prevent further life threatening deterioration of the patient 's condition and/or to evaluate & treat vital organ system(s) failure or risk of failure. ATTENDING PHYSICIAN STATEMENT I saw and evaluated the patient. I reviewed the resident's note and discussed the case with the resident. I agree with the resident's findings and plan as documented. SUBJECTIVE: OBJECTIVE: ASSESSMENT AND PLAN:
--- NOTE | 2018-12-28 12:53 | PN ---
Progress Note (short form) - Note Progress Note: Alerted by nurse that patient's heart rate and breathing was slowing down. Patient bradycardic and without respirations in room. Patient is DNR/DNI, MOLST form in chart. PE: Negative Dolls eye reflex Negative Pupillary reflex No heartbeat auscultated No breath sounds auscultated bilaterally No Carotid, femoral, radial, or pedal pulses palpated Time of called at 1245. ICU attending notified. PCP, Dr. Nicholson, notified. Next of kin, Yanely Hernándezo, spoken with and notified. Vito notified.
--- NOTE | 2018-12-28 14:43 | PN ---
Progress Note (short form) - Note Progress Note: 88 y/o male found lying in bed, awake and alert. Bipap in place. States month is November. No s/s of pain or discomfort. Vital Signs Period Temp Pulse Resp BP Sys/Currie Pulse Ox Last 24 Hr 97.2 F-98.2 F 90-117 22-38 71-142/35-70 92-95 CBC, BMP 12/28/18 05:15 12/28/18 06:00 HEENT- NL Neck- Trachea Midline Lungs- Diminished bilaterally Heart- S1/S2 Abd- Distended, NT Ext- 2+ pulses. No LE edema Active Medications Albuterol/Ipratropium (Duoneb -) 1 amp NEB RQID [facility] Last Admin: 12/28/18 11:32 Dose: 1 amp Amiodarone HCl (Cordarone -) 200 mg PO DAILY [facility] Last Admin: 12/28/18 09:51 Dose: 200 mg Apixaban (Eliquis -) 2.5 mg PO DAILY [facility] Last Admin: 12/28/18 09:51 Dose: 2.5 mg Cefazolin Sodium (Ancef -) 1 gm IVPUSH Q8H [facility] Last Admin: 12/28/18 04:40 Dose: 1 gm Sodium Chloride (Normal Saline -) 1,000 mls @ 42 mls/hr IV ASDIR [facility] Last Admin: 12/28/18 09:51 Dose: 42 mls/hr Norepinephrine Bitartrate 8, (000 mcg/ Dextrose) 500 mls @ 18.75 mls/hr IV TITR [facility]; Protocol Last Admin: 12/27/18 17:23 Dose: 5 mcg/min, 18.75 mls/hr Levetiracetam (Keppra Injection -) 500 mg IVPB BID [facility] Last Admin: 12/28/18 09:51 Dose: 500 mg Levothyroxine Sodium (Synthroid -) 50 mcg PO DAILY@0700 [facility] Last Admin: 12/28/18 06:11 Dose: 50 mcg Morphine Sulfate (Morphine Sulfate) 2 mg IVPUSH Q4H PRN PRN Reason: PAIN LEVEL 6-10 Last Admin: 12/26/18 22:29 Dose: 2 mg Assmt / plan # Septic shock / lactic acidosis - ? source MSSA bacteremia blood c/s repeated x 3 appreciate ID follow up IV Cefazolin # Obstructive uropathy similar event on last hospitalization ( ARF due to obstruction ) nelson in place consult - was pending TURP # A fib - admitted with RVR (2/2 AKR / Obs uropathy /septic shock) Continue Amiodarone drip + bacteremia ?? repeat cultures pending Appreciate Cardio # AKF continue IV fluids trend renal function Problem List - Problems (1) Acute renal failure Code(s): N17.9 - ACUTE KIDNEY FAILURE, UNSPECIFIED Qualifiers: Acute renal failure type: unspecified Qualified Code(s): N17.9 - Acute kidney failure, unspecified (2) Atrial fibrillation with RVR Code(s): I48.91 - UNSPECIFIED ATRIAL FIBRILLATION (3) BPH (benign prostatic hyperplasia) Code(s): N40.0 - BENIGN PROSTATIC HYPERPLASIA WITHOUT LOWER URINRY TRACT SYMP (4) H/O: CVA (cerebrovascular accident) Code(s): Z86.73 - PRSNL HX OF TIA (TIA), AND CEREB INFRC W/O RESID DEFICITS (5) Hypertension Code(s): I10 - ESSENTIAL (PRIMARY) HYPERTENSION (6) Hypothyroid Code(s): E03.9 - HYPOTHYROIDISM, UNSPECIFIED (7) Urinary retention due to benign prostatic hyperplasia Code(s): N40.1 - BENIGN PROSTATIC HYPERPLASIA WITH LOWER URINARY TRACT SYMP; R33.8 - OTHER RETENTION OF URINE
== END 2018-12-28 12:45 | disposition expired | DRG 871 ==
LOC: JER 10:40 → JERBED 13:49 → JICU 19:58
PROVIDERS: ADMIT Family Medicine; ATTEND Family Medicine
PROC: 05HM33Z Insertion of Infusion Device into Right Internal Jugular Vein, Percutaneous Approach (ICD-10-PCS; principal; 2018-12-23)
DX: A41.01 Sepsis due to Methicillin susceptible Staphylococcus aureus (principal); R65.21 Severe sepsis with septic shock; J96.01 Acute respiratory failure with hypoxia; N17.9 Acute kidney failure, unspecified; N13.30 Unspecified hydronephrosis; I38 Endocarditis, valve unspecified; N39.0 Urinary tract infection, site not specified; E87.2 Acidosis; R33.9 Retention of urine, unspecified; I10 Essential (primary) hypertension; N13.9 Obstructive and reflux uropathy, unspecified; N40.1 Benign prostatic hyperplasia with lower urinary tract symptoms; I95.9 Hypotension, unspecified; D72.829 Elevated white blood cell count, unspecified; E03.9 Hypothyroidism, unspecified; D64.9 Anemia, unspecified; R00.1 Bradycardia, unspecified; I48.0 Paroxysmal atrial fibrillation; E87.70 Fluid overload, unspecified
CPT/HCPCS: 36415; 71045-TC-FY; 74018-TC-FY; 76700-TC; 76775; 76775-TC; 76856-TC; 76937; 80053; 81003; 82436; 82550; 82553; 82565; 83605; 83735; 83880; 84100; 84133; 84156; 84300; 84443; 84484; 84540; 85025; 85027; 85610; 85730; 86850; 86900; 86901; 87040; 87086; 87186; 87205; 93005; 93010; 93306-TC; 94640; 94660; 99285-25; G0480; J1644; J7030